=== PATIENT | female | born 1970 | race Caucasian/White ===

== ENCOUNTER 2023-12-24 06:16 | Observation (INO) | payer OTHER, MEDICAID, SELFPAY ==
[2023-12-24] VITALS (15 sets, daily range): BP systolic 96–139; BP diastolic 52–88; PULSE 75–105; RESP 15–18; TEMP 35.5–36.4; O2SAT 94–100; BMI 23.6
--- NOTE | 2023-12-24 06:37 | PC.NURSE ---
see triage note
--- NOTE | 2023-12-24 07:46 | DI.US.S_ITS ---
PROCEDURE: US PERIPH VENOUS LOW EXTREM RT INDICATIONS: redness swelling TECHNIQUE: Real-time imaging, as well as color and pulse Doppler interrogation, were performed of the lower extremity deep veins from the inguinal ligament to the popliteal fossa, with documentation of the visualized calf veins. COMPARISON: None. FINDINGS: The common femoral, femoral, popliteal, and the visualized calf veins are normally compressible, and free of intraluminal thrombus. Color and pulse Doppler demonstrate normal phasic intraluminal flow. There is normal augmentation response to distal compression maneuver. IMPRESSION: No findings of lower extremity deep venous thrombosis. Dictated by: Matthew Reinoso M.D. on 12/24/2023 at 9:10 Approved by: Matthew Reinoso M.D. on 12/24/2023 at 9:10
[2023-12-24 07:49] LABS: Add Manual Diff / Slide Review NO; Basophils Absolute Auto 100 /uL (0-100); Basophils Percent Auto 0.4 % (0-2); Eosinophils Absolute Auto 0 /uL (0-450); Eosinophils Percent Auto 0.1 % (2-4); Hematocrit 43.9 % (36-46); Hemoglobin 14.4 g/dL (12.0-16.0); Lymphocytes Absolute Auto 2000 /uL (1100-4500); Lymphocytes Percent Auto 8.4 % (25-40); Mean Corpuscular HGB Conc 32.7 % (30-36); Mean Corpuscular Hemoglobin 26.6 PG (26-34); Mean Corpuscular Volume 81.2 fL (80-100); Monocytes Absolute Auto 800 /uL (0-900); Monocytes Percent Auto 3.4 % (3-14); Neutrophils Absolute Auto 20600 /uL (1500-7000); Neutrophils Percent Auto 87.7 % (50-75); Platelet Count 367 X10^3/uL (150-400); Red Blood Cell Count 5.41 X10^6/uL (4.0-5.2); Red Cell Distribution Width 16.2 % (11.6-14.8); White Blood Cell Count 23.5 X10^3/uL (4.5-11.0)
--- NOTE | 2023-12-24 07:56 | ED_ITS ---
HPI - Skin/Abscess/Foreign Bdy General Chief complaint: Skin/Abscess/Foreign Body Stated complaint: right leg/cellulitis insect bite? Time Seen by Provider: 12/24/23 06:49 Source: patient Mode of arrival: Wheelchair History of Present Illness HPI narrative: Patient 53-year-old female active fentanyl use her she both injects and smokes presenting today with right leg redness and pain. She says that she woke up like this this morning possibly a spider bite. She denies injecting in her leg. She has multiple scars and wounds on her leg. She denies fever chills chest pain cough shortness of breath. She takes no prescribed medications. She admits to abusing fentanyl just prior to arrival. Related Data Home Medications Medication Instructions Recorded Confirmed No Known Home Medications 12/24/23 12/24/23 Allergies Allergy/AdvReac Type Severity Reaction Status Date / Time No Known Drug Allergies Allergy Verified 12/24/23 06:40 Patient History Social History household members: significant other Smoking Status: Current every day smoker alcohol intake: current Exam Initial Vital Signs Initial Vital Signs: Vital Signs Temperature 97.6 F 12/24/23 06:28 Pulse Rate 105 H 12/24/23 06:28 Respiratory Rate 16 12/24/23 06:28 Blood Pressure 139/88 12/24/23 06:28 Pulse Oximetry 96 12/24/23 06:28 Oxygen Delivery Method Room Air 12/24/23 06:28 GENERAL: Alert disheveled 53-year-old female . HEENT: Head atraumatic,EOMI, pupils reactive, face symmetric, [moist] mucous membranes CARDIOVASCULAR: Regular rate and rhythm without murmurs, rubs or gallops. RESPIRATORY: Breath sounds equal bilaterally, no wheezes rales or rhonchi. ABDOMEN: Soft, nontender. Normoactive bowel sounds all 4 quadrants. No guarding or rebound. EXTREMITIES: Normal range of motion, no clubbing or edema. Neurovascularly intact NEUROLOGICAL: Alert and oriented x4. SKIN: Right lower extremity significant erythema with streaking up beyond knee, swelling, scarring. 1 white area 1 cm anterior velazquez no fluctuation. Multiple other scars noted on other extremities. Course Orders Ordered: ED Orders 12/24/23 07:36 CBC Auto Diff [Complete Blood Count AUTO DIFF] Stat CMP [Comprehensive Metabolic Panel] Stat Lactate (Lactic Acid) Stat Procalcitonin Stat 12/24/23 07:46 US periph venous low extrem rt Stat 12/24/23 07:50 Blood Culture Stat 12/24/23 07:58 CT LE RT w con Stat 12/24/23 12:36 Urine Drug Screen, Rapid Stat Discontinued Medications Acetaminophen (Acetaminophen 325 Mg Tablet) 975 mg PO NOW ONE Stop: 12/24/23 08:04 Last Admin: 12/24/23 08:10 Dose: 975 mg Documented By: EDGAR Ceftriaxone Sodium 1,000 mg/ (Sodium Chloride) 100 mls @ 200 mls/hr IV NOW ONE Stop: 12/24/23 07:47 Last Infusion: 12/24/23 08:44 Dose: Infused Documented By: Admin: 12/24/23 08:03 Dose: 200 mls/hr Documented By: EDGAR Vancomycin HCl/Dextrose (Vancomycin) 1,500 mg in 300 mls @ 200 mls/hr IV NOW ONE Stop: 12/24/23 09:15 Last Infusion: 12/24/23 10:45 Dose: Infused Documented By: Admin: 12/24/23 08:44 Dose: 200 mls/hr Documented By: EDGAR Ketorolac Tromethamine (Ketorolac 30 Mg/Ml Vial) 15 mg IV NOW ONE Stop: 12/24/23 08:04 Last Admin: 12/24/23 08:10 Dose: 15 mg Documented By: EDGAR Vital Signs Vital signs: Vital Signs - 8 hr 12/24/23 06:28 12/24/23 08:05 12/24/23 08:25 Temperature 97.6 F Pulse Rate 105 H 86 Respiratory Rate 16 Blood Pressure 139/88 115/64 Pulse Oximetry 96 97 Oxygen Delivery Method Room Air 12/24/23 08:25 12/24/23 08:27 12/24/23 08:27 Temperature Pulse Rate 90 90 Respiratory Rate Blood Pressure 109/63 Pulse Oximetry 98 99 Oxygen Delivery Method 12/24/23 08:30 12/24/23 08:30 12/24/23 09:00 Temperature Pulse Rate 88 Respiratory Rate Blood Pressure 111/58 L 111/64 Pulse Oximetry 95 Oxygen Delivery Method 12/24/23 09:00 12/24/23 09:30 12/24/23 09:30 Temperature Pulse Rate 90 78 Respiratory Rate 18 Blood Pressure 102/59 L Pulse Oximetry 100 100 Oxygen Delivery Method 12/24/23 10:00 12/24/23 10:00 12/24/23 10:30 Temperature Pulse Rate 80 Respiratory Rate Blood Pressure 108/60 96/52 L Pulse Oximetry 100 Oxygen Delivery Method Room Air 12/24/23 10:30 12/24/23 11:00 12/24/23 11:00 Temperature Pulse Rate 77 81 Respiratory Rate Blood Pressure 103/57 L Pulse Oximetry 100 98 Oxygen Delivery Method Room Air 12/24/23 11:30 12/24/23 11:30 12/24/23 12:00 Temperature 97.5 F L Pulse Rate 94 H Respiratory Rate 18 Blood Pressure 111/73 108/55 L Pulse Oximetry 99 Oxygen Delivery Method 12/24/23 12:00 Temperature Pulse Rate 80 Respiratory Rate Blood Pressure Pulse Oximetry 95 Oxygen Delivery Method Room Air MDM - Skin/Abscess/Foreign Bdy Lab Data 12/24/23 07:36 12/24/23 07:36 Labs: Lab Results 12/24/23 Range/Units 07:36 WBC 23.5 H (4.5-11.0) X10^3/uL RBC 5.41 H (4.0-5.2) X10^6/uL Hgb 14.4 (12.0-16.0) g/dL Hct 43.9 (36-46) % MCV 81.2 (80-100) fL MCH 26.6 (26-34) PG MCHC 32.7 (30-36) % RDW 16.2 H (11.6-14.8) % Plt Count 367 (150-400) X10^3/uL Neut % (Auto) 87.7 H (50-75) % Lymph % (Auto) 8.4 L (25-40) % [place] % (Auto) 3.4 (3-14) % Eos % (Auto) 0.1 L (2-4) % Baso % (Auto) 0.4 (0-2) % Neut # (Auto) 43614 H (7323-9335) /uL Lymph # (Auto) 2000 (5570-5725) /uL [place] # (Auto) 800 (0-900) /uL Eos # (Auto) 0 (0-450) /uL Baso # (Auto) 100 (0-100) /uL Sodium 137 (137-145) mmol/L Potassium 3.2 L (3.4-5.1) mmol/L Chloride 100 (98-107) mmol/L Carbon Dioxide 29 (22-32) mmol/L BUN 13 (7-17) mg/dL Creatinine 0.83 (0.52-1.04) mg/dL Estimated GFR > 60 (>60) mL/min BUN/Creatinine Ratio 15.7 (6-22) Glucose 113 H (70-100) mg/dL Lactate 1.0 (0.7-2.1) mmol/L Calcium 9.4 (8.4-10.2) mg/dL Total Bilirubin 0.9 (0.2-1.3) mg/dL AST 46 H (14-36) IU/L ALT 41 H (<35) IU/L Alkaline Phosphatase 195 H (38-126) U/L Total Protein 7.9 (6.3-8.2) g/dL Albumin 4.1 (3.5-5.0) g/dL Globulin 3.8 (1.7-4.1) g/dL Albumin/Globulin Ratio 1.1 (1.0-2.8) Procalcitonin 2.10 H (<0.5) ng/mL MDM Narrative Medical decision making narrative: [facility] CC: Right leg redness Complicating co-morbidities: IVDA Fentanyl abuse Medical records reviewed: None Differential considered: Cellulitis, necrotizing fasciitis abscess DVT Exam documented above, pertinent findings include: Significant erythema with swelling redness streaking up beyond knee. 1 wound very small 1 cm 1 cm anterior velazquez Lab Test results independently reviewed as above. Pertinent findings: WBC 23.5 Lactate 1.0 Potassium 3.2, sodium 137 creatinine 0.8 UDS positive for opiates methamphetamine amphetamine and cocaine Imaging studies independently reviewed: Ultrasound Negative for DVT CT No abscess or gas performing organisms Consultations: Dr. Wick accepts Treatments: Vancomycin Rocephin Re-evaluations: [ ] Discussion: Patient 53-year-old female high-risk IVDA presenting today with right leg cellulitis. She has significant erythema swelling and streaking up her leg. No evidence of severe sepsis she has a normal lactate of 1.0 however she is significant leukocytosis of 23. Blood pressure and heart rate are within normal limits. CT does not show any gas forming organism no evidence of necrotizing fasciitis no abscess. No DVT. Discharge Plan Departure Patient Disposition: Admitted As Inpatient Clinical Impression: Cellulitis Admit Date/Time: 12/24/23 12:04 Admit Provider: Truman Wick V
--- NOTE | 2023-12-24 07:58 | DI.CT.S_ITS ---
PROCEDURE: CT LE RT W CON INDICATIONS: r/o abcess and gas TECHNIQUE: After the administration of intravenous contrast, 3 mm axial sections acquired of the right lower extremity , with coronal and sagittal reformats. COMPARISON: None. FINDINGS: Image quality: Diagnostic. Bones: No acute fracture or dislocation. Tricompartmental degenerative changes of the right knee. No suspicious osseous lesions. Soft tissues: Visualized vascular structures are well opacified throughout. Diffuse subcutaneous soft tissue edema and mild skin thickening of the mid thigh through the level of the proximal lower leg. There is more pronounced subcutaneous soft tissue stranding and skin thickening over the right lower leg and foot. No organized fluid collection. No CT evidence for soft tissue gas. IMPRESSION: Skin thickening and subcutaneous soft tissue inflammation of the right lower extremity extending from the mid thigh through the foot without evidence for organized fluid collections or soft tissue gas. Dictated by: Matthew Reinoso M.D. on 12/24/2023 at 8:52 Approved by: Matthew Reinoso M.D. on 12/24/2023 at 8:55
[2023-12-24 07:59] LABS: Alanine Aminotransferase 41 IU/L (<35); Albumin 4.1 g/dL (3.5-5.0); Albumin Globulin Ratio 1.1 (1.0-2.8); Alkaline Phosphatase 195 U/L (38-126); Aspartate Aminotransferase 46 IU/L (14-36); BUN Creatinine Ratio 15.7 (6-22); Bilirubin Total 0.9 mg/dL (0.2-1.3); Blood Urea Nitrogen 13 mg/dL (7-17); Calcium 9.4 mg/dL (8.4-10.2); Carbon Dioxide 29 mmol/L (22-32); Chloride 100 mmol/L (98-107); Estimated Glomerular Filt Rate > 60 mL/min (>60); Globulin 3.8 g/dL (1.7-4.1); Glucose 113 mg/dL (70-100); HEMOLYSIS < 15 (0-50); Potassium 3.2 mmol/L (3.4-5.1); Sodium 137 mmol/L (137-145); Total Protein 7.9 g/dL (6.3-8.2)
[2023-12-24] MEDS: cefTRIAXone 1,000 MG in SODIUM CHLORIDE 0.9% 100 ML 200 MG IV (08:03)
[2023-12-24] MEDS: ACETAMINOPHEN 325 MG TABLET 975 MG PO (08:10)
[2023-12-24] MEDS: KETOROLAC 30 MG/ML VIAL 15 MG IV (08:10)
--- NOTE | 2023-12-24 08:13 | PC.NURSE ---
Arrived in room. pt diaphoretic, beads of sweat on the head and face. given wet washcloth. IV US placed 18G RAC. pt with extensive scarring and track earl on bilateral arms. RLE erythmatic, tender, swollen, with 1 small intact papule the size of a pencil eraser on medial aspect of R velazquez. Pt reports pain. Admits to fentanyl use prior to arrival. Tylenol and torodol given per MAY. Blood cultures drawn and pt receiving IV rocephin.
[2023-12-24] MEDS: VANCOMYCIN 1,500 MG/300 ML PIGGYBACK 200 MG IV (08:44)
--- NOTE | 2023-12-24 10:21 | PC.NURSE ---
I assited the patient to try and urinate for a sample, she tried to use the bedpan but was unsuccessful and wanted to try a bedside, I did a stand by assist for the patient to use the commode. The patient was unable to produce urine but stated I feel like I need to pee but I can't. I then did a bladder scan to make sure of no retention, the bladder scan showed 190mL of urine in her bladder. RN made aware.
[2023-12-24 12:52] LABS: Ur Creatinine Normal (Normal); Ur Specific Gravity Normal (Normal); Urine pH Normal (Normal)
[2023-12-24 12:53] LABS: Urine Amphetamines Positive (Negative); Urine Cocaine Positive (Negative); Urine MDMA Positive (Negative); Urine Methamphetamines Positive (Negative); Urine Opiates Positive (Negative); Urine Phencyclidine Negative (Negative); Urine THC Negative (Negative)
[2023-12-24 12:54] LABS: Urine Barbiturates Negative (Negative); Urine Benzodiazepines Negative (Negative)
[2023-12-24 12:55] LABS: Urine Methadone Negative (Negative); Urine Oxycodone Negative (Negative); Urine Tricyclic Antidepressant Negative (Negative)
--- NOTE | 2023-12-24 13:19 | PC.WOUNDPHOT ---
Right lower extremity
--- NOTE | 2023-12-24 13:42 | PC.NURSE ---
Addendum entered by Analy Sanabria R.N. 12/24/23 14:24: Security removed items. I asked pt if she had anything else in her bag that might be unsafe. She said that she would go through the bag with me. Found jewelry, coins, cigarettes, flashlights, and other personal items. There were 5 needles in a side pouch which were disposed of in the sharps container. Police arrived at bedside. Original Note: 1335 During admission assessment going through pt belongings. Found box containing unknown substances and needles. Left room and called security. Security came to bedside to assess the situation.
--- NOTE | 2023-12-24 14:27 | P.HP_ITS ---
History of Present Illness History of Present Illness Date Patient Seen: 12/24/23 Time Patient Seen: 14:15 Chief complaint: right leg/cellulitis insect bite? Narrative: 53-year-old woman who actively uses injected and smoked fentanyl states she woke up this morning with right leg swelling and pain of the right leg. She suspected a spider bite, stating she does not inject drugs into her legs. She was noted to have multiple scars and wounds on her leg. Her urine drug screen was elevated and she had apparent drug paraphernalia in her personal belongings during her nursing intake evaluation on the medical floor. Security was called and subsequently lawn for splint was notified and confiscated material. She last used fentanyl IV last night and states she feels she is going into withdrawal. [facility] Social History household members: significant other Smoking Status: Current every day smoker alcohol intake: current Meds Home Medications and Allergies Home Medications Medication Instructions Recorded Confirmed Type No Known Home Medications 12/24/23 12/24/23 History Allergies Allergy/AdvReac Type Severity Reaction Status Date / Time No Known Drug Allergies Allergy Verified 12/24/23 06:40 Review of Systems Review of Systems ROS: Yes All systems reviewed with the patient and are negative except as otherwise documented Exam Vital Signs (past 8 hours): - 12/24/23 06:28 12/24/23 08:05 12/24/23 08:25 Temperature 97.6 F Pulse Rate 105 H 86 Respiratory Rate 16 Blood Pressure 139/88 115/64 Pulse Oximetry 96 97 Oxygen Delivery Method Room Air 12/24/23 08:25 12/24/23 08:27 12/24/23 08:27 Temperature Pulse Rate 90 90 Respiratory Rate Blood Pressure 109/63 Pulse Oximetry 98 99 Oxygen Delivery Method 12/24/23 08:30 12/24/23 08:30 12/24/23 09:00 Temperature Pulse Rate 88 Respiratory Rate Blood Pressure 111/58 L 111/64 Pulse Oximetry 95 Oxygen Delivery Method 12/24/23 09:00 12/24/23 09:30 12/24/23 09:30 Temperature Pulse Rate 90 78 Respiratory Rate 18 Blood Pressure 102/59 L Pulse Oximetry 100 100 Oxygen Delivery Method 12/24/23 10:00 12/24/23 10:00 12/24/23 10:30 Temperature Pulse Rate 80 Respiratory Rate Blood Pressure 108/60 96/52 L Pulse Oximetry 100 Oxygen Delivery Method Room Air 12/24/23 10:30 12/24/23 11:00 12/24/23 11:00 Temperature Pulse Rate 77 81 Respiratory Rate Blood Pressure 103/57 L Pulse Oximetry 100 98 Oxygen Delivery Method Room Air 12/24/23 11:30 12/24/23 11:30 12/24/23 12:00 Temperature 97.5 F L Pulse Rate 94 H Respiratory Rate 18 Blood Pressure 111/73 108/55 L Pulse Oximetry 99 Oxygen Delivery Method 12/24/23 12:00 12/24/23 12:44 Temperature Pulse Rate 80 80 Respiratory Rate 15 Blood Pressure 111/59 L Pulse Oximetry 95 98 Oxygen Delivery Method Room Air Room Air Oxygen Delivery Method Room Air Narrative Exam Narrative: GENERAL: This is a well-nourished, well-developed patient, in no apparent distress. HEAD: Atraumatic. Normocephalic. No temporal or scalp tenderness. EYES: Pupils equal round and reactive. Extraocular motions intact. No scleral icterus. No injection or drainage. ENT: Mucous membranes pink and moist. NECK: Trachea midline. No JVD, bruits or lymphadenopathy. Supple, nontender, no meningeal signs. CARDIOVASCULAR: Regular rate and rhythm without murmurs, gallops, or rubs. RESPIRATORY: Clear to auscultation. GASTROINTESTINAL: Abdomen soft, non-tender, nondistended. EXTREMITIES: No clubbing, cyanosis, or edema. BACK: Nontender without deformity or crepitance. No flank tenderness. NEUROLOGIC: Alert, oriented, speech fluent, full upper and lower motor strength, no focal deficits evident. DERMATOLOGIC: Right lower extremity with erythema from just above the ankle to the posterior thigh, with old scars along the lateral proximal calf and distal thigh from old healed injection sites. Objective Imaging Right lower extremity CT with contrast: Radiologist's impression: Skin thickening and subcutaneous soft tissue inflammation of the right lower extremity extending from the mid thigh through the foot without evidence for organized fluid collections or soft tissue gas. Right lower extremity venous ultrasound: Radiologist's impression: No findings of lower extremity deep venous thrombosis. Labs 12/24/23 07:36 12/24/23 07:36 Labs: Laboratory Results - last 24 hr 10/20/24 10/20/24 07:36 12:36 WBC 23.5 H RBC 5.41 H Hgb 14.4 Hct 43.9 MCV 81.2 MCH 26.6 MCHC 32.7 RDW 16.2 H Plt Count 367 Neut % (Auto) 87.7 H Lymph % (Auto) 8.4 L [place] % (Auto) 3.4 Eos % (Auto) 0.1 L Baso % (Auto) 0.4 Neut # (Auto) 86988 H Lymph # (Auto) 2000 [place] # (Auto) 800 Eos # (Auto) 0 Baso # (Auto) 100 Sodium 137 Potassium 3.2 L Chloride 100 Carbon Dioxide 29 BUN 13 Creatinine 0.83 Estimated GFR > 60 BUN/Creatinine Ratio 15.7 Glucose 113 H Lactate 1.0 Calcium 9.4 Total Bilirubin 0.9 AST 46 H ALT 41 H Alkaline Phosphatase 195 H Total Protein 7.9 Albumin 4.1 Globulin 3.8 Albumin/Globulin Ratio 1.1 Procalcitonin 2.10 H U Opiates 300ng/mL cut Positive H Ur Oxycodone Screen Negative Urine Methadone Screen Negative Ur Barbiturates Screen Negative U Tricyclic Antidepress Negative Ur Phencyclidine Scrn Negative Ur Amphetamines Screen Positive H U Methamphetamines Scrn Positive H Ur MDMA Scrn (Ecstasy) Positive H U Benzodiazepines Scrn Negative Urine Cocaine Screen Positive H U Marijuana (THC) Screen Negative Urine pH Normal Urine Specific [place] Normal Ur Creatinine Normal Assessment & Plan Assessment & Plan narrative: 1. Right lower extremity cellulitis. Continue IV ceftriaxone and vancomycin pending cultures. 2. Sepsis due to 1. With leukocytosis and tachycardia. Monitor with antibiotics and treatment. 3. Polysubstance abuse. Monitor for withdrawal. Start methadone 10 mg by mouth every 6 hours for fentanyl withdrawal. Law enforcement has confiscated drug paraphernalia. She is interested in referral for drug treatment options at discharge. 4. DVT prophylaxis. Low-dose Lovenox. 5. Code status: Full code. Plan: -admit as inpatient -IV antibiotics -follow cultures -methadone 10 mg every 6 hours -monitor for substance withdrawal -drug treatment referral -Lovenox -full code The patient is admitted inpatient status as she will require at least 2 midnights of inpatient level care. Quality MIPS - Admit I confirm the patient?s Advance Care Plan is present, Code status is documented, Surrogate decision maker is in patient?s record [If Yes, STOP here]: Yes [facility] - Meds 'Current medications' to include all prescriptions, [id number] products, herbals, cannabis/cannabidiol products, and vitamin/mineral/dietary (nutritional) supplements. I have utilized all available resources to obtain, update, or review the patient?s current medications. [If Yes, STOP here]: Yes [facility] Charge Codes Initial inpatient/observation care: 12111
[2023-12-24] MEDS: METHADONE 10 MG TABLET PO ×2 (15:36→23:52)
[2023-12-24] MEDS: VANCOMYCIN 750 MG/150 ML PIGGYBACK 150 MG IV (16:46)
[2023-12-25 00:06] VITALS: BP 132/72; PULSE 98; RESP 18; TEMP 36.7; O2SAT 93
[2023-12-25] MEDS: VANCOMYCIN 750 MG/150 ML PIGGYBACK 150 MG IV ×3 (01:44→17:07)
[2023-12-25] MEDS: KETOROLAC 30 MG/ML VIAL IV (04:06)
[2023-12-25 04:10] VITALS: BP 121/61; PULSE 95; RESP 18; TEMP 35.9; O2SAT 95
[2023-12-25 05:17] LABS: Add Manual Diff / Slide Review NO; Basophils Absolute Auto 100 /uL (0-100); Basophils Percent Auto 0.4 % (0-2); Eosinophils Absolute Auto 100 /uL (0-450); Eosinophils Percent Auto 0.5 % (2-4); Hematocrit 38.6 % (36-46); Hemoglobin 12.6 g/dL (12.0-16.0); Lymphocytes Absolute Auto 1800 /uL (1100-4500); Lymphocytes Percent Auto 7.6 % (25-40); Mean Corpuscular HGB Conc 32.7 % (30-36); Mean Corpuscular Hemoglobin 26.4 PG (26-34); Mean Corpuscular Volume 80.7 fL (80-100); Monocytes Absolute Auto 1300 /uL (0-900); Monocytes Percent Auto 5.3 % (3-14); Neutrophils Absolute Auto 20500 /uL (1500-7000); Neutrophils Percent Auto 86.2 % (50-75); Platelet Count 362 X10^3/uL (150-400); Red Blood Cell Count 4.78 X10^6/uL (4.0-5.2); White Blood Cell Count 23.8 X10^3/uL (4.5-11.0)
[2023-12-25 05:25] LABS: Alanine Aminotransferase 28 IU/L (<35); Albumin Globulin Ratio 0.9 (1.0-2.8); Alkaline Phosphatase 122 U/L (38-126); Aspartate Aminotransferase 28 IU/L (14-36); BUN Creatinine Ratio 20.3 (6-22); Bilirubin Total 0.4 mg/dL (0.2-1.3); Blood Urea Nitrogen 12 mg/dL (7-17); Calcium 8.6 mg/dL (8.4-10.2); Carbon Dioxide 29 mmol/L (22-32); Chloride 102 mmol/L (98-107); Estimated Glomerular Filt Rate > 60 mL/min (>60); Globulin 3.3 g/dL (1.7-4.1); Glucose 120 mg/dL (70-100); HEMOLYSIS 20 (0-50); Potassium 3.1 mmol/L (3.4-5.1); Sodium 136 mmol/L (137-145); Total Protein 6.3 g/dL (6.3-8.2)
[2023-12-25] MEDS: METHADONE 10 MG TABLET PO ×3 (06:28→17:07)
[2023-12-25] MEDS: cefTRIAXone 1,000 MG in SODIUM CHLORIDE 0.9% 100 ML 200 MG IV (06:28)
[2023-12-25 08:00] VITALS: BP 101/64; PULSE 98; RESP 16; TEMP 36.1; O2SAT 94
--- NOTE | 2023-12-25 08:23 | PM.PN.1 ---
Subjective Subjective Interval history: Summary: 53-year-old woman who actively uses injected and smoked fentanyl states she woke up this morning with right leg swelling and pain of the right leg. She suspected a spider bite, stating she does not inject drugs into her legs. She was noted to have multiple scars and wounds on her leg. Her urine drug screen was elevated and she had apparent drug paraphernalia in her personal belongings during her nursing intake evaluation on the medical floor. Security was called and subsequently lawn for splint was notified and confiscated material. She last used fentanyl IV last night and states she feels she is going into withdrawal. S: Her leg feels better today. It is still red and quite swollen. It was still pain fall. She denies any fevers. No nausea. She did sleep well last night. Exam Vital Signs (past 8 hours): - 12/25/23 04:10 Temperature 96.7 F L Pulse Rate 95 H Respiratory Rate 18 Blood Pressure 121/61 Pulse Oximetry 95 Oxygen Flow Rate 0 Oxygen Delivery Method Room Air Oxygen Flow Rate 0 Narrative Exam Narrative: NAD, alert and oriented. Fluent speech. Lungs are clear, normal rate and effort. Heart is regular, no murmur gallop or rub. Abdomen is soft, non distended. Extremities: Right leg is swollen and pink. There are no focal fluid collections. Multiple skin lesions are noted. Objective Imaging Multiple studies:: Radiologist's impression: Right lower extremity CT with contrast: Radiologist's impression: Skin thickening and subcutaneous soft tissue inflammation of the right lower extremity extending from the mid thigh through the foot without evidence for organized fluid collections or soft tissue gas. Right lower extremity venous ultrasound: Radiologist's impression: No findings of lower extremity deep venous thrombosis. Labs 12/25/23 05:03 12/25/23 05:03 Labs: Laboratory Results - last 24 hr 12/24/23 12/24/23 12/25/23 07:36 12:36 05:03 WBC 23.8 H RBC 4.78 Hgb 12.6 Hct 38.6 MCV 80.7 MCH 26.4 MCHC 32.7 RDW 16.0 H Plt Count 362 Neut % (Auto) 86.2 H Lymph % (Auto) 7.6 L [place] % (Auto) 5.3 Eos % (Auto) 0.5 L Baso % (Auto) 0.4 Neut # (Auto) 38159 H Lymph # (Auto) 1800 [place] # (Auto) 1300 H Eos # (Auto) 100 Baso # (Auto) 100 Sodium 136 L Potassium 3.1 L Chloride 102 Carbon Dioxide 29 BUN 12 Creatinine 0.59 Estimated GFR > 60 BUN/Creatinine Ratio 20.3 Glucose 120 H Calcium 8.6 Total Bilirubin 0.4 AST 28 ALT 28 Alkaline Phosphatase 122 D Total Protein 6.3 Albumin 3.0 L Globulin 3.3 Albumin/Globulin Ratio 0.9 L Procalcitonin 2.10 H U Opiates 300ng/mL cut Positive H Ur Oxycodone Screen Negative Urine Methadone Screen Negative Ur Barbiturates Screen Negative U Tricyclic Antidepress Negative Ur Phencyclidine Scrn Negative Ur Amphetamines Screen Positive H U Methamphetamines Scrn Positive H Ur MDMA Scrn (Ecstasy) Positive H U Benzodiazepines Scrn Negative Urine Cocaine Screen Positive H U Marijuana (THC) Screen Negative Urine pH Normal Urine Specific [place] Normal Ur Creatinine Normal PFSH Social History household members: significant other Smoking Status: Current every day smoker alcohol intake: current Assessment & Plan Assessment & Plan narrative: 1. Right lower extremity cellulitis. Continue IV ceftriaxone and vancomycin pending cultures. 2. Sepsis due to 1. With leukocytosis and tachycardia. Monitor with antibiotics and treatment. 3. Polysubstance abuse. Monitor for withdrawal. Start methadone 10 mg by mouth every 6 hours for fentanyl withdrawal. Law enforcement has confiscated drug paraphernalia. She is interested in referral for drug treatment options at discharge. 4. DVT prophylaxis. Low-dose Lovenox. 5. Code status: Full code. Plan: -continue IV antibiotics -follow cultures -methadone 10 mg every 6 hours, continue. -monitor for substance withdrawal, none seen. -drug treatment referral -Lovenox for DVT prophylaxis. -full code -[place] 12/25 The patient is admitted inpatient status as she will require at least 2 midnights of inpatient level care. Time-Based Coding :: [TOTAL MINUTES] spent with patient and on the chart (including review of chart, obtaining history, exam, reviewing outside data, placing orders, documenting exam and treatment plan, and counseling patient) on [DATE].
[2023-12-25 09:03] LABS: Vancomycin Trough 11.1 ug/mL (10-20)
[2023-12-25] MEDS: ENOXAPARIN 40 MG/0.4 ML SYRINGE SUBCUT (09:24)
[2023-12-25] MEDS: POTASSIUM CHLORIDE 20 MEQ TAB 40 MEQ PO ×2 (09:24→13:30)
[2023-12-25 12:00] VITALS: BP 117/70; PULSE 83; RESP 17; TEMP 36.3; O2SAT 95
[2023-12-25 18:00] VITALS: BP 117/78; PULSE 80; RESP 14; TEMP 36.4; O2SAT 95
[2023-12-25 20:00] VITALS: BP 134/79; PULSE 87; RESP 18; TEMP 37; O2SAT 96
[2023-12-26] VITALS: BP 135/74; PULSE 86; RESP 19; TEMP 36.4; O2SAT 96
[2023-12-26] MEDS: VANCOMYCIN 750 MG/150 ML PIGGYBACK 150 MG IV ×3 (00:05→17:22)
[2023-12-26] MEDS: METHADONE 10 MG TABLET PO ×4 (00:05→17:22)
[2023-12-26] MEDS: cefTRIAXone 1,000 MG in SODIUM CHLORIDE 0.9% 100 ML 200 MG IV (06:00)
[2023-12-26 06:01] VITALS: BP 131/77; PULSE 89; RESP 18; TEMP 36.2; O2SAT 96
[2023-12-26 06:09] LABS: Hematocrit 38.7 % (36-46); Hemoglobin 12.8 g/dL (12.0-16.0); Mean Corpuscular Hemoglobin 26.5 PG (26-34); Mean Corpuscular Volume 80.4 fL (80-100); Platelet Count 369 X10^3/uL (150-400); Red Blood Cell Count 4.82 X10^6/uL (4.0-5.2); Red Cell Distribution Width 16.3 % (11.6-14.8); White Blood Cell Count 14.9 X10^3/uL (4.5-11.0)
[2023-12-26 06:47] LABS: Blood Urea Nitrogen 8 mg/dL (7-17); Calcium 8.7 mg/dL (8.4-10.2); Carbon Dioxide 26 mmol/L (22-32); Chloride 108 mmol/L (98-107); Estimated Glomerular Filt Rate > 60 mL/min (>60); Glucose 94 mg/dL (70-100); Potassium 4.1 mmol/L (3.4-5.1); Sodium 138 mmol/L (137-145)
[2023-12-26 06:50] LABS: HEMOLYSIS 93 (0-50)
[2023-12-26] MEDS: KETOROLAC 30 MG/ML VIAL 15 MG IV ×2 (08:03→17:24)
[2023-12-26] MEDS: ENOXAPARIN 40 MG/0.4 ML SYRINGE SUBCUT (08:04)
[2023-12-26 10:00] VITALS: BP 138/88; PULSE 78; RESP 16; TEMP 36.4; O2SAT 95
--- NOTE | 2023-12-26 11:13 | PM.PN.1 ---
Subjective Subjective Interval history: Summary:53-year-old woman who actively uses injected and smoked fentanyl states she woke up this morning with right leg swelling and pain of the right leg. She suspected a spider bite, stating she does not inject drugs into her legs. She was noted to have multiple scars and wounds on her leg. Her urine drug screen was elevated and she had apparent drug paraphernalia in her personal belongings during her nursing intake evaluation on the medical floor. Security was called and subsequently lawn for splint was notified and confiscated material. She last used fentanyl IV last night and states she feels she is going into withdrawal. S: She is still having significant right leg swelling and pain. No nausea or dyspnea. Exam Vital Signs (past 8 hours): - 12/26/23 06:01 12/26/23 10:00 Temperature 97.1 F L 97.6 F Pulse Rate 89 78 Respiratory Rate 18 16 Blood Pressure 131/77 138/88 Pulse Oximetry 96 95 Oxygen Flow Rate 0 0 Oxygen Delivery Method Room Air Oxygen Flow Rate 0 Narrative Exam Narrative: NAD, alert and oriented. Fluent speech. Lungs are clear, normal rate and effort. Heart is regular, no murmur gallop or rub. Abdomen is soft, non distended. Extremities: right leg is still swollen and red. Fairly tender. Objective Labs 12/26/23 06:00 12/26/23 06:00 Labs: Laboratory Results - last 24 hr 12/26/23 06:00 WBC 14.9 H RBC 4.82 Hgb 12.8 Hct 38.7 MCV 80.4 MCH 26.5 MCHC 33.0 RDW 16.3 H Plt Count 369 Sodium 138 Potassium 4.1 Chloride 108 H Carbon Dioxide 26 BUN 8 Creatinine 0.57 Estimated GFR > 60 BUN/Creatinine Ratio 14.0 Glucose 94 Calcium 8.7 PFSH Social History household members: significant other Smoking Status: Current every day smoker alcohol intake: current Assessment & Plan Assessment & Plan narrative: 1. Right lower extremity cellulitis. present on admission and active. 2. Sepsis due to 1. With leukocytosis and tachycardia. Monitor with antibiotics and treatment. 3. Polysubstance abuse. Monitor for withdrawal. Start methadone 10 mg by mouth every 6 hours for fentanyl withdrawal. Law enforcement has confiscated drug paraphernalia. She is interested in referral for drug treatment options at discharge. 4. DVT prophylaxis. Low-dose Lovenox. 5. Code status: Full code. Plan: -continue IV antibiotics (Ceftriaxone and Vanco). MRSA screen ordered. -follow cultures (neg blood cx) -methadone 10 mg every 6 hours, continue. -monitor for substance withdrawal, none -drug treatment referral Needs another night of IV antibiotics given severe swollen, pain and leukocytosis. -Lovenox for DVT prophylaxis. -full code -TAHIRA 12/26 Time-Based Coding :: [TOTAL MINUTES] spent with patient and on the chart (including review of chart, obtaining history, exam, reviewing outside data, placing orders, documenting exam and treatment plan, and counseling patient) on [DATE].
[2023-12-26 13:44] LABS: MRSA (Nasal) PCR DETECTED (Not Detect)
[2023-12-26 14:00] VITALS: BP 144/90; PULSE 88; RESP 15; TEMP 36.4; O2SAT 95
--- NOTE | 2023-12-26 15:29 | CM.DANOTE ---
DPA Note: Patient is a 53 y/o F admitted with RLE cellulitis and sepsis and known IV drug use, reportedly Fentanyl. Patient states she lives at home with her spouse, who she states uses Heroine, and has early signs of dementia after a recent overdose and hospitalization. Patient states she lives in [place] in a mobile home and gets rides from friends. She voiced interest in rehab at d/c, discussed inpatient vs. outpatient options and she states she needs to return home before she can commit to rehab. List provided of detox and rehab options. Patient states she does not have a phone or way to contact anyone for a ride at discharge. She does have Medicaid and transport through Medicaid can be arranged when ready to d/c. D/C Home via medicaid transport, patient to f/u for rehab. No other needs identified or expressed. MANUEL Ramos
[2023-12-26 18:00] VITALS: BP 128/68; PULSE 88; RESP 17; TEMP 36.5; O2SAT 95
[2023-12-26 21:00] VITALS: BP 128/86; PULSE 74; RESP 18; TEMP 37.1; O2SAT 96
[2023-12-27] MEDS: METHADONE 10 MG TABLET PO ×3 (00:08→11:35)
[2023-12-27] MEDS: VANCOMYCIN 750 MG/150 ML PIGGYBACK 150 MG IV ×2 (00:11→10:05)
[2023-12-27 00:34] VITALS: BP 138/79; PULSE 86; RESP 18; TEMP 37; O2SAT 96
[2023-12-27 05:00] VITALS: BP 130/82; PULSE 77; RESP 18; TEMP 37.1; O2SAT 96
[2023-12-27] MEDS: cefTRIAXone 1,000 MG in SODIUM CHLORIDE 0.9% 100 ML 200 MG IV (06:13)
[2023-12-27 08:00] VITALS: BP 156/67; PULSE 75; RESP 16; TEMP 36.2; O2SAT 98
[2023-12-27] MEDS: ENOXAPARIN 40 MG/0.4 ML SYRINGE SUBCUT (08:52)
[2023-12-27 09:13] LABS: Hematocrit 40.3 % (36-46); Hemoglobin 13.3 g/dL (12.0-16.0); Mean Corpuscular Hemoglobin 26.4 PG (26-34); Platelet Count 446 X10^3/uL (150-400); Red Blood Cell Count 5.04 X10^6/uL (4.0-5.2); White Blood Cell Count 9.1 X10^3/uL (4.5-11.0)
--- NOTE | 2023-12-27 10:47 | PM.DS.1 ---
History of Present Illness History of Present Illness Chief complaint: right leg/cellulitis insect bite? Narrative: From H&P: 53-year-old woman who actively uses injected and smoked fentanyl states she woke up this morning with right leg swelling and pain of the right leg. She suspected a spider bite, stating she does not inject drugs into her legs. She was noted to have multiple scars and wounds on her leg. Her urine drug screen was elevated and she had apparent drug paraphernalia in her personal belongings during her nursing intake evaluation on the medical floor. Security was called and subsequently lawn for spl[employer] was notified and confiscated material. She last used fentanyl IV last night and states she feels she is going into withdrawal. Discharge Providers Provider Date of admission: 12/24/23 12:04 Discharge Date: 12/27/23 Consults: None. Discharge provider: Ede Stern MD Summary Hospital Course Discharge Diagnosis: 1. Right lower extremity cellulitis. present on admission and active. 2. Sepsis due to 1. With leukocytosis and tachycardia. Monitor with antibiotics and treatment. 3. Polysubstance abuse. Monitor for withdrawal. Start methadone 10 mg by mouth every 6 hours for fentanyl withdrawal. Law enforcement has confiscated drug paraphernalia. She is interested in referral for drug treatment options at discharge. Hospital Course: She was admitted for cellulitis and treated with IV antibiotics. She kept the leg elevated and had slow improvement. Over the last 24 hours the leg did improve remarkably. She had no withdrawal and was maintained on methadone. The patient had initial imaging which was negative for fasciitis or fluid collection of the leg and clinically her leg improved and appeared to be a cellulitis. Her nares MRSA swab was positive. On the day of discharge she felt much improved was comfortable with discharge home and we will continue on oral antibiotics. Status at Discharge Cognitive/behavioral status at discharge: oriented Functional status at discharge: independent ambulation Overall status at discharge: patient is back to baseline Time Spent with Patient Time spent: Greater than 30 minutes Exam Vital Signs (past 8 hours): - 12/27/23 05:00 12/27/23 08:00 Temperature 98.8 F 97.1 F L Pulse Rate 77 75 Respiratory Rate 18 16 Blood Pressure 130/82 156/67 H Pulse Oximetry 96 98 Oxygen Flow Rate 0 0 Oxygen Delivery Method Room Air Oxygen Flow Rate 0 Narrative Exam Narrative: NAD, alert and oriented. Fluent speech. Lungs are clear, normal rate and effort. Heart is regular, no murmur gallop or rub. Abdomen is soft, non distended. Extremitiesz: The right leg is minimally red and minimally swollen. It was not tender to touch today. Objective Imaging CT leg:: Radiologist's impression: Right lower extremity CT with contrast: Radiologist's impression: Skin thickening and subcutaneous soft tissue inflammation of the right lower extremity extending from the mid thigh through the foot without evidence for organized fluid collections or soft tissue gas. Right lower extremity venous ultrasound: Radiologist's impression: No findings of lower extremity deep venous thrombosis. Labs Labs 12/27/23 09:05 12/26/23 06:00 Labs: Laboratory Results - last 24 hr 12/26/23 12/27/23 12:30 09:05 WBC 9.1 RBC 5.04 Hgb 13.3 Hct 40.3 MCV 80.0 MCH 26.4 MCHC 33.0 RDW 16.0 H Plt Count 446 H Nasal Screen MRSA (PCR) Detected H PFSH Social History household members: significant other Smoking Status: Current every day smoker alcohol intake: current Discharge Assessment & Plan Assessment and Plan Assessment: 1. Right lower extremity cellulitis. present on admission and improved. 2. Sepsis due to 1. With leukocytosis and tachycardia. POA and resolved. 3. Polysubstance abuse. Stable. Plan of Treatment: Discharge home with oral antibiotics, doxycycline b.i.d. for 7 additional days. Follow up with PCP within the next 6 days for reassessment. Come back to the hospital for increased redness, pain, or swelling. Discharge Plan Discharge Plan Patient Disposition: Home Provider Discharge Comment: Stable for discharge home on oral antibiotcs. Discharge orders & Medications Prescriptions: New doxycycline hyclate 100 mg capsule 100 mg PO BID Qty: 14 0RF Medication counseling provided by Pharmacist: No Discharge Health Status Multidrug resistant organism: MRSA Diet/Activity/Treatments Diet: Regular Skin/Wound/Dressing Care Report to your healthcare provider any signs of infection, such as:: chills, fever, increased pain, unusual drainage and unusual redness Visit Report/Discharge Packet Instructions: DI for Cellulitis -- Adult Stand Alone Forms: Patient Portal/API
--- NOTE | 2023-12-27 11:28 | CM.DPNOTE ---
Addendum entered by MANUEL Hidalgo 12/27/23 11:35: from [facility] transport, [employer] will pick her up at the main entrance at 1230. ASPHALT PAVING MACHINE OPERATOR updated RN/pt. Pt in agreement with plan, deny other needs. SL Original Note: DCP note ASPHALT PAVING MACHINE OPERATOR reviewed EMR. per hospitalist, pt cleared for home today. Per RN pt will dc home with one new script. ASPHALT PAVING MACHINE OPERATOR met with pt in room. Denies other SW/drug use resources at this time. Confirms needing a ride. Confirms address. pharmacy is [facility] in [place]. ASPHALT PAVING MACHINE OPERATOR spoke with [employer] transport, confirm pt's benefit. ASPHALT PAVING MACHINE OPERATOR faxed in form, transport time pending. P: dc home today with OP drug use follow up recommended. will transport with [facility] [employer] transport, time pending, will p/u new script prior to dc home. CM team will continue to follow as needed MANUEL Hidalgo
--- NOTE | 2023-12-27 12:26 | PC.NURSE ---
Patient is A&OX4, VSS, afebrile on RA this a.m. She tolerates some breakfast and reports pain to RLE is minimal she is able to ambulate and put weight on RLE. She expresses eagerness to discharge home today. After evaluation by the hospitalist, she is cleared for discharge home with oral antibiotics. She verbalizes understanding of discharge medications, and plan to call provider with worsening symptoms. She is escorted via w/ch to [employer] transport van today at 1210 pm for transport to [facility]'s pharmacy and to home.
== END 2023-12-27 12:10 | disposition home or self-care (01) ==
LOC: ED 12:01 → AC 23:34
PROVIDERS: Emergency Medicine; Hospitalist; Admitting Provider Internal Medicine; Emergency Provider Emergency Medicine; Referring Provider Emergency Medicine; Visit Provider Internal Medicine
DX: A41.02 Sepsis due to Methicillin resistant Staphylococcus aureus (principal); L03.115 Cellulitis of right lower limb; F19.129 Other psychoactive substance abuse with intoxication, unspecified
CPT/HCPCS: 36415; 51798; 73701; 80048; 80053; 80202; 80305; 83605; 84145; 85025; 85027; 87040; 87797; 93971; 96365; 96366; 96367; 96372; 96375; 96376; 99284; G0378; J0696; J1650; J1885; Q9967

== ENCOUNTER 2024-02-16 14:28 | Inpatient (IN) | payer OTHER, SELFPAY ==
[2023-12-24 12:10] VITALS: BMI 23.6
[2024-02-16] VITALS (7 sets, daily range): BP systolic 137–169; BP diastolic 60–78; PULSE 106–120; RESP 14–29; TEMP 36.2–37.4; O2SAT 94–97; BMI 24.3
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
--- NOTE | 2024-02-16 17:53 | PC.NURSE ---
1730 Patient in room.
[2024-02-16 17:55] LABS: Add Manual Diff / Slide Review YES; Hematocrit 43.9 % (36-46); Hemoglobin 14.2 g/dL (12.0-16.0); Mean Corpuscular HGB Conc 32.4 % (30-36); Mean Corpuscular Hemoglobin 26.6 PG (26-34); Mean Corpuscular Volume 82.2 fL (80-100); Platelet Count 393 X10^3/uL (150-400); Red Blood Cell Count 5.34 X10^6/uL (4.0-5.2); White Blood Cell Count 25.2 X10^3/uL (4.5-11.0)
--- NOTE | 2024-02-16 17:56 | PC.NURSE ---
Redness and swelling to left leg from toes up to left thigh wound to left thigh which she states is from falling off my deck several days ago, I scraped it. She admits to IV drug use however has only smoked it in the last few days. Patient has abscess pitted scars all over thighs and upper arms and IV drug use scarring to arms.
[2024-02-16 18:00] LABS: Alanine Aminotransferase 44 IU/L (<35); Albumin 4.2 g/dL (3.5-5.0); Alkaline Phosphatase 141 U/L (38-126); Aspartate Aminotransferase 45 IU/L (14-36); BUN Creatinine Ratio 17.6 (6-22); Bilirubin Total 1.3 mg/dL (0.2-1.3); Blood Urea Nitrogen 15 mg/dL (7-17); Calcium 9.1 mg/dL (8.4-10.2); Carbon Dioxide 27 mmol/L (22-32); Chloride 95 mmol/L (98-107); Estimated Glomerular Filt Rate > 60 mL/min (>60); Globulin 4.1 g/dL (1.7-4.1); Glucose 142 mg/dL (70-100); HEMOLYSIS < 15 (0-50); Potassium 3.5 mmol/L (3.4-5.1); Sodium 134 mmol/L (137-145); Total Protein 8.3 g/dL (6.3-8.2)
[2024-02-16 18:01] LABS: Lactate (Lactic Acid) 3.1 mmol/L (0.7-2.1)
--- NOTE | 2024-02-16 18:09 | ED.SKABFB ---
HPI - Skin/Abscess/Foreign Bdy General Chief complaint: Skin/Abscess/Foreign Body Stated complaint: lft leg swelling and px Time Seen by Provider: 02/16/24 17:45 Source: patient Mode of arrival: Wheelchair Limitations: no limitations History of Present Illness HPI narrative: 53-year-old female with history of IV drug use, states that she last injected a month ago, now with 2 days duration of left leg redness, no injury puncture known. Leg is quite painful. No penetrating injury known to the left leg. No bites stings scratching ulcers stab wounds or other injuries known. She has not felt feverish. Nursing notes indicate the patient has used heroin yesterday, apparently noninjected formulation/route. Related Data Home Medications Medication Instructions Recorded Confirmed No Known Home Medications 02/16/24 02/16/24 Allergies Allergy/AdvReac Type Severity Reaction Status Date / Time No Known Drug Allergies Allergy Verified 12/24/23 06:40 Review of Systems Review of Systems Narrative: see HPI Patient History Social History household members: significant other Smoking Status: Current every day smoker alcohol intake: current Smoking Status: Current every day smoker tobacco type: cigarettes alcohol intake frequency: holidays/special occasions only Exam Narrative Exam Narrative: GENERAL: Well-developed patient, in mild distress. HEAD: Atraumatic. Normocephalic. EYES: Pupils equal round and reactive. Extraocular motions intact. No scleral icterus. No injection or drainage. ENT: Nose without bleeding, purulent drainage. Throat without erythema, tonsillar hypertrophy or exudate. Airway patent. Circular raised skin lesion right maxilla face, consistent with basal cell, proximally 1 cm diameter with central ulcer, no surrounding erythema NECK: Trachea midline. Non tender CARDIOVASCULAR: Regular rate and rhythm without murmurs, gallops, or rubs. RESPIRATORY: Clear to auscultation. Breath sounds equal bilaterally. No wheezes, rales, or rhonchi. GASTROINTESTINAL: Abdomen soft, non-tender, nondistended. EXTREMITIES: Old skin burn scar like injury left lateral upper extremity, without gross redness. Left lower extremity with patchy erythema from left groin down through the distal calf, no areas of drainage or fluctuance, no crepitance. BACK: Nontender without deformity or crepitance. No flank tenderness. NEURO: AOx3. Motor functions grossly nonfocal SKIN: No rash or erythema of visible areas Initial Vital Signs Initial Vital Signs: Vital Signs Temperature 99.3 F 02/16/24 15:04 Pulse Rate 115 H 02/16/24 15:04 Respiratory Rate 16 02/16/24 15:04 Blood Pressure 150/69 H 02/16/24 15:04 Pulse Oximetry 97 02/16/24 15:04 Oxygen Delivery Method Room Air 02/16/24 15:04 Course Orders Ordered: ED Orders 02/16/24 17:40 Complete Blood Count AUTO DIFF Stat Comprehensive Metabolic Panel Stat Lactate (Lactic Acid) Stat Procalcitonin Stat 02/16/24 17:48 Ethanol (ETOH) Stat 02/16/24 18:30 Blood Culture Stat 02/16/24 18:34 CT LE LT w con Stat 02/16/24 22:05 Urine Drug Screen, Rapid Stat Vancomycin HCl/Dextrose (Vancomycin) 1,500 mg in 300 mls @ 200 mls/hr IV Q12H MIGUEL Last Infusion: 02/16/24 21:00 Dose: Infused Documented By: Admin: 02/16/24 19:26 Dose: 200 mls/hr Documented By: LUISITO Influenza Virus Vaccine (Influenza Vaccine Qiv 0.5 Ml Syringe) 0.5 ml IM .ONCE ONE Stop: 02/17/24 09:01 Discontinued Medications Acetaminophen (Acetaminophen 325 Mg Tablet) 975 mg PO NOW ONE Stop: 02/16/24 19:22 Last Admin: 02/16/24 19:28 Dose: 975 mg Documented By: LUISITO Sodium Chloride (Normal Saline 0.9%) 500 mls @ 1,000 mls/hr IV BOLUS ONE Stop: 02/16/24 18:14 Last Infusion: 02/16/24 19:28 Dose: Infused Documented By: Admin: 02/16/24 18:41 Dose: 1,000 mls/hr Documented By: LUISITO Ceftriaxone Sodium 1,000 mg/ (Sodium Chloride) 100 mls @ 200 mls/hr IV NOW ONE Stop: 02/16/24 17:46 Last Infusion: 02/16/24 19:28 Dose: Infused Documented By: Admin: 02/16/24 18:35 Dose: 200 mls/hr Documented By: LUISITO Sodium Chloride (Normal Saline 0.9%) 1,000 mls @ 1,000 mls/hr IV BOLUS ONE Stop: 02/16/24 19:34 Last Infusion: 02/16/24 20:49 Dose: Infused Documented By: Admin: 02/16/24 18:41 Dose: 1,000 mls/hr Documented By: LUISITO Clindamycin Phosphate (Cleocin) 900 mg in 50 mls @ 50 mls/hr IV NOW ONE Stop: 02/16/24 19:45 Last Admin: 02/16/24 21:03 Dose: 50 mls/hr Documented By: Vital Signs Vital signs: Vital Signs - 8 hr 02/16/24 17:30 02/16/24 17:30 02/16/24 19:02 Pulse Rate 120 H 108 H Respiratory Rate 17 Blood Pressure 142/75 H Pulse Oximetry 97 02/16/24 19:15 02/16/24 19:15 02/16/24 19:30 Pulse Rate 107 H 112 H Respiratory Rate 26 H 24 Blood Pressure 168/72 H Pulse Oximetry 94 94 02/16/24 19:30 02/16/24 20:00 02/16/24 20:00 Pulse Rate 106 H Respiratory Rate 29 H Blood Pressure 166/77 H 169/78 H Pulse Oximetry 97 MDM - Skin/Abscess/Foreign Bdy Lab Data Attestation: I reviewed the patient's lab results. Lab results narrative: White blood cell count 08679, hemoglobin 14.2, platelets [id number]. Basic metabolic panel unremarkable. T bili 1.3, alkaline phosphatase 141 slight elevation, AST/ALT slight elevations. Lactate 3.1 elevated. Prolactin 8.15 elevated. Blood cultures requested. 02/16/24 17:40 02/16/24 17:40 Labs: Lab Results 02/16/24 02/16/24 02/16/24 Range/Units 17:40 17:48 20:48 WBC 25.2 H (4.5-11.0) X10^3/uL RBC 5.34 H (4.0-5.2) X10^6/uL Hgb 14.2 (12.0-16.0) g/dL Hct 43.9 (36-46) % MCV 82.2 (80-100) fL MCH 26.6 (26-34) PG MCHC 32.4 (30-36) % RDW 16.0 H (11.6-14.8) % Plt Count 393 (150-400) X10^3/uL Neut % (Auto) Not Reportable Lymph % (Auto) Not Reportable [place] % (Auto) Not Reportable Eos % (Auto) Not Reportable Baso % (Auto) Not Reportable Lymph # (Auto) Not Reportable [place] # (Auto) Not Reportable Baso # (Auto) Not Reportable Total Counted 100 Seg Neutrophils % 84.0 H (38-70) % Band Neutrophils % 7.0 (3-7) % Lymphocytes % (Manual) 6.0 L (25-45) % Monocytes % (Manual) 3.0 (2-11) % Neutrophils # (Manual) 72782 H (3450-3710) /uL RBC Morphology Normal morphology Sodium 134 L (137-145) mmol/L Potassium 3.5 (3.4-5.1) mmol/L Chloride 95 L (98-107) mmol/L Carbon Dioxide 27 (22-32) mmol/L BUN 15 (7-17) mg/dL Creatinine 0.85 (0.52-1.04) mg/dL Estimated GFR > 60 (>60) mL/min BUN/Creatinine Ratio 17.6 (6-22) Glucose 142 H (70-100) mg/dL Lactate 3.1 H 1.2 (0.7-2.1) mmol/L Calcium 9.1 (8.4-10.2) mg/dL Total Bilirubin 1.3 (0.2-1.3) mg/dL AST 45 H (14-36) IU/L ALT 44 H (<35) IU/L Alkaline Phosphatase 141 H (38-126) U/L Total Protein 8.3 H (6.3-8.2) g/dL Albumin 4.2 (3.5-5.0) g/dL Globulin 4.1 (1.7-4.1) g/dL Albumin/Globulin Ratio 1.0 (1.0-2.8) Procalcitonin 8.15 H (<0.5) ng/mL Ethyl Alcohol < 10 ( - 10) mg/dL Imaging Data CT left lower extremity with IV contrast: Radiologist's Impression: [address] [address] [address] Scan Report Signed Patient: Kayla Ponce MR#: [id number] : 1970 Acct:[id number] Age/Sex: 53 / F Date of Service: 02/16/24 Loc: ED Accession Number: [id number] Procedure: CT LE LT w con Ordering Provider: Jose Serra MD PROCEDURE: CT LE LT W CON INDICATIONS: leg swelling pain infection, eval for abscess TECHNIQUE: After the administration of intravenous contrast, 3 mm axial sections acquired of the lower extremity , with coronal and sagittal reformats. COMPARISON: [facility], CT, CT LE RT W CON, 12/24/2023, 8:06. FINDINGS: Image quality: Diagnostic Bones: The partially visualized pelvic ring appears intact. No acute displaced fracture of the femur. No acute displaced fracture of the tibia or fibula. The foot bones appear intact. No osseous erosions. Soft tissues: There are enlarged left inguinal and pelvic lymph nodes partially seen. Edematous fat stranding is seen throughout the left inguinal region, extending to the thigh. Moderate degree of edema is seen throughout the lower leg with skin thickening. There is no rim enhancing drainable fluid collection. Edema extends along the fascial planes in the lower leg. No definite soft tissue gas. Partially visualized intra pelvic structures are unremarkable. IMPRESSION: Diffuse soft tissue edema and inflammatory fat stranding throughout the leg, worse in the distal aspect, with skin thickening. Some edema extends along the fascial planes in the calf, without definite soft tissue gas. No rim enhancing drainable fluid collection. No definite osseous erosions. Dictated by: Emiliano Strange M.D. on 02/16/2024 at 19:30 Approved by: Emiliano Strange M.D. on 02/16/2024 at 19:34 [facility] Narrative Medical decision making narrative: 53-year-old female with history of IV drug use, last use she states 1 month ago, with 2 days duration increasing redness and pain to the left leg, without obvious injury or puncture or skin wound recalled. Screening labs were sent from triage, white blood [place] elevated 51070, lactate 3.1, procalcitonin 8 also elevated, IV fluids initiated, blood cultures requested, IV vancomycin and IV ceftriaxone ordered. Renal function/GFR adequate, CT left lower extremity with IV contrast to look for drainable fluid or abscess and/or osteomyelitis or fasciitis changes. Will add IV clindamycin. CT left lower extremity with IV contrast. No drainable fluid/abscess, no osteomyelitis changes, no foreign bodies, no subcutaneous. Does show diffuse cellulitis soft tissue changes, worse distally than proximally. See radiology report. Antibiotics initiated, we will repeat lactate after 2 L of fluid. We will contact hospitalist regarding admission. Patient is agreeable. Reassessment after fluid in antibiotic resuscitation for suspected sepsis due to lower extremity cellulitis, heart rate improved, blood pressure stable, good cap refill extremities, repeat lactate 1.2 improved. 2109, case discussed with hospitalist Dr. Bob, accepts patient for admission to inpatient Critical Care Time Critical Care Time Critical Care Time: Yes Total Critical Care Time: 35 Attestation: The high probability of a clinically significant, sudden or life threatening deterioration of the [musculoskeletal, dermatologic] system(s) required my full and direct attention, intervention and personal management. The aggregate critical care time was [35] minutes. Patient with substance abuse history, significant area most all of left lower extremity erythema rapid onset, concern for life-threatening fasciitis, or drainable fluid, or osteomyelitis, with multiple antibiotics after blood cultures, inflammatory markers for sepsis positive, fluid resuscitation, multiple parenteral antibiotics, advanced imaging of the left lower extremity to rule out drainable fluid and any subcutaneous air, necrotizing fasciitis not confirmed, coordination of care including admission for further IV antibiotics with hospitalist. This time is in addition to time spent performing reported procedures but includes the following: [x] Data Review and interpretation [x] Patient assessment and monitoring of vital signs [x] Documentation [x] Medication orders and management Discharge Plan Departure Patient Disposition: Admitted As Inpatient Clinical Impression: Cellulitis of left leg, Severe sepsis, Lesion of skin of face Admit Date/Time: 02/16/24 21:08 Admit Provider: Cas Ortega
[2024-02-16 18:12] LABS: Neutrophils Absolute Manual 22932 /uL (3000-5900); RBC Morphology Normal Morphology; Total Cells Counted 100
[2024-02-16 18:18] LABS: Procalcitonin 8.15 ng/mL (<0.5)
--- NOTE | 2024-02-16 18:34 | DI.CT.S_ITS ---
PROCEDURE: CT LE LT W CON INDICATIONS: leg swelling pain infection, eval for abscess TECHNIQUE: After the administration of intravenous contrast, 3 mm axial sections acquired of the lower extremity , with coronal and sagittal reformats. COMPARISON: [facility], CT, CT LE RT W CON, 12/24/2023, 8:06. FINDINGS: Image quality: Diagnostic Bones: The partially visualized pelvic ring appears intact. No acute displaced fracture of the femur. No acute displaced fracture of the tibia or fibula. The foot bones appear intact. No osseous erosions. Soft tissues: There are enlarged left inguinal and pelvic lymph nodes partially seen. Edematous fat stranding is seen throughout the left inguinal region, extending to the thigh. Moderate degree of edema is seen throughout the lower leg with skin thickening. There is no rim enhancing drainable fluid collection. Edema extends along the fascial planes in the lower leg. No definite soft tissue gas. Partially visualized intra pelvic structures are unremarkable. IMPRESSION: Diffuse soft tissue edema and inflammatory fat stranding throughout the leg, worse in the distal aspect, with skin thickening. Some edema extends along the fascial planes in the calf, without definite soft tissue gas. No rim enhancing drainable fluid collection. No definite osseous erosions. Dictated by: Emiliano Strange M.D. on 02/16/2024 at 19:30 Approved by: Emiliano Strange M.D. on 02/16/2024 at 19:34
[2024-02-16] MEDS: cefTRIAXone 1,000 MG in SODIUM CHLORIDE 0.9% 100 ML 200 MG IV (18:35)
[2024-02-16] MEDS: SODIUM CHLORIDE 0.9% 500 ML 1000 ML IV (18:41)
[2024-02-16] MEDS: SODIUM CHLORIDE 0.9% 1,000 ML 1000 ML IV (18:41)
--- NOTE | 2024-02-16 18:42 | PC.NURSE ---
Addendum entered by Monica Vega R.N. 02/16/24 19:18: time previously stated as 1730 for IV insertion and obtained 2nd blood culture should have said 1830. Original Note: Attempts to obtain 2nd set of blood cultures were unsuccessful at this time by label machine operator. I spoke with Dr. Serra who reccommended starting a second ultrasound guided IV for the antibiotics and for the second set of cultures. I did this at 1730, antibiotics were administered immediately following second set of blood cultures being obtained.
[2024-02-16 19:06] LABS: Ethanol (ETOH) < 10 mg/dL
[2024-02-16 19:24] LABS: Reflexed Lactate in 2 Hours Y
[2024-02-16] MEDS: VANCOMYCIN 1,500 MG/300 ML PIGGYBACK 200 MG IV (19:26)
[2024-02-16] MEDS: ACETAMINOPHEN 325 MG TABLET 975 MG PO (19:28)
--- NOTE | 2024-02-16 19:45 | PC.NURSE ---
1735. Lab techs called at this time to try to come and get 2nd set of Blood Cultures.
--- NOTE | 2024-02-16 19:49 | PC.NURSE ---
Patient's friend and emergency contact Isabell Holland at bedside. This is the number to call for the ride home: [phone]
[2024-02-16] MEDS: CLINDAMYCIN 900 MG/50 ML PIGGYBACK 50 MG IV (21:03)
[2024-02-16 21:04] LABS: Lactate 2HR (Lactic Acid Rflx) 1.2 mmol/L (0.7-2.1)
--- NOTE | 2024-02-16 21:30 | PC.NURSE ---
Report given to Black SHELTON.
--- NOTE | 2024-02-16 22:00 | PC.NURSE ---
Pt had syringes in purse..stated i don't know if any drugs are in purse, but i have a few syringes. Opened purse and saw syringes, did not go through purse. Placed the purse in a plastic bag to give to Arleth Camilo RN. Check book, painting instructor, cigarettes and purse locked in large locker in coord office. Both Rn verified. Instructed to pt that we cannot keep those at bedside per pt safety and hospital policy and instructed pt can get the items back when discharged. Pt agreeable and cooperative.
[2024-02-16 22:24] LABS: Ur Creatinine Normal (Normal); Ur Specific Gravity Normal (Normal); Urine Tetrahydrocannabinol Negative (Negative); Urine pH Normal (Normal)
[2024-02-16 22:25] LABS: UR Morphine/Opiate cutoff 300 Positive (Negative); Urine Amphetamines Positive (Negative); Urine Cocaine Positive (Negative); Urine MDMA Negative (Negative); Urine Methamphetamines Positive (Negative); Urine Phencyclidine Negative (Negative)
[2024-02-16 22:26] LABS: Urine Barbiturates Negative (Negative); Urine Benzodiazepines Negative (Negative); Urine Oxycodone Negative (Negative); Urine Tricyclic Antidepressant Negative (Negative)
[2024-02-16 22:27] LABS: Urine Methadone Negative (Negative)
--- NOTE | 2024-02-17 01:30 | PC.NURSE ---
Pt asleep in bed, found two small bags of white substance in pt bed. Brought both bags to coordinator and both RNs locked it up in the coordinator office in the large locker with the rest of pt belongings.
--- NOTE | 2024-02-17 01:41 | P.HP_ITS ---
History of Present Illness History of Present Illness Date Patient Seen: 02/17/24 Time Patient Seen: 01:41 Chief complaint: lft leg swelling and px Narrative: The pt presents to the ER with redness and swelling in the left leg that has been steadily getting worse over the past 2 days. She was admitted 2 months ago for the right leg having cellulitis. ER staff report that she continues to use Fentanyl and suspect that she is injecting in the Right leg. The pt denies any fevers, chills, SOB, dyspnea N/V, and is able to walk on the affected leg, there has been no injury to the leg, no bites, scratches. [facility] Social History household members: significant other Smoking Status: Current every day smoker alcohol intake: current Meds Home Medications and Allergies Home Medications Medication Instructions Recorded Confirmed Type No Known Home Medications 02/16/24 02/16/24 History Allergies Allergy/AdvReac Type Severity Reaction Status Date / Time No Known Drug Allergies Allergy Verified 12/24/23 06:40 Exam Vital Signs (past 8 hours): - 02/16/24 19:02 02/16/24 19:15 02/16/24 19:15 Temperature Pulse Rate 108 H 107 H Respiratory Rate 26 H Blood Pressure 168/72 H Pulse Oximetry 94 Oxygen Flow Rate 02/16/24 19:30 02/16/24 19:30 02/16/24 20:00 Temperature Pulse Rate 112 H 106 H Respiratory Rate 24 29 H Blood Pressure 166/77 H Pulse Oximetry 94 97 Oxygen Flow Rate 02/16/24 20:00 02/16/24 21:41 Temperature 97.2 F L Pulse Rate 120 H Respiratory Rate 14 Blood Pressure 169/78 H 137/60 Pulse Oximetry 94 Oxygen Flow Rate 0 Oxygen Delivery Method Room Air Oxygen Flow Rate 0 Const General: cooperative and comfortable Resp Auscultation: clear to auscultation bilaterally Cardio Rate: regular rate Rhythm: regular rhythm Extrem Other: RLE very edematous with confluent erythema, no bullous lesion, no active drainage or bleeding. Objective Labs 02/16/24 17:40 02/16/24 17:40 Labs: Laboratory Results - last 24 hr 02/16/24 02/16/24 02/16/24 17:40 17:48 20:48 WBC 25.2 H RBC 5.34 H Hgb 14.2 Hct 43.9 MCV 82.2 MCH 26.6 MCHC 32.4 RDW 16.0 H Plt Count 393 Neut % (Auto) Not Reportable Lymph % (Auto) Not Reportable [place] % (Auto) Not Reportable Eos % (Auto) Not Reportable Baso % (Auto) Not Reportable Lymph # (Auto) Not Reportable [place] # (Auto) Not Reportable Baso # (Auto) Not Reportable Total Counted 100 Seg Neutrophils % 84.0 H Band Neutrophils % 7.0 Lymphocytes % (Manual) 6.0 L Monocytes % (Manual) 3.0 Neutrophils # (Manual) 67944 H RBC Morphology Normal morphology Sodium 134 L Potassium 3.5 Chloride 95 L Carbon Dioxide 27 BUN 15 Creatinine 0.85 Estimated GFR > 60 BUN/Creatinine Ratio 17.6 Glucose 142 H Lactate 3.1 H 1.2 Calcium 9.1 Total Bilirubin 1.3 AST 45 H ALT 44 H Alkaline Phosphatase 141 H Total Protein 8.3 H Albumin 4.2 Globulin 4.1 Albumin/Globulin Ratio 1.0 Procalcitonin 8.15 H U Opiates 300ng/mL cut Ur Oxycodone Screen Urine Methadone Screen Ur Barbiturates Screen U Tricyclic Antidepress Ur Phencyclidine Scrn Ur Amphetamines Screen U Methamphetamines Scrn Ur MDMA Scrn (Ecstasy) U Benzodiazepines Scrn Urine Cocaine Screen U Marijuana (THC) Screen Urine pH Urine Specific [place] Ethyl Alcohol < 10 Ur Creatinine 02/16/24 22:05 WBC RBC Hgb Hct MCV MCH MCHC RDW Plt Count Neut % (Auto) Lymph % (Auto) [place] % (Auto) Eos % (Auto) Baso % (Auto) Lymph # (Auto) [place] # (Auto) Baso # (Auto) Total Counted Seg Neutrophils % Band Neutrophils % Lymphocytes % (Manual) Monocytes % (Manual) Neutrophils # (Manual) RBC Morphology Sodium Potassium Chloride Carbon Dioxide BUN Creatinine Estimated GFR BUN/Creatinine Ratio Glucose Lactate Calcium Total Bilirubin AST ALT Alkaline Phosphatase Total Protein Albumin Globulin Albumin/Globulin Ratio Procalcitonin U Opiates 300ng/mL cut Positive H Ur Oxycodone Screen Negative Urine Methadone Screen Negative Ur Barbiturates Screen Negative U Tricyclic Antidepress Negative Ur Phencyclidine Scrn Negative Ur Amphetamines Screen Positive H U Methamphetamines Scrn Positive H Ur MDMA Scrn (Ecstasy) Negative U Benzodiazepines Scrn Negative Urine Cocaine Screen Positive H U Marijuana (THC) Screen Negative Urine pH Normal Urine Specific [place] Normal Ethyl Alcohol Ur Creatinine Normal Assessment & Plan Assessment & Plan narrative: Sepsis due to cellulitis of the LLE- the pt was given sepsis bolus of lfuids in the ER. I have discuss the pt's symptoms and labs withthe ER provider and agree with the decision for admission. Shared decision making was had. Will start the pt on vanco and zosyn ( was given rocpehin in ER), recheck labs in AM, I have reviewed the labs, with the WBC of 25, hgb of 14, LA of 3.1, UDS positive for fent & meth. POlysubstance abuse- monitor for withdrawl, Time-Based Coding :: [TOTAL MINUTES] spent with patient and on the chart (including review of chart, obtaining history, exam, reviewing outside data, placing orders, documenting exam and treatment plan, and counseling patient) on [DATE].
[2024-02-17] MEDS: SODIUM CHLORIDE 0.45% 1,000 ML 100 ML IV ×2 (02:09→13:37)
[2024-02-17] MEDS: PIPERACILLIN/TAZO 4.5 GM in SODIUM CHLORIDE 0.9% 100 ML IV (02:33)
[2024-02-17 04:53] VITALS: BP 97/49; PULSE 87; RESP 14; TEMP 36.2; O2SAT 90
[2024-02-17 05:05] LABS: BUN Creatinine Ratio 23.1 (6-22); Blood Urea Nitrogen 15 mg/dL (7-17); Calcium 7.9 mg/dL (8.4-10.2); Carbon Dioxide 28 mmol/L (22-32); Chloride 103 mmol/L (98-107); Estimated Glomerular Filt Rate > 60 mL/min (>60); Glucose 121 mg/dL (70-100); Sodium 134 mmol/L (137-145)
[2024-02-17 05:14] LABS: HEMOLYSIS 105 (0-50); Potassium 3.7 mmol/L (3.4-5.1)
[2024-02-17 05:32] LABS: Add Manual Diff / Slide Review NO; Basophils Absolute Auto 100 /uL (0-100); Basophils Percent Auto 0.4 % (0-2); Eosinophils Absolute Auto 0 /uL (0-450); Eosinophils Percent Auto 0.1 % (2-4); Hematocrit 36.8 % (36-46); Lymphocytes Absolute Auto 800 /uL (1100-4500); Lymphocytes Percent Auto 3.9 % (25-40); Mean Corpuscular HGB Conc 32.6 % (30-36); Mean Corpuscular Hemoglobin 26.7 PG (26-34); Mean Corpuscular Volume 81.9 fL (80-100); Monocytes Absolute Auto 900 /uL (0-900); Monocytes Percent Auto 4.6 % (3-14); Neutrophils Absolute Auto 18100 /uL (1500-7000); Platelet Count 314 X10^3/uL (150-400); Red Blood Cell Count 4.49 X10^6/uL (4.0-5.2); Red Cell Distribution Width 16.5 % (11.6-14.8); White Blood Cell Count 19.8 X10^3/uL (4.5-11.0)
[2024-02-17 05:33] LABS: NT-proBNP (BNP-Adult 18+) 1820 pg/mL (<125)
[2024-02-17] MEDS: PIPERACILLIN/TAZO 3.375 GM in SODIUM CHLORIDE 0.9% 100 ML IV ×3 (06:35→22:00)
[2024-02-17] MEDS: PANTOPRAZOLE DR 20 MG TABLET PO (06:35)
--- NOTE | 2024-02-17 07:54 | PM.PN.1 ---
Subjective Subjective Date Patient Seen: 02/17/24 Interval history: She is seen in her room here today. The blood pressure is 97/49 and room air saturation is 90%. The white blood count is 19.8 with a hemoglobin of 12.0. The BMP is normal. The AST is 45 and the ALT is 44. Her urine drug screen is positive for methamphetamines, cocaine and opioids. The BNP is 1820 and the procalcitonin is 8.15. Exam Vital Signs (past 8 hours): - 02/17/24 04:53 Temperature 97.1 F L Pulse Rate 87 Respiratory Rate 14 Blood Pressure 97/49 L Pulse Oximetry 90 L Oxygen Flow Rate 0 Oxygen Delivery Method Room Air Oxygen Flow Rate 0 Narrative Exam Narrative: Alert and oriented x3. No apparent distress. Left leg is swollen from the foot to the thigh with patches of redness in areas of prior bruising. She is excessively tender to touch consistent with either dysesthesia from opioids or pain from cellulitis. Right leg has no edema or redness but there are significant old bruises. Heart is regular rate and rhythm without murmur Lungs are clear to auscultation bilaterally She has extensive skin scarring from skin-popping infections on the upper arms. Objective Labs 02/17/24 04:41 02/17/24 04:41 Labs: Laboratory Results - last 24 hr 02/16/24 02/16/24 02/16/24 17:40 17:48 20:48 WBC 25.2 H RBC 5.34 H Hgb 14.2 Hct 43.9 MCV 82.2 MCH 26.6 MCHC 32.4 RDW 16.0 H Plt Count 393 Neut % (Auto) Not Reportable Lymph % (Auto) Not Reportable [place] % (Auto) Not Reportable Eos % (Auto) Not Reportable Baso % (Auto) Not Reportable Neut # (Auto) Lymph # (Auto) Not Reportable [place] # (Auto) Not Reportable Eos # (Auto) Baso # (Auto) Not Reportable Total Counted 100 Seg Neutrophils % 84.0 H Band Neutrophils % 7.0 Lymphocytes % (Manual) 6.0 L Monocytes % (Manual) 3.0 Neutrophils # (Manual) 09134 H RBC Morphology Normal morphology Sodium 134 L Potassium 3.5 Chloride 95 L Carbon Dioxide 27 BUN 15 Creatinine 0.85 Estimated GFR > 60 BUN/Creatinine Ratio 17.6 Glucose 142 H Lactate 3.1 H 1.2 Calcium 9.1 Total Bilirubin 1.3 AST 45 H ALT 44 H Alkaline Phosphatase 141 H NT-Pro-B Natriuret Pep Total Protein 8.3 H Albumin 4.2 Globulin 4.1 Albumin/Globulin Ratio 1.0 Procalcitonin 8.15 H U Opiates 300ng/mL cut Ur Oxycodone Screen Urine Methadone Screen Ur Barbiturates Screen U Tricyclic Antidepress Ur Phencyclidine Scrn Ur Amphetamines Screen U Methamphetamines Scrn Ur MDMA Scrn (Ecstasy) U Benzodiazepines Scrn Urine Cocaine Screen U Marijuana (THC) Screen Urine pH Urine Specific [place] Ethyl Alcohol < 10 Ur Creatinine 02/16/24 02/17/24 22:05 04:41 WBC 19.8 H RBC 4.49 Hgb 12.0 Hct 36.8 MCV 81.9 MCH 26.7 MCHC 32.6 RDW 16.5 H Plt Count 314 Neut % (Auto) 91.0 H Lymph % (Auto) 3.9 L [place] % (Auto) 4.6 Eos % (Auto) 0.1 L Baso % (Auto) 0.4 Neut # (Auto) 94790 H Lymph # (Auto) 800 L [place] # (Auto) 900 Eos # (Auto) 0 Baso # (Auto) 100 Total Counted Seg Neutrophils % Band Neutrophils % Lymphocytes % (Manual) Monocytes % (Manual) Neutrophils # (Manual) RBC Morphology Sodium 134 L Potassium 3.7 Chloride 103 Carbon Dioxide 28 BUN 15 Creatinine 0.65 Estimated GFR > 60 BUN/Creatinine Ratio 23.1 H Glucose 121 H Lactate Calcium 7.9 L Total Bilirubin AST ALT Alkaline Phosphatase NT-Pro-B Natriuret Pep 1820 H Total Protein Albumin Globulin Albumin/Globulin Ratio Procalcitonin U Opiates 300ng/mL cut Positive H Ur Oxycodone Screen Negative Urine Methadone Screen Negative Ur Barbiturates Screen Negative U Tricyclic Antidepress Negative Ur Phencyclidine Scrn Negative Ur Amphetamines Screen Positive H U Methamphetamines Scrn Positive H Ur MDMA Scrn (Ecstasy) Negative U Benzodiazepines Scrn Negative Urine Cocaine Screen Positive H U Marijuana (THC) Screen Negative Urine pH Normal Urine Specific [place] Normal Ethyl Alcohol Ur Creatinine Normal PFSH Social History household members: spouse Smoking Status: Current every day smoker alcohol intake: current Assessment & Plan Assessment & Plan narrative: Sepsis due to cellulitis of the LLE -the pt was given sepsis bolus of fluids in the ED. -Continue vanco and zosyn ( was given Rocephin in ER), recheck labs in AM, I have reviewed the labs, with the WBC of 25, hgb of 14, LA of 3.1, UDS positive for opiates, cocaine and meth. -patient apparently was found to be using illicit substances in the bathroom of the ED. -patient reportedly left Against Medical Advice during a prior admission for similar conditions. Polysubstance abuse- monitor for withdrawal, Time-Based Coding :: [TOTAL MINUTES] spent with patient and on the chart (including review of chart, obtaining history, exam, reviewing outside data, placing orders, documenting exam and treatment plan, and counseling patient) on [DATE].
[2024-02-17 08:00] VITALS: BP 109/53; PULSE 98; RESP 18; TEMP 36.4; O2SAT 92
--- NOTE | 2024-02-17 08:22 | PC.NURSE ---
Pt arousable, not overly conversant. Allows assessment falling easily back to sleep. Continue to monitor.
[2024-02-17] MEDS: VANCOMYCIN 1,000 MG in DEXTROSE 5% IN WATER 250 ML 250 MG IV ×2 (08:51→15:16)
[2024-02-17] MEDS: ENOXAPARIN 40 MG/0.4 ML SYRINGE SUBCUT (10:24)
--- NOTE | 2024-02-17 10:50 | CM.DANOTE ---
Patient is a 53 yo female who was admitted INPT status on 02/16/24 for Cellulitis/Sepsis. Pt has [employer] and [employer] for insurance and her PCP is not listed. EMR was reviewed. Per , pt with hx of Right Leg Cellulitis in Dec 2023 and now admitted for Left leg cellulitis and need for IV-Abx. Pt's UDS+ cocaine, opiates, meth, amphetamines and admitted to using the the bathroom outside of the ED at admission and powder substance found in pt's belongings along with syringes and were placed in locked safe. SW met bedside with pt who is drowsy and groggy and explained role and pt able to confirm she lives in mobile home with her spouse, who she states uses Heroine, and has early signs of dementia after a recent overdose and hospitalization. Patient states she gets rides from friends and does not have a vehicle or drive and is not currently working. Pt utilized Medicaid transport to get home after her last discharge from the hospital and [facility] [place]. Pt was provided with a list of [facility] resources when she discharged in Dec 2023 for similar and SW inquired if pt enrolled in any supportive services or [facility] and pt states she did not follow through with that in December and currently is not sure she is interested in [facility] tx at this time but will consider during her admission here. Plan: SW to follow closely for pt's progress and confirm she can ambulate independently for likely plan of discharge home via Medicaid Taxi and determine if pt interested in [facility] tx at this time. MANUEL Melo Discharge Planning/Care Management CM Discharge Assessment Start: 02/17/24 10:48 Freq: Status: Active Protocol: Document 02/17/24 10:48 BF (Rec: 02/17/24 10:50 BF [id number]) Discharge Planning Assessment Assigned Power Manager MANUEL Casillas DPOA/Assigned Designee Name none Advance Directives? No Advance Directives on File No History Provided By Patient,Medical Record Has Patient been admitted in last 30 No days? Comment Recently admitted in Dec 2023 couple months ago for similar, discharged home via Medicaid taxi and [facility] resources Prior Living Arrangements Mobile home Household Members spouse Type of transporation used prior to Medicaid Transport admit Comment Relies on others or Medicaid transport Independent with ADL's Yes Is patient alert and oriented? Yes Caregiver for Another No Patient/Family Preference Drug/Alcohol Rehab Barriers to Discharge No Discharge Plan Home Transportation Arrangement Medicaid transport Referrals Initiated Other Additional Comment Pt was previously given [facility] resources, pt currently unsure if she is interested in [facility] tx at this time. Will continue to consider Whiteboard Updated in Patient Room with Yes name and ext. # of Power Manager Review Status In Process Please Provide Date Initial DC 02/17/24 Assessment Was Performed Next Review Type Continued Stay Review
[2024-02-17 12:00] VITALS: BP 116/55; PULSE 99; RESP 18; TEMP 36.6; O2SAT 93
[2024-02-17 13:00] VITALS: BP 116/55; PULSE 99; RESP 18; TEMP 36.3; O2SAT 93
[2024-02-17 16:00] VITALS: BP 101/61; PULSE 98; RESP 18; TEMP 36.1; O2SAT 92
[2024-02-17] MEDS: ACETAMINOPHEN 325 MG TABLET 650 MG PO (18:53)
[2024-02-17 20:00] VITALS: BP 102/60; PULSE 95; RESP 18; TEMP 36.6; O2SAT 91
[2024-02-17] MEDS: HYDROCODONE/ACET 5/325 TABLET 2 TAB PO (21:55)
[2024-02-18] MEDS: SODIUM CHLORIDE 0.45% 1,000 ML 100 ML IV ×2 (01:37→12:11)
[2024-02-18 02:00] VITALS: BP 95/59; PULSE 62; RESP 20; TEMP 36.4; O2SAT 97
[2024-02-18] MEDS: VANCOMYCIN 1,000 MG in DEXTROSE 5% IN WATER 250 ML 250 MG IV ×2 (02:16→10:30)
[2024-02-18] MEDS: PANTOPRAZOLE DR 20 MG TABLET PO (06:10)
[2024-02-18] MEDS: PIPERACILLIN/TAZO 3.375 GM in SODIUM CHLORIDE 0.9% 100 ML IV ×2 (06:10→15:29)
[2024-02-18] MEDS: ACETAMINOPHEN 325 MG TABLET 650 MG PO (06:12)
[2024-02-18 08:00] VITALS: BP 97/47; PULSE 91; RESP 18; TEMP 36.2; O2SAT 92
--- NOTE | 2024-02-18 08:29 | PM.PN.1 ---
Subjective Subjective Date Patient Seen: 02/18/24 Interval history: She is seen in her room here today. The blood pressure is 97/47. The white blood count will be rechecked tomorrow. There appears to be more wrinkling of the skin on the left leg consistent with slowly improving edema. The same redness is present. She continues on vancomycin and Zosyn. She asks for more than the prescribed hydrocodone for pain which I declined to change given her opioid dependency. Exam Vital Signs (past 8 hours): - 02/18/24 02:00 02/18/24 08:00 Temperature 97.6 F 97.1 F L Pulse Rate 62 91 H Respiratory Rate 20 18 Blood Pressure 95/59 L 97/47 L Pulse Oximetry 97 92 Oxygen Flow Rate 0 0 Oxygen Delivery Method Room Air Oxygen Flow Rate 0 Narrative Exam Narrative: Alert and oriented x3. No apparent distress. Heart is regular rate and rhythm without murmur Lungs are clear to auscultation bilaterally Extremities have no edema on the right leg. The left leg is mildly swollen from the foot to the thigh. The areas of redness are patchy and unchanged from yesterday. Objective Labs 02/17/24 04:41 02/17/24 04:41 [facility] Medical History (Updated 02/18/24 @ 12:52 by Yash Palmer MD) Polysubstance dependence Social History household members: spouse Smoking Status: Current every day smoker alcohol intake: current Assessment & Plan Assessment & Plan narrative: Sepsis due to cellulitis of the LLE -Fluid bolus on admission -Continue vanco and zosyn ( was given Rocephin in ER), recheck labs in AM, I have reviewed the labs, with the WBC of 25, hgb of 14, LA of 3.1, UDS positive for opiates, cocaine and meth. -repeat CBC on 02/18 -patient apparently was found to be using illicit substances in the bathroom of the ED. -patient reportedly left Against Medical Advice during a prior admission for similar conditions. Polysubstance abuse- monitor for withdrawal -Continue prn hydrocodone 2 tabs q4h. Lovenox for DVT prevention Time-Based Coding :: [TOTAL MINUTES] spent with patient and on the chart (including review of chart, obtaining history, exam, reviewing outside data, placing orders, documenting exam and treatment plan, and counseling patient) on [DATE].
[2024-02-18] MEDS: HYDROCODONE/ACET 5/325 TABLET 2 TAB PO ×2 (08:55→19:56)
[2024-02-18] MEDS: ENOXAPARIN 40 MG/0.4 ML SYRINGE SUBCUT (08:56)
[2024-02-18] MEDS: IBUPROFEN 600 MG TABLET PO (08:56)
[2024-02-18] MEDS: VANCOMYCIN TROUGH 1 REQUEST MISC (10:05)
[2024-02-18 10:22] LABS: Vancomycin Trough 10.1 ug/mL (10-20)
[2024-02-18 14:00] VITALS: BP 100/50; PULSE 72; RESP 18; TEMP 36.4; O2SAT 97
--- NOTE | 2024-02-18 14:38 | EKG_ITS ---
[facility] [address] [place] [address] Test Date: 2024-02-19 Pat Name: Kayla Ponce Department: [facility] Room: 222 Gender: Female Learning And Development Assistant: LEXII : 1970 Requested By: Order Number: [id number] Reading MD: Jose Luis Hicks Measurements Intervals [place] Rate: 80 P: 81 CT: 154 QRS: 66 QRSD: 92 T: 87 QT: 434 QTc: 500 Interpretive Statements Normal sinus rhythm ST & T wave abnormality, consider lateral ischemia Prolonged QT Electronically Signed On 02-20-2024 19:42:36 PST by Jose Luis Hicks
[2024-02-18] MEDS: METHADONE 10 MG TABLET PO ×2 (15:29→21:32)
[2024-02-18] MEDS: VANCOMYCIN 1,250 MG/250 ML PIGGYBACK 250 MG IV (17:18)
[2024-02-18 19:00] VITALS: BP 108/56; PULSE 76; RESP 18; TEMP 36.3; O2SAT 96
[2024-02-19] MEDS: PIPERACILLIN/TAZO 3.375 GM in SODIUM CHLORIDE 0.9% 100 ML IV ×4 (00:01→22:13)
[2024-02-19] MEDS: NICOTINE 21 MG PATCH TOP ×2 (00:40→08:18)
[2024-02-19] MEDS: VANCOMYCIN 1,250 MG/250 ML PIGGYBACK 250 MG IV ×3 (00:40→17:56)
[2024-02-19 02:00] VITALS: BP 109/61; PULSE 76; RESP 20; TEMP 36.3; O2SAT 95
[2024-02-19] MEDS: PANTOPRAZOLE DR 20 MG TABLET PO (06:11)
[2024-02-19] MEDS: HYDROCODONE/ACET 5/325 TABLET 2 TAB PO (06:13)
[2024-02-19] MEDS: ENOXAPARIN 40 MG/0.4 ML SYRINGE SUBCUT (08:18)
[2024-02-19] MEDS: METHADONE 10 MG TABLET 20 MG PO ×2 (08:18→21:09)
[2024-02-19] MEDS: IBUPROFEN 600 MG TABLET PO (08:19)
[2024-02-19 12:00] VITALS: BP 111/57; PULSE 82; RESP 16; TEMP 36; O2SAT 97
--- NOTE | 2024-02-19 13:58 | PC.NURSE ---
Site Acquisition Manager this morning states she was unable to draw labs due to scar tissues and difficulty finding a vein, 2nd infertility medical assistant came up to try to draw labs and states she was able to find vein but then patient refused lab draws. Dr. Hicks notified.
--- NOTE | 2024-02-19 15:12 | CM.DPC ---
DCP Cont: Per MD, pt's cellulitis slightly improved but still red and painful and pt not yet stable for discharge home today. SW met bedside with pt and explained role again and pt sleepy and clearly not feeling well, sweaty and no clothing on under sheet, and likely some withdrawals. Pt confirms she is not feeling well enough to discuss if she is interested in any [facility] resources or other community resources at this time. Plan: SW to follow for plan of likely discharge home via Medicaid Taxi when medically stable and to confirm pt not needing any further community resources at d/c. MANUEL Melo
[2024-02-19] MEDS: LORazepam 1 MG TABLET PO (15:38)
[2024-02-19] MEDS: GABAPENTIN 300 MG CAPSULE PO ×2 (15:38→21:09)
--- NOTE | 2024-02-19 15:51 | PM.PN.1 ---
Subjective Subjective Interval history: 53 F admitted with L leg cellulitis. Still fairly severe pain, worse with ambulation. [place] is not doing much for her. This morning she was sweaty and anxious, improved with some methadone, which was increased this morning now much improved. Exam Vital Signs (past 8 hours): - 02/19/24 08:00 Oxygen Delivery Method Room Air Oxygen Delivery Method Room Air Oxygen Flow Rate 0 Narrative Exam Narrative: Alert and oriented x3. No apparent distress. Heart is regular rate and rhythm without murmur Lungs are clear to auscultation bilaterally Extremities have no edema on the right leg. The left leg is mildly swollen from the foot to the thigh. Circumferential erythema, warmth and tenderness to the left leg. Objective Labs 02/17/24 04:41 02/17/24 04:41 [facility] Medical History (Updated 02/18/24 @ 12:52 by Yash Palmer MD) Polysubstance dependence Social History household members: spouse Smoking Status: Current every day smoker alcohol intake: current Assessment & Plan Assessment & Plan narrative: Sepsis due to cellulitis of the LLE with hypotension and hyperbilirubinemia. -Fluid bolus on admission -Continue vanco and zosyn ( was given Rocephin in ER), recheck labs in AM, I have reviewed the labs, with the WBC of 25, hgb of 14, LA of 3.1, UDS positive for opiates, cocaine and meth. -patient apparently was found to be using illicit substances in the bathroom of the ED. -patient reportedly left Against Medical Advice during a prior admission for similar conditions. -pain control as noted below -No abscess on CT imaging, rule out DVT with US ordered today. -SOFA score of 2 Polysubstance abuse with opiate withdrawal -started methadone, had to increase dose today, continue current methadone dose 20 mg BID and follow up with outpatient methadone clinic. -oxycodone 5-10 mg prn with IV dilaudid for breakthrough -gabapentin 300 mg TID, tylenol as needed as well Lovenox for DVT prevention Code: Full Dispo: likely discharge home, timing in likely 2-3 more days. Time-Based Coding :: [TOTAL MINUTES] spent with patient and on the chart (including review of chart, obtaining history, exam, reviewing outside data, placing orders, documenting exam and treatment plan, and counseling patient) on [DATE].
--- NOTE | 2024-02-19 16:00 | DI.US.S_ITS ---
PROCEDURE: US PERIPH VENOUS LOW EXTREM LT INDICATIONS: Please evaluate for DVT TECHNIQUE: Real-time imaging, as well as color and pulse Doppler interrogation, were performed of the lower extremity deep veins from the inguinal ligament to the popliteal fossa, with documentation of the visualized calf veins. COMPARISON: None. FINDINGS: The common femoral, femoral, popliteal, and the visualized calf veins are normally compressible, and free of intraluminal thrombus. Color and pulse Doppler demonstrate normal phasic intraluminal flow. There is normal augmentation response to distal compression maneuver. Prominent groin lymph nodes are seen. IMPRESSION: No findings of lower extremity deep venous thrombosis. Dictated by: Blane Reynolds M.D. on 02/19/2024 at 16:50 Approved by: Blane Reynolds M.D. on 02/19/2024 at 16:52
--- NOTE | 2024-02-19 16:58 | PC.NURSE ---
Patient agrees to let lab attempt draw again, will continue to monitor.
[2024-02-19 17:11] LABS: Add Manual Diff / Slide Review NO; Basophils Absolute Auto 0 /uL (0-100); Basophils Percent Auto 0.2 % (0-2); Eosinophils Absolute Auto 100 /uL (0-450); Eosinophils Percent Auto 0.4 % (2-4); Hematocrit 43.7 % (36-46); Hemoglobin 14.2 g/dL (12.0-16.0); Lymphocytes Absolute Auto 1200 /uL (1100-4500); Lymphocytes Percent Auto 6.4 % (25-40); Mean Corpuscular HGB Conc 32.5 % (30-36); Mean Corpuscular Hemoglobin 26.5 PG (26-34); Mean Corpuscular Volume 81.5 fL (80-100); Monocytes Absolute Auto 1100 /uL (0-900); Monocytes Percent Auto 5.8 % (3-14); Neutrophils Absolute Auto 15900 /uL (1500-7000); Neutrophils Percent Auto 87.2 % (50-75); Platelet Count 364 X10^3/uL (150-400); Red Blood Cell Count 5.35 X10^6/uL (4.0-5.2); Red Cell Distribution Width 16.9 % (11.6-14.8); White Blood Cell Count 18.2 X10^3/uL (4.5-11.0)
[2024-02-19 17:25] LABS: Estimated Glomerular Filt Rate > 60 mL/min (>60)
[2024-02-19 17:38] LABS: Vancomycin Trough 17.5 ug/mL (10-20)
[2024-02-19] MEDS: VANCOMYCIN TROUGH 1 REQUEST MISC (17:56)
[2024-02-19 18:03] VITALS: BP 136/68; PULSE 88; RESP 21; TEMP 36.3; O2SAT 97
[2024-02-19 20:00] VITALS: BP 128/68; PULSE 92; RESP 18; TEMP 36.6; O2SAT 99
[2024-02-20] MEDS: VANCOMYCIN 1,250 MG/250 ML PIGGYBACK 250 MG IV ×3 (01:07→16:52)
[2024-02-20 02:00] VITALS: BP 135/75; PULSE 97; RESP 19; TEMP 35.9; O2SAT 96
[2024-02-20] MEDS: PIPERACILLIN/TAZO 3.375 GM in SODIUM CHLORIDE 0.9% 100 ML IV ×3 (06:14→23:30)
[2024-02-20] MEDS: PANTOPRAZOLE DR 20 MG TABLET PO (06:14)
[2024-02-20 08:00] VITALS: BP 135/73; PULSE 55; RESP 18; TEMP 36.3; O2SAT 95
[2024-02-20] MEDS: GABAPENTIN 300 MG CAPSULE PO ×3 (08:17→20:16)
[2024-02-20] MEDS: ENOXAPARIN 40 MG/0.4 ML SYRINGE SUBCUT (08:17)
[2024-02-20] MEDS: NICOTINE 21 MG PATCH TOP (08:17)
[2024-02-20] MEDS: METHADONE 10 MG TABLET 20 MG PO (08:17)
[2024-02-20 08:31] VITALS: BP 130/76; PULSE 91; RESP 16; TEMP 36.2; O2SAT 97
[2024-02-20 11:13] LABS: Add Manual Diff / Slide Review NO; Basophils Absolute Auto 0 /uL (0-100); Basophils Percent Auto 0.1 % (0-2); Eosinophils Absolute Auto 0 /uL (0-450); Eosinophils Percent Auto 0.2 % (2-4); Hematocrit 38.3 % (36-46); Hemoglobin 12.5 g/dL (12.0-16.0); Lymphocytes Absolute Auto 1400 /uL (1100-4500); Lymphocytes Percent Auto 7.8 % (25-40); Mean Corpuscular HGB Conc 32.5 % (30-36); Mean Corpuscular Hemoglobin 26.5 PG (26-34); Mean Corpuscular Volume 81.5 fL (80-100); Monocytes Absolute Auto 1100 /uL (0-900); Monocytes Percent Auto 6.2 % (3-14); Neutrophils Absolute Auto 15700 /uL (1500-7000); Neutrophils Percent Auto 85.7 % (50-75); Platelet Count 459 X10^3/uL (150-400); Red Blood Cell Count 4.71 X10^6/uL (4.0-5.2); Red Cell Distribution Width 16.6 % (11.6-14.8); White Blood Cell Count 18.4 X10^3/uL (4.5-11.0)
[2024-02-20 11:58] LABS: Alanine Aminotransferase 22 IU/L (<35); Albumin 2.5 g/dL (3.5-5.0); Albumin Globulin Ratio 0.8 (1.0-2.8); Alkaline Phosphatase 243 U/L (38-126); Aspartate Aminotransferase 33 IU/L (14-36); BUN Creatinine Ratio 13.5 (6-22); Bilirubin Total 0.4 mg/dL (0.2-1.3); Blood Urea Nitrogen 7 mg/dL (7-17); Calcium 8.1 mg/dL (8.4-10.2); Carbon Dioxide 23 mmol/L (22-32); Chloride 107 mmol/L (98-107); Estimated Glomerular Filt Rate > 60 mL/min (>60); Glucose 96 mg/dL (70-100); HEMOLYSIS 15 (0-50); Magnesium 1.9 mg/dL (1.6-2.3); Potassium 2.9 mmol/L (3.4-5.1); Sodium 137 mmol/L (137-145); Total Protein 5.5 g/dL (6.3-8.2)
[2024-02-20] MEDS: LORazepam 1 MG TABLET PO (12:39)
[2024-02-20] MEDS: POTASSIUM CHLORIDE 20 MEQ TAB 40 MEQ PO ×2 (15:07→19:39)
[2024-02-20 16:00] VITALS: BP 129/75; PULSE 89; RESP 18; TEMP 36.6; O2SAT 98
--- NOTE | 2024-02-20 17:29 | P.PN_ITS ---
Subjective Subjective Interval history: 53 F admitted with L leg cellulitis. Improved pain but sleepy throughout the day. Exam Vital Signs (past 8 hours): Oxygen Delivery Method Room Air Oxygen Flow Rate 0 Narrative Exam Narrative: Alert and oriented x3. No apparent distress. Heart is regular rate and rhythm without murmur Lungs are clear to auscultation bilaterally Extremities have no edema on the right leg. The left leg is mildly swollen from the foot to the thigh. Circumferential erythema, warmth and tenderness to the left leg. Perhaps slight improvement today. Objective Labs 02/20/24 11:03 02/20/24 11:03 Labs: Laboratory Results - last 24 hr 02/19/24 02/20/24 16:55 11:03 WBC 18.4 H RBC 4.71 Hgb 12.5 Hct 38.3 MCV 81.5 MCH 26.5 MCHC 32.5 RDW 16.6 H Plt Count 459 H Neut % (Auto) 85.7 H Lymph % (Auto) 7.8 L [place] % (Auto) 6.2 Eos % (Auto) 0.2 L Baso % (Auto) 0.1 Neut # (Auto) 58551 H Lymph # (Auto) 1400 [place] # (Auto) 1100 H Eos # (Auto) 0 Baso # (Auto) 0 Sodium 137 Potassium 2.9 L Chloride 107 Carbon Dioxide 23 BUN 7 Creatinine 0.55 0.52 Estimated GFR > 60 > 60 BUN/Creatinine Ratio 13.5 Glucose 96 Calcium 8.1 L Magnesium 1.9 Total Bilirubin 0.4 AST 33 ALT 22 Alkaline Phosphatase 243 H D Total Protein 5.5 L Albumin 2.5 L Globulin 3.0 Albumin/Globulin Ratio 0.8 L Vancomycin Trough 17.5 PFSH Medical History (Updated 02/18/24 @ 12:52 by Yash Palmer MD) Polysubstance dependence Social History household members: spouse Smoking Status: Current every day smoker alcohol intake: current Assessment & Plan Assessment & Plan narrative: Sepsis due to cellulitis of the LLE with hypotension and hyperbilirubinemia. -Fluid bolus on admission -Continue vanco and zosyn ( was given Rocephin in ER) -patient apparently was found to be using illicit substances in the bathroom of the ED. -patient reportedly left Against Medical Advice during a prior admission for similar conditions. -pain control as noted below -No abscess on CT imaging, rule out DVT with US ordered today. -SOFA score of 2 Polysubstance abuse with opiate withdrawal -started methadone, had to increase dose to 20 mg BID however given lethargy today will decrease back to 10. -oxycodone 5-10 mg prn with IV dilaudid for breakthrough -gabapentin 300 mg TID, tylenol as needed as well Lovenox for DVT prevention Code: Full Dispo: likely discharge home, timing in likely 2-3 more days. Time-Based Coding :: [TOTAL MINUTES] spent with patient and on the chart (including review of chart, obtaining history, exam, reviewing outside data, placing orders, documenting exam and treatment plan, and counseling patient) on [DATE].
[2024-02-20] MEDS: OXYCODONE IR 5 MG TABLET PO (19:39)
[2024-02-20] MEDS: METHADONE 10 MG TABLET PO (20:16)
[2024-02-21] VITALS: BP 118/70; PULSE 88; RESP 14; TEMP 37.6; O2SAT 95
[2024-02-21 00:28] VITALS: TEMP 37.6
[2024-02-21] MEDS: ACETAMINOPHEN 325 MG TABLET 650 MG PO ×2 (00:28→14:50)
[2024-02-21] MEDS: VANCOMYCIN 1,250 MG/250 ML PIGGYBACK 250 MG IV ×3 (00:28→17:09)
[2024-02-21 06:00] VITALS: BP 138/84; PULSE 81; RESP 18; TEMP 37.3; O2SAT 99
[2024-02-21] MEDS: PANTOPRAZOLE DR 20 MG TABLET PO (06:00)
[2024-02-21] MEDS: PIPERACILLIN/TAZO 3.375 GM in SODIUM CHLORIDE 0.9% 100 ML IV (06:00)
--- NOTE | 2024-02-21 08:20 | PM.PN.1 ---
Subjective Subjective Interval history: Summary: Patient is a 53-year-old female with left leg cellulitis and slow improvement on vancomycin and Zosyn. CT was negative for abscess, DVT study was negative. She also had complication of opiate withdrawal, as she was as fentanyl. She was on methadone 10 mg b.i.d., but was somnolent. Subjective: Her leg is improving, but is still swollen, red, and tender. She also has some nasal congestion. Exam Vital Signs (past 8 hours): - 02/21/24 00:28 02/21/24 06:00 Temperature 99.6 F 99.2 F Pulse Rate 81 Respiratory Rate 18 Blood Pressure 138/84 Pulse Oximetry 99 Oxygen Delivery Method Room Air Oxygen Flow Rate 0 Narrative Exam Narrative: NAD, alert and oriented. Fluent speech. Lungs are clear, normal rate and effort. Heart is regular, no murmur gallop or rub. Abdomen is soft, non distended. Extremities: Left leg is swollen, red, and somewhat tender. This is primarily from the knee down to the top of the foot. There is some blistering as well over the anterior tibial area. There is no fluctuance, induration, or crepitus. Objective Labs 02/20/24 11:03 02/20/24 11:03 Labs: Laboratory Results - last 24 hr 02/20/24 11:03 WBC 18.4 H RBC 4.71 Hgb 12.5 Hct 38.3 MCV 81.5 MCH 26.5 MCHC 32.5 RDW 16.6 H Plt Count 459 H Neut % (Auto) 85.7 H Lymph % (Auto) 7.8 L [place] % (Auto) 6.2 Eos % (Auto) 0.2 L Baso % (Auto) 0.1 Neut # (Auto) 03876 H Lymph # (Auto) 1400 [place] # (Auto) 1100 H Eos # (Auto) 0 Baso # (Auto) 0 Sodium 137 Potassium 2.9 L Chloride 107 Carbon Dioxide 23 BUN 7 Creatinine 0.52 Estimated GFR > 60 BUN/Creatinine Ratio 13.5 Glucose 96 Calcium 8.1 L Magnesium 1.9 Total Bilirubin 0.4 AST 33 ALT 22 Alkaline Phosphatase 243 H D Total Protein 5.5 L Albumin 2.5 L Globulin 3.0 Albumin/Globulin Ratio 0.8 L [facility] Medical History Polysubstance dependence Social History household members: spouse Smoking Status: Current every day smoker alcohol intake: current Assessment & Plan Assessment & Plan narrative: 1. Sepsis due to cellulitis of the LLE with hypotension and hyperbilirubinemia. Present on admission and improving. -Fluid bolus on admission -Continue vanco and zosyn ( was given Rocephin in ER) -patient apparently was found to be using illicit substances in the bathroom of the ED. -patient reportedly left Against Medical Advice during a prior admission for similar conditions. -pain control as noted below -No abscess on CT imaging, rule out DVT with US ordered today. -SOFA score of 2 2. Polysubstance abuse with opiate withdrawal, present on admission and active. -started methadone, had to increase dose to 20 mg BID however given lethargy today will decrease back to 10. -oxycodone 5-10 mg prn with IV dilaudid for breakthrough -gabapentin 300 mg TID, tylenol as needed as well Plan: -continue antibiotics and leg elevation. -continue methadone as ordered. She requires another night of IV antibiotics as her leg is improved but is still quite swollen, red and tender. Lovenox for DVT prevention Code: Manufacturing Lab Technician-Based Coding :: [TOTAL MINUTES] spent with patient and on the chart (including review of chart, obtaining history, exam, reviewing outside data, placing orders, documenting exam and treatment plan, and counseling patient) on [DATE].
[2024-02-21] MEDS: NICOTINE 21 MG PATCH TOP (08:56)
[2024-02-21] MEDS: OXYCODONE IR 5 MG TABLET PO ×4 (08:57→22:07)
[2024-02-21] MEDS: METHADONE 10 MG TABLET PO ×2 (08:57→21:14)
[2024-02-21] MEDS: ENOXAPARIN 40 MG/0.4 ML SYRINGE SUBCUT (08:57)
[2024-02-21] MEDS: GABAPENTIN 300 MG CAPSULE PO ×3 (08:57→21:16)
[2024-02-21] MEDS: ALBUTEROL 2.5 MG/3 ML NEB (ADULT) INH (11:05)
[2024-02-21 12:07] VITALS: BP 146/83; PULSE 89; RESP 19; TEMP 36.6; O2SAT 96
--- NOTE | 2024-02-21 14:06 | DIET.CONS ---
Dietary Consultation Note Admission Date: 02/16/2024 21:08 Assessment: 53 y F admitted for sepsis d/t cellulitis. RD screened for LOS. Attempted visit, pt sleeping soundly. EMR reviewed. PMH polysubstance abuse. PO intakes average <50% during admission. DFM reviewed for meal composition. Ht: 170.18 cm Wt: 70.307 kg BMI: 24.3 UBW: 64 kg Last BM: 02/21/24 (02/21/24 04:30) MNA: 14 [place] Score: 20 Diet: 02/17/24 Breakfast General (Regular) Diet Diet Modifications: Nutrition Percent Meal Consumed 75% 02/21/24 13:34 Percent Meal Consumed 50% 02/21/24 10:18 Percent Meal Consumed 25% 02/20/24 19:39 Percent Meal Consumed 10 02/20/24 10:07 Labs: RBC 4.71 X10^6/uL (4.0-5.2) 02/20/24 11:03 Hgb 12.5 g/dL (12.0-16.0) 02/20/24 11:03 Hct 38.3 % (36-46) 02/20/24 11:03 Creatinine 0.52 mg/dL (0.52-1.04) 02/20/24 11:03 Lactate 1.2 mmol/L (0.7-2.1) 02/16/24 20:48 NT-Pro-B Natriuret Pep 1820 pg/mL (<125) H 02/17/24 04:41 Nutrition Diagnosis: Inadequate oral intakes r/t presumed decreased appetite aeb <50% avg recorded PO intakes during admission Interventions: Trial ONS to support EER EER: [id number] kcals (22-25 kcals per kg per sepsis) 85-100 g protein (1.25-1.5 g/kg per sepsis) Monitoring/Evaluations: PO intakes, ONS tolerance Electronically Signed by: Rani Zaragoza 02/21/24 14:06 Clinical Dietitian [address] [address]
--- NOTE | 2024-02-21 14:28 | CM.DPC ---
DCP Cont: Per MD, pt on methadone for her withdrawal and leg still warm and tender and red and one more day of IV-Abx to determine if she is stable for discharge tomorrow pending progress. Plan: SW to follow up with pt closer to discharge when she is feeling better to determine if she is interested in [facility] or other community resources and likely need for Medicaid taxi if no one can transport her home. MANUEL Melo
[2024-02-21] MEDS: cefTRIAXone 1,000 MG in SODIUM CHLORIDE 0.9% 100 ML 200 MG IV (14:42)
[2024-02-21] MEDS: LORazepam 1 MG TABLET PO ×2 (18:00→22:12)
[2024-02-21 19:22] LABS: Basophils Absolute Auto 0 /uL (0-100); Basophils Percent Auto 0.3 % (0-2); Eosinophils Absolute Auto 0 /uL (0-450); Eosinophils Percent Auto 0.3 % (2-4); Hematocrit 37.8 % (36-46); Hemoglobin 12.3 g/dL (12.0-16.0); Lymphocytes Absolute Auto 1400 /uL (1100-4500); Lymphocytes Percent Auto 9.3 % (25-40); Mean Corpuscular HGB Conc 32.7 % (30-36); Mean Corpuscular Hemoglobin 26.5 PG (26-34); Monocytes Absolute Auto 800 /uL (0-900); Monocytes Percent Auto 5.3 % (3-14); Neutrophils Absolute Auto 13100 /uL (1500-7000); Neutrophils Percent Auto 84.8 % (50-75); Platelet Count 537 X10^3/uL (150-400); Red Blood Cell Count 4.67 X10^6/uL (4.0-5.2); Red Cell Distribution Width 16.9 % (11.6-14.8); White Blood Cell Count 15.4 X10^3/uL (4.5-11.0)
[2024-02-21 19:23] LABS: Add Manual Diff / Slide Review SLIDE REVIEW
[2024-02-21 19:40] LABS: Alanine Aminotransferase 26 IU/L (<35); Albumin 3.2 g/dL (3.5-5.0); Albumin Globulin Ratio 0.9 (1.0-2.8); Alkaline Phosphatase 216 U/L (38-126); Aspartate Aminotransferase 49 IU/L (14-36); Bilirubin Total 0.5 mg/dL (0.2-1.3); Blood Urea Nitrogen 9 mg/dL (7-17); Calcium 8.2 mg/dL (8.4-10.2); Carbon Dioxide 23 mmol/L (22-32); Chloride 110 mmol/L (98-107); Estimated Glomerular Filt Rate > 60 mL/min (>60); Globulin 3.5 g/dL (1.7-4.1); Glucose 111 mg/dL (70-100); HEMOLYSIS 27 (0-50); Potassium 3.4 mmol/L (3.4-5.1); Sodium 139 mmol/L (137-145); Total Protein 6.7 g/dL (6.3-8.2)
[2024-02-21 20:00] VITALS: BP 128/82; PULSE 82; RESP 20; TEMP 36.3; O2SAT 97
[2024-02-21 20:26] LABS: RBC Morphology Normal Morphology
[2024-02-22] MEDS: VANCOMYCIN 1,250 MG/250 ML PIGGYBACK 250 MG IV ×3 (00:16→16:00)
[2024-02-22 06:10] LABS: Alanine Aminotransferase 25 IU/L (<35); Albumin 3.1 g/dL (3.5-5.0); Albumin Globulin Ratio 0.9 (1.0-2.8); Alkaline Phosphatase 192 U/L (38-126); Aspartate Aminotransferase 40 IU/L (14-36); BUN Creatinine Ratio 14.8 (6-22); Bilirubin Total 0.5 mg/dL (0.2-1.3); Blood Urea Nitrogen 8 mg/dL (7-17); Calcium 8.3 mg/dL (8.4-10.2); Carbon Dioxide 23 mmol/L (22-32); Chloride 110 mmol/L (98-107); Estimated Glomerular Filt Rate > 60 mL/min (>60); Globulin 3.6 g/dL (1.7-4.1); Glucose 93 mg/dL (70-100); HEMOLYSIS 49 (0-50); Magnesium 2.1 mg/dL (1.6-2.3); Potassium 3.4 mmol/L (3.4-5.1); Sodium 139 mmol/L (137-145); Total Protein 6.7 g/dL (6.3-8.2)
[2024-02-22] MEDS: OXYCODONE IR 5 MG TABLET PO ×2 (06:54→19:57)
[2024-02-22] MEDS: PANTOPRAZOLE DR 20 MG TABLET PO (06:55)
[2024-02-22] MEDS: IBUPROFEN 600 MG TABLET PO ×2 (07:46→16:47)
[2024-02-22] MEDS: LORazepam 1 MG TABLET PO ×3 (07:46→20:28)
[2024-02-22] MEDS: HYDROMORPHONE 2 MG INJ IV (07:47)
[2024-02-22] MEDS: ACETAMINOPHEN 325 MG TABLET 650 MG PO ×2 (07:47→16:46)
[2024-02-22 08:00] VITALS: BP 137/80; PULSE 82; RESP 21; TEMP 36.2; O2SAT 94
[2024-02-22] MEDS: VANCOMYCIN TROUGH 1 REQUEST MISC (08:30)
[2024-02-22 08:49] LABS: Add Manual Diff / Slide Review NO; Basophils Absolute Auto 0 /uL (0-100); Basophils Percent Auto 0.3 % (0-2); Eosinophils Absolute Auto 200 /uL (0-450); Eosinophils Percent Auto 1.2 % (2-4); Hematocrit 42.6 % (36-46); Hemoglobin 13.8 g/dL (12.0-16.0); Lymphocytes Absolute Auto 1500 /uL (1100-4500); Lymphocytes Percent Auto 11.8 % (25-40); Mean Corpuscular HGB Conc 32.4 % (30-36); Mean Corpuscular Hemoglobin 26.5 PG (26-34); Mean Corpuscular Volume 81.7 fL (80-100); Monocytes Absolute Auto 700 /uL (0-900); Monocytes Percent Auto 5.4 % (3-14); Neutrophils Absolute Auto 10500 /uL (1500-7000); Neutrophils Percent Auto 81.3 % (50-75); Platelet Count 509 X10^3/uL (150-400); Red Blood Cell Count 5.21 X10^6/uL (4.0-5.2); Red Cell Distribution Width 16.9 % (11.6-14.8); White Blood Cell Count 12.9 X10^3/uL (4.5-11.0)
[2024-02-22 09:10] LABS: Vancomycin Trough 16.2 ug/mL (10-20)
--- NOTE | 2024-02-22 09:11 | P.PN_ITS ---
Subjective Subjective Interval history: Summary: Admitted with a left leg cellulitis. Subjective: The leg feels little bit better today, still swollen, and red. There is still some pain. The skin is somewhat blistered and there has an area of ulceration from blistering. Exam Vital Signs (past 8 hours): - 02/22/24 08:00 Temperature 97.1 F L Pulse Rate 82 Respiratory Rate 21 Blood Pressure 137/80 Pulse Oximetry 94 Oxygen Flow Rate 0 Oxygen Delivery Method Room Air Oxygen Flow Rate 0 Narrative Exam Narrative: NAD, alert and oriented. Fluent speech. Lungs are clear, normal rate and effort. Heart is regular, no murmur gallop or rub. Abdomen is soft, non distended. Extremities: Left leg is swollen, red, and somewhat tender. This is primarily from the knee down to the top of the foot. There is some blistering as well over the anterior tibial area. There is no fluctuance, induration, or crepitus. -the leg is slightly less red and swollen than yesterday. The ulceration and skin peeling is slightly worse. Objective Labs 02/22/24 08:33 02/22/24 05:45 Labs: Laboratory Results - last 24 hr 02/21/24 02/22/24 02/22/24 19:10 05:45 08:33 WBC 15.4 H 12.9 H RBC 4.67 5.21 H Hgb 12.3 13.8 Hct 37.8 42.6 MCV 81.0 81.7 MCH 26.5 26.5 MCHC 32.7 32.4 RDW 16.9 H 16.9 H Plt Count 537 H 509 H Neut % (Auto) 84.8 H 81.3 H Lymph % (Auto) 9.3 L 11.8 L Garza % (Auto) 5.3 5.4 Eos % (Auto) 0.3 L 1.2 L Baso % (Auto) 0.3 0.3 Neut # (Auto) 30308 H 47496 H Lymph # (Auto) 1400 1500 Garza # (Auto) 800 700 Eos # (Auto) 0 200 Baso # (Auto) 0 0 RBC Morphology Normal morphology Sodium 139 139 Potassium 3.4 3.4 Chloride 110 H 110 H Carbon Dioxide 23 23 BUN 9 8 Creatinine 0.60 0.54 Estimated GFR > 60 > 60 BUN/Creatinine Ratio 15.0 14.8 Glucose 111 H 93 Calcium 8.2 L 8.3 L Magnesium 2.0 2.1 Total Bilirubin 0.5 0.5 AST 49 H 40 H ALT 26 25 Alkaline Phosphatase 216 H 192 H Total Protein 6.7 6.7 Albumin 3.2 L 3.1 L Globulin 3.5 3.6 Albumin/Globulin Ratio 0.9 L 0.9 L PFSH Medical History Polysubstance dependence Social History household members: spouse Smoking Status: Current every day smoker alcohol intake: current Assessment & Plan Assessment & Plan narrative: 1. Sepsis secondary to a left leg soft tissue infection (initially had hypotension and hyperbilirubinemia), present on admission and improving. 2. Left leg cellulitis with skin ulceration, present on admission and improving. 3. Polysubstance abuse with fentanyl primarily, present on admission and active. Plan: -continue antibiotics, ceftriaxone and vancomycin. -leg elevation -wound care consult -continue methadone at current dosing TAHIRA is February 22. Time-Based Coding :: [TOTAL MINUTES] spent with patient and on the chart (including review of chart, obtaining history, exam, reviewing outside data, placing orders, documenting exam and treatment plan, and counseling patient) on [DATE].
[2024-02-22] MEDS: ENOXAPARIN 40 MG/0.4 ML SYRINGE SUBCUT (09:22)
[2024-02-22] MEDS: METHADONE 10 MG TABLET PO ×2 (09:22→20:28)
[2024-02-22] MEDS: NICOTINE 21 MG PATCH TOP (09:22)
[2024-02-22] MEDS: GABAPENTIN 300 MG CAPSULE PO ×3 (09:22→20:28)
[2024-02-22] MEDS: POTASSIUM CHLORIDE 20 MEQ TAB 40 MEQ PO (10:40)
[2024-02-22 14:00] VITALS: BP 134/84; PULSE 76; RESP 24; TEMP 36.2; O2SAT 96
--- NOTE | 2024-02-22 14:29 | CM.DPC ---
DCP Cont: Per MD, still redness and swelling in the leg and one more day IV-Abx and placed Wound Consult order. SW called [facility] and updated Fern on Wound Consult order and she will notify Dr. Hoffman and their team. Plan: MAEVE to follow for plan of d/c home with Sig Other likely via medicaid taxi if no ride available and to confirm no [facility] resources wanted at this time. MANUEL Melo
[2024-02-22] MEDS: cefTRIAXone 1,000 MG in SODIUM CHLORIDE 0.9% 100 ML 200 MG IV (14:43)
--- NOTE | 2024-02-22 15:58 | P.CONS_ITS ---
History of Present Illness Consult details Date Patient Seen: 02/22/24 Time Patient Seen: 15:30 Chief complaint: lft leg swelling and px Narrative: The patient is a 53-year-old female with current IV drug abuse who was admitted February 17, 2024 with cellulitis of the left lower extremity. She has been treated with IV antibiotics and the redness and swelling have slowly improved. She was noted to have significant leukocytosis on admission and this has also improved slightly. Yesterday the patient developed superficial ulceration around her ankle that was weeping serous fluid. The patient reports that the pain is slowly improving. She has never had any similar problems in the past. She reports a good appetite and denies having any other recent changes in her overall health. Venous ultrasound was negative for DVT. CT scan of the lower extremity showed evidence for diffuse cellulitis with no obvious abscess. The patient is a current cigarette smoker. She has no prior history of any vein disorders or DVT. Meds Home Medications and Allergies Home Medications Medication Instructions Recorded Confirmed Type No Known Home Medications 02/16/24 02/16/24 History Allergies Allergy/AdvReac Type Severity Reaction Status Date / Time No Known Drug Allergies Allergy Verified 12/24/23 06:40 Review of Systems Cardiovascular Comments: No chest pain Respiratory Comments: No shortness of breath Musculoskeletal Comments: Swelling right lower extremity Integumentary/Breasts Comments: Erythema right lower extremity Exam Vital Signs (past 8 hours): - 02/22/24 08:00 02/22/24 14:00 Temperature 97.1 F L 97.2 F L Pulse Rate 82 76 Respiratory Rate 21 24 Blood Pressure 137/80 134/84 Pulse Oximetry 94 96 Oxygen Flow Rate 0 0 Oxygen Delivery Method Room Air Oxygen Flow Rate 0 Narrative Exam Narrative: Well-developed well-nourished female who is alert and oriented and in no apparent distress Skin Other: Resolving erythema left lower extremity with superficial ulcers around the ankle, serous drainage, no palpable abscess or crepitance Extrem Other: Swelling left lower extremity Objective Labs 02/22/24 08:33 02/22/24 05:45 Labs: Laboratory Results - last 24 hr 02/21/24 02/22/24 02/22/24 19:10 05:45 08:33 WBC 15.4 H 12.9 H RBC 4.67 5.21 H Hgb 12.3 13.8 Hct 37.8 42.6 MCV 81.0 81.7 MCH 26.5 26.5 MCHC 32.7 32.4 RDW 16.9 H 16.9 H Plt Count 537 H 509 H Neut % (Auto) 84.8 H 81.3 H Lymph % (Auto) 9.3 L 11.8 L [place] % (Auto) 5.3 5.4 Eos % (Auto) 0.3 L 1.2 L Baso % (Auto) 0.3 0.3 Neut # (Auto) 95786 H 69049 H Lymph # (Auto) 1400 1500 [place] # (Auto) 800 700 Eos # (Auto) 0 200 Baso # (Auto) 0 0 RBC Morphology Normal morphology Sodium 139 139 Potassium 3.4 3.4 Chloride 110 H 110 H Carbon Dioxide 23 23 BUN 9 8 Creatinine 0.60 0.54 Estimated GFR > 60 > 60 BUN/Creatinine Ratio 15.0 14.8 Glucose 111 H 93 Calcium 8.2 L 8.3 L Magnesium 2.0 2.1 Total Bilirubin 0.5 0.5 AST 49 H 40 H ALT 26 25 Alkaline Phosphatase 216 H 192 H Total Protein 6.7 6.7 Albumin 3.2 L 3.1 L Globulin 3.5 3.6 Albumin/Globulin Ratio 0.9 L 0.9 L Vancomycin Trough 16.2 PFSH Medical History Polysubstance dependence Social History household members: spouse Tobacco & Substance Use Smoking Status: Current every day smoker alcohol intake: current Assessment & Plan Assessment and plan (1) Cellulitis of left leg: Status: Acute (2) Non-pressure chronic ulcer of left ankle limited to breakdown of skin: Status: Acute Assessment & Plan narrative: The patient with cellulitis and superficial ulcerations round left ankle. Wound culture obtained. Recommend dressing change with Iodoflex with Tubigrip for compression every other day, keep the leg elevated, continue antibiotic therapy and adjust based on culture results. Follow up at wound center after discharge. Time-Based Coding :: [45 MINUTES] spent with patient and on the chart (including review of chart, obtaining history, exam, reviewing outside data, placing orders, documenting exam and treatment plan, and counseling patient) on [02/22/24].
[2024-02-22] MEDS: OXYCODONE IR 10 MG TABLET PO ×2 (16:00→20:28)
[2024-02-22 21:47] VITALS: BP 123/74; PULSE 81; RESP 18; TEMP 35.9; O2SAT 94
[2024-02-23 00:20] VITALS: BP 143/89; PULSE 77; RESP 19; TEMP 35.8; O2SAT 97
[2024-02-23] MEDS: IBUPROFEN 600 MG TABLET PO ×3 (00:31→17:28)
[2024-02-23] MEDS: VANCOMYCIN 1,250 MG/250 ML PIGGYBACK 250 MG IV ×3 (00:31→17:28)
[2024-02-23] MEDS: LORazepam 1 MG TABLET PO ×4 (00:32→20:47)
[2024-02-23] MEDS: OXYCODONE IR 5 MG TABLET PO ×5 (00:32→20:48)
[2024-02-23] MEDS: ACETAMINOPHEN 325 MG TABLET 650 MG PO ×4 (00:32→20:48)
[2024-02-23 05:30] VITALS: BP 133/86; PULSE 75; RESP 18; TEMP 35.7; O2SAT 95
[2024-02-23] MEDS: OXYCODONE IR 10 MG TABLET PO (06:37)
[2024-02-23] MEDS: PANTOPRAZOLE DR 20 MG TABLET PO (06:38)
[2024-02-23 07:04] LABS: BUN Creatinine Ratio 22.8 (6-22); Blood Urea Nitrogen 13 mg/dL (7-17); Calcium 8.7 mg/dL (8.4-10.2); Carbon Dioxide 21 mmol/L (22-32); Chloride 112 mmol/L (98-107); Estimated Glomerular Filt Rate > 60 mL/min (>60); Glucose 88 mg/dL (70-100); HEMOLYSIS 36 (0-50); Sodium 140 mmol/L (137-145)
[2024-02-23 08:00] VITALS: BP 140/82; PULSE 74; RESP 15; TEMP 35.7; O2SAT 96
[2024-02-23] MEDS: ENOXAPARIN 40 MG/0.4 ML SYRINGE SUBCUT (09:29)
[2024-02-23] MEDS: GABAPENTIN 300 MG CAPSULE PO ×3 (09:29→20:47)
[2024-02-23] MEDS: METHADONE 10 MG TABLET PO ×2 (09:29→20:48)
[2024-02-23] MEDS: NICOTINE 21 MG PATCH TOP (09:30)
--- NOTE | 2024-02-23 10:55 | PM.PN.1 ---
Subjective Subjective Interval history: Summary: Patient has a history of polysubstance abuse including IVDU. She was a left leg cellulitis which has slowly been improving. She did have a area of blistering and ulceration which was dressed by wound care on the . This will be changed on the . She was more pain in the leg today, It had been doing better yesterday. Subjective: She was having a fair amount of left leg pain. She was still feels moderately ill. She was having a dry cough as well. No fevers, or chills. Exam Vital Signs (past 8 hours): - 02/23/24 05:30 02/23/24 08:00 Temperature 96.3 F L 96.3 F L Pulse Rate 75 74 Respiratory Rate 18 15 Blood Pressure 133/86 140/82 Pulse Oximetry 95 96 Oxygen Flow Rate 0 0 Oxygen Delivery Method Room Air Oxygen Flow Rate 0 Narrative Exam Narrative: NAD, alert and oriented. Fluent speech. Lungs are clear, normal rate and effort. Heart is regular, no murmur gallop or rub. Abdomen is soft, non distended. Extremities: The left leg is still red, and tender. It was wrapped, we are going to remove the wrapping today and just leave the surface dressing over the area of blistering. Objective Labs 02/22/24 08:33 02/23/24 06:25 Labs: Laboratory Results - last 24 hr 02/23/24 06:25 Sodium 140 Potassium 4.0 Chloride 112 H Carbon Dioxide 21 L BUN 13 Creatinine 0.57 Estimated GFR > 60 BUN/Creatinine Ratio 22.8 H Glucose 88 Calcium 8.7 PFSH Medical History Polysubstance dependence Social History household members: spouse Smoking Status: Current every day smoker alcohol intake: current Assessment & Plan Assessment & Plan narrative: 1. Sepsis secondary to a left leg soft tissue infection (initially had hypotension and hyperbilirubinemia), present on admission and improving. 2. Left leg cellulitis with skin ulceration, present on admission and improving. She requires another night of IV antibiotics. 3. Polysubstance abuse with fentanyl primarily, present on admission and active. 4. Left leg wound, new and active. This is a non pressure chronic ulcer with acute breakdown of skin. Plan: -continue antibiotics, ceftriaxone and vancomycin. -leg elevation, loosen wrapping. -wound care consult completed, thank you. -continue methadone at current dosing TAHIRA is February 23 if she improves clinically.. Time-Based Coding :: [TOTAL MINUTES] spent with patient and on the chart (including review of chart, obtaining history, exam, reviewing outside data, placing orders, documenting exam and treatment plan, and counseling patient) on [DATE].
[2024-02-23 14:00] VITALS: BP 141/81; PULSE 77; RESP 21; TEMP 36.1; O2SAT 94
[2024-02-23] MEDS: cefTRIAXone 1,000 MG in SODIUM CHLORIDE 0.9% 100 ML 200 MG IV (14:17)
--- NOTE | 2024-02-23 14:50 | CM.DPC ---
DCP Continued: Reviewed EMR and team rounds for pt?s medical status. Per hospitalist, pt's discharge pending progress of leg pain. Per RN, pt still experiencing pain and not stable for discharge. DCP following for Medicaid Transport coordination when discharge is imminent, noted this with pt's RN. Plan: Anticipating discharge home with Medicaid Transport on 02/23 or when medically stable. CM Team will continue to follow for coordination of discharge plans. SANTOS RestrepoSW
[2024-02-23] MEDS: HYDROMORPHONE 2 MG INJ IV (15:09)
[2024-02-24] VITALS: BP 137/80; PULSE 80; RESP 18; TEMP 36.2; O2SAT 94
[2024-02-24] MEDS: VANCOMYCIN 1,250 MG/250 ML PIGGYBACK 250 MG IV ×2 (01:11→08:47)
[2024-02-24] MEDS: IBUPROFEN 600 MG TABLET PO (01:11)
[2024-02-24] MEDS: LORazepam 1 MG TABLET PO ×3 (01:11→15:15)
[2024-02-24] MEDS: OXYCODONE IR 5 MG TABLET PO ×2 (01:12→06:12)
[2024-02-24 06:00] VITALS: BP 132/80; PULSE 76; RESP 18; TEMP 36.2; O2SAT 94
[2024-02-24] MEDS: PANTOPRAZOLE DR 20 MG TABLET PO (06:12)
[2024-02-24] MEDS: ACETAMINOPHEN 325 MG TABLET 650 MG PO (06:12)
[2024-02-24] MEDS: GABAPENTIN 300 MG CAPSULE PO ×2 (08:47→15:16)
[2024-02-24] MEDS: NICOTINE 21 MG PATCH TOP (08:47)
[2024-02-24] MEDS: METHADONE 10 MG TABLET PO (08:47)
[2024-02-24] MEDS: ENOXAPARIN 40 MG/0.4 ML SYRINGE SUBCUT (08:47)
--- NOTE | 2024-02-24 14:29 | CM.DPNOTE ---
Addendum entered by MANUEL Bernard 02/24/24 15:35: ADD: Patient feels she may be stranded by her friends and requests taxi. Placed call to [employer], [facility] transport after hours. Taxi scheduled for poultry picker at 4:30p, ER entrance. Patient and staff updated. Original Note: DC Note Patient discharged home today; patient has friends that are coming to take her home. No addtl needs identified by this CM team. Home on oral medication. PHILLY
--- NOTE | 2024-02-24 15:07 | PC.NURSE ---
patient teaching done at bedside with patient. Information was give to patient about [facility] and their services offered as well as contact info. Patient appreciative. Patient questions the location of her purse. Patient is aware that it is locked up and she will receive it upon leaving the floor given the nature of contents in purse. Patient agreeable to plan.
--- NOTE | 2024-02-24 19:43 | PM.DS.1 ---
History of Present Illness History of Present Illness Chief complaint: lft leg swelling and px Narrative: Per H&P: The pt presents to the ER with redness and swelling in the left leg that has been steadily getting worse over the past 2 days. She was admitted 2 months ago for the right leg having cellulitis. ER staff report that she continues to use Fentanyl and suspect that she is injecting in the Right leg. The pt denies any fevers, chills, SOB, dyspnea N/V, and is able to walk on the affected leg, there has been no injury to the leg, no bites, scratches. Discharge Providers Provider Date of admission: 02/16/24 21:08 Discharge Date: 02/24/24 Primary care physician: *ED Temp* Consults: 02/22/24 14:05 Consult to Wound Care Routine Comment: Consulting Provider: [facility] Discharge provider: Lindsay Velasquez MD Summary Hospital Course Discharge Diagnosis: 1. Left lower extremity cellulitis, improving 2. Polysubstance abuse, with active opioid use disorder (fentanyl) 3. Left ankle wound 4. Sepsis secondary to left lower extremity cellulitis, resolved 5. Leukocytosis, improved 6. Thrombocytosis, improving Hospital Course: Patient was admitted with a significant left lower extremity cellulitis and sepsis. She was initiated on broad-spectrum IV antibiotics. There was no drainage to culture. However, her MRSA screen was positive. She has a history of opioid use disorder and was initiated on methadone for withdrawal symptoms. She was also placed on gabapentin for withdrawal symptoms. Additionally oxycodone was ordered for pain from her cellulitis. She did well with this combination. She did develop blistering to the lower extremity and a wound care consultation was obtained. Local wound treatment was recommended. Patient showed gradual improvement and on the date of discharge had significant decrease in swelling, erythema, warmth, and pain to the left lower extremity. She is encouraged to follow-up with a local methadone maintenance program for ongoing treatment of her opioid use disorder. She will continue 1 additional week of oral antibiotics to include Keflex and doxycycline for MRSA coverage.She is discharged in stable condition. Status at Discharge Cognitive/behavioral status at discharge: at baseline, oriented Functional status at discharge: independent ambulation Overall status at discharge: patient is progressing back to baseline Time Spent with Patient Time spent: Less than 30 minutes Exam Vital Signs (past 8 hours): Oxygen Delivery Method Room Air Oxygen Flow Rate 0 Narrative Exam Narrative: GEN: Alert and oriented x 3, NAD HEENT:NC, Face symmetric CHEST: Respiratory excursions symmetric, CTAB CV: RRR, no M/R/G ABD: Soft, NT/ND, BT present in all 4 quadrants, no organomegaly or masses EXTR: warm, well perfused, decreased erythema and warmth to the left lower extremity compared to the sharpie outlined from February 21, she has significant wrinkling noted to the skin consistent with previous significant edema, no drainage, there is a Mepilex dressing over her medial ankle SKIN: warm and dry, no rash NEURO: Alert and oriented x 3, nonfocal Objective Labs 02/22/24 08:33 02/23/24 06:25 [facility] Medical History Polysubstance dependence Social History household members: spouse Smoking Status: Current every day smoker alcohol intake: current Discharge Plan Discharge Plan Patient Disposition: Home Provider Discharge Comment: 1) Continue your antibiotics and take them until they are gone 2) Return to the ER for increased redness/swelling/pain, fevers, inability to hold down food or fluids. 3) Please contact a local methadone clinic or suboxone clinic for help maintaining sobriety for your opioid use disorder; you have been given a 14 day supply of methadone. Discharge orders & Medications Prescriptions: New methadone 10 mg Tablet 10 mg PO BID Qty: 28 0RF pantoprazole 20 mg Tablet,Delayed Release (Dr/Ec) 20 mg PO 0600 Qty: 30 0RF gabapentin 300 mg Capsule 300 mg PO TID Qty: 42 0RF ibuprofen 600 mg Tablet 600 mg PO Q6H PRN (Reason: Fever/Mild Pain (1-3)) Qty: 30 0RF oxycodone 5 mg Tablet 5 mg PO Q3HR PRN (Reason: Pain, Moderate (4-6)) Qty: 20 0RF doxycycline monohydrate 100 mg tablet 100 mg PO BID Qty: 14 0RF cephalexin 500 mg capsule 500 mg PO QID Qty: 28 0RF Follow up/Referrals: *Temp,ED* [Primary Care Provider] - Discharge Health Status Multidrug resistant organism: MRSA Diet/Activity/Treatments Diet: Diet as Tolerated and Regular Activity: As tolerated, elevate your leg as able Oxygen: N/A Visit Report/Discharge Packet Instructions: DI for Cellulitis -- Adult, DI for Methicillin-Resistant Staph Infection (MRSA) Stand Alone Forms: Patient Portal/API, Stroke Signs & Symptoms Discharge Data Primary Care Provider: *Temp,ED*
--- NOTE | 2024-02-29 09:59 | PC.NURSE ---
late entry- clindamycin dose started 02/15 at 2103 was complete on the floor at 2300 per RN
== END 2024-02-24 16:30 | disposition home or self-care (01) | DRG 720 ==
LOC: ED 21:08 → AC 21:09
PROVIDERS: Emergency Medicine; Family Medicine; Internal Medicine; Admitting Provider Internal Medicine; Emergency Provider Emergency Medicine; Referring Provider Emergency Medicine; Visit Provider Internal Medicine
DX: A41.9 Sepsis, unspecified organism (principal); L03.116 Cellulitis of left lower limb; F15.10 Other stimulant abuse, uncomplicated; F14.10 Cocaine abuse, uncomplicated; I95.9 Hypotension, unspecified; E80.6 Other disorders of bilirubin metabolism; L97.321 Non-pressure chronic ulcer of left ankle limited to breakdown of skin; D75.839 Thrombocytosis, unspecified; D72.829 Elevated white blood cell count, unspecified; F11.93 Opioid use, unspecified with withdrawal; F17.200 Nicotine dependence, unspecified, uncomplicated; Z22.322 Carrier or suspected carrier of Methicillin resistant Staphylococcus aureus
CPT/HCPCS: 36415; 73701; 80048; 80053; 80202; 80305; 80320; 82565; 83605; 83735; 83880; 84145; 85007; 85025; 87040; 87070; 87205; 93005; 93971; 94640; 96365; 96366; 96367; 99233; 99285; 99291; J0696; J1171; J1650; J2543; J7050; J7613; Q9967

== ENCOUNTER 2025-02-08 17:04 | Inpatient (IN) | payer OTHER, SELFPAY ==
[2024-02-16 22:11] VITALS: BMI 24.3
[2025-02-08] VITALS (19 sets, daily range): BP systolic 108–162; BP diastolic 53–104; PULSE 84–111; RESP 13–25; TEMP 37.4–39.6; O2SAT 91–98; BMI 27.3
--- NOTE | 2025-02-08 17:13 | DI.US.S_ITS ---
PROCEDURE: US PERIP VENOUS LOW EXTREM LT INDICATIONS: SWELLING/REDNESS TECHNIQUE: Real-time imaging, as well as color and pulse Doppler interrogation, were performed of the lower extremity deep veins from the inguinal ligament to the popliteal fossa, with documentation of the visualized calf veins. COMPARISON: [facility], , [facility] VENOUS LOW EXTREM LT, 02/19/2024, 17:10. FINDINGS: The common femoral, femoral, popliteal veins are normally compressible, and free of intraluminal thrombus. Calf veins are not well visualized. Color and pulse Doppler demonstrate normal phasic intraluminal flow. There is normal augmentation response to distal compression maneuver. Unchanged borderline prominent inguinal lymph node. IMPRESSION: No findings of lower extremity deep venous thrombosis. Dictated by: Samantha Dupont M.D. on 02/08/2025 at 20:04 Approved by: Samantha Dupont M.D. on 02/08/2025 at 20:05
--- NOTE | 2025-02-08 17:13 | DI.RAD.S_ITS ---
PROCEDURE: XR CHEST 1V INDICATIONS: sepsis TECHNIQUE: One view of the chest was acquired. COMPARISON: None. FINDINGS: Surgical changes and devices: None. Lungs and pleura: Lungs are clear. No pleural effusions or pneumothorax. Mediastinum: Mediastinal contours appear normal. Heart size is normal. Bones and chest wall: No suspicious bony lesions. Overlying soft tissues appear unremarkable. IMPRESSION: No acute pulmonary process. Dictated by: Samantha Dupont M.D. on 02/08/2025 at 17:59 Approved by: Samantha Dupont M.D. on 02/08/2025 at 17:59
[2025-02-08] MEDS: PIPERACILLIN/TAZO 4.5 GM in SODIUM CHLORIDE 0.9% 100 ML IV (18:13)
[2025-02-08 18:18] LABS: Add Manual Diff / Slide Review NO; Hematocrit 41.6 % (36-46); Hemoglobin 13.8 g/dL (12.0-16.0); Lymphocytes Absolute Auto 700 /uL (1100-4500); Mean Corpuscular HGB Conc 33.2 % (30-36); Mean Corpuscular Hemoglobin 27.6 PG (26-34); Mean Corpuscular Volume 83.0 fL (80-100); Platelet Count 247 X10^3/uL (150-400)
--- NOTE | 2025-02-08 18:18 | ED.SEPSIS ---
HPI - Sepsis General Chief Complaint: Fever Mode of arrival: EMS Source: patient and EMS Limitations: no limitations Evaluation Sepsis Screen: Possible Sepsis Risk Sepsis Infection Criteria Present: Documented Infection Sepsis Onset Time: 18:00 Narrative: 54-year-old female with a longstanding history of fentanyl usage for several years presents with generalized weakness and worsening pain along all her sores as well as her lower leg extremity. Her last usage was this a.m.. She comes in meeting sepsis criteria. All other 12 point systems negative. Patient having some slight shortness of breath as well. Review of Systems Review of Systems ROS Unobtainable: All systems reviewed & are unremarkable except as noted in HPI and below Patient History Medical History Polysubstance dependence Social History household members: spouse alcohol intake: current tobacco type: cigarettes alcohol intake frequency: holidays/special occasions only Exam Narrative Exam Narrative: General: Patient appears weak Head: normocephalic, atraumatic, HEENT: Pupils equal round reactive, eyes tracking well, neck supple, no JVD Heart: regular rate and rhythm, no murmurs, rubs, or gallops heard Lungs: clear to auscultation, no adventitious sounds Abdomen: soft , nontender, nondistended, positive bowel sounds Neurological: no focal neurological signs, moving all extremities well, alert and oriented x3, sores all over body in various healing stages. Left lower extremity has 3 to 4+ edema. Extensive redness and warmth and pain on the left lower extremity Psych: good judgment ,good insight, mood is normal. Initial Vital Signs Initial Vital Signs: Vital Signs Temperature 103.2 F H 02/08/25 17:06 Pulse Rate 105 H 02/08/25 17:06 Respiratory Rate 20 02/08/25 17:06 Blood Pressure 162/71 H 02/08/25 17:06 Pulse Oximetry 92 02/08/25 17:06 Oxygen Delivery Method Room Air 02/08/25 17:06 Course Orders Ordered: ED Orders 02/08/25 17:13 US perip venous low extrem lt Stat XR chest 1V Stat EKG-12 Lead Stat 02/08/25 18:05 Blood Culture Stat 02/08/25 18:07 Complete Blood Count AUTO DIFF Stat Comprehensive Metabolic Panel Stat Lactate (Lactic Acid) Stat PTT Partial Thromboplastin [place] Stat Procalcitonin Stat Prothrombin Time INR Stat 02/08/25 18:16 VBG [Venous Blood Gas] STAT 02/08/25 18:22 CT abdomen pelvis w con Stat Venous Blood Gas Routine 02/08/25 19:27 Urinalysis and Microscopic Stat 02/08/25 22:40 Lactate (Lactic Acid) Stat Acetaminophen (Acetaminophen 325 Mg Tablet) 650 mg PO Q6H PRN PRN Reason: pain and fever Enoxaparin Sodium (Enoxaparin 40 Mg/0.4 Ml Syringe) 40 mg SUBCUT DAILY [facility] Sodium Chloride (Normal Saline 0.9%) 1,000 mls @ 150 mls/hr IV CONT MIGUEL Last Admin: 02/09/25 00:10 Dose: 150 mls/hr Documented By: ANGELA Piperacillin Sod/Tazobactam (Sod 3.375 gm/ Sodium Chloride) 100 mls @ 25 mls/hr IV Q8H MIGUEL Ketorolac Tromethamine (Ketorolac 30 Mg/Ml Vial) 15 mg IV Q6H PRN PRN Reason: mod-severe pain Stop: 02/14/25 00:45 Naloxone HCl (Naloxone 0.4 Mg/Ml Vial) 0.2 mg IV Q2MIN PRN PRN Reason: Opiate Reversal Nicotine (Nicotine 21 Mg Patch) 21 mg TOP DAILY [facility] Pantoprazole Sodium (Pantoprazole Dr 40 Mg Tablet) 40 mg PO 0700 MIGUEL Discontinued Medications Piperacillin Sod/Tazobactam (Sod 4.5 gm/ Sodium Chloride) 100 mls @ 200 mls/hr IV STAT ONE Stop: 02/08/25 17:14 Last Infusion: 02/08/25 19:32 Dose: Infused Documented By: Admin: 02/08/25 18:13 Dose: 200 mls/hr Documented By: ESTELLA Sodium Chloride (Normal Saline 0.9%) 2,381.37 mls @ 1,587.58 mls/hr 30 ml/kg infuse over 90 min (2381.37 ml) IV NOW ONE Stop: 02/08/25 19:46 Last Infusion: 02/08/25 20:14 Dose: Infused Documented By: Admin: 02/08/25 18:19 Dose: 1,587.58 mls/hr Documented By: ESTELLA Vancomycin HCl 1,000 mg/ (Sodium Chloride) 100 mls @ 100 mls/hr IV NOW ONE Stop: 02/08/25 20:06 Last Admin: 02/08/25 21:01 Dose: Not Given Documented By: ESTELLA Vancomycin HCl (Vancomycin) 1,000 mg in 200 mls @ 200 mls/hr IV NOW ONE Stop: 02/08/25 21:34 Last Infusion: 02/08/25 21:56 Dose: Infused Documented By: Admin: 02/08/25 20:47 Dose: 200 mls/hr Documented By: ESTELLA Ketorolac Tromethamine (Ketorolac 30 Mg/Ml Vial) 15 mg IV NOW ONE Stop: 02/08/25 18:22 Last Admin: 02/08/25 19:31 Dose: 15 mg Documented By: ESTELLA Ketorolac Tromethamine (Ketorolac 30 Mg/Ml Vial) 15 mg IV NOW ONE Stop: 02/08/25 20:49 Last Admin: 02/08/25 21:39 Dose: 15 mg Documented By: ESTELLA Vancomycin HCl (Vancomycin Per Pharmacy) 1 request MISC STAT STA Stop: 02/08/25 17:14 Last Admin: 02/08/25 20:14 Dose: 1 request Documented By: ESTELLA Consultations Consultation #1: hospitalist Dr. Dee accepted patient to be admitted into the icu Vital Signs Vital signs: Vital Signs - 8 hr 02/08/25 17:30 02/08/25 17:30 02/08/25 18:00 Temperature Pulse Rate 104 H 102 H Respiratory Rate Blood Pressure 145/64 H Pulse Oximetry 91 Oxygen Delivery Method 02/08/25 18:14 02/08/25 18:14 02/08/25 18:30 Temperature Pulse Rate 102 H 101 H Respiratory Rate 21 23 Blood Pressure 137/63 Pulse Oximetry 96 97 Oxygen Delivery Method 02/08/25 18:30 02/08/25 19:20 02/08/25 19:20 Temperature Pulse Rate 109 H Respiratory Rate Blood Pressure 141/65 H 155/104 H Pulse Oximetry 96 Oxygen Delivery Method 02/08/25 19:28 02/08/25 19:28 02/08/25 19:30 Temperature Pulse Rate 100 H 99 H Respiratory Rate 17 18 Blood Pressure 155/69 H Pulse Oximetry 95 97 Oxygen Delivery Method 02/08/25 19:30 02/08/25 19:31 02/08/25 20:00 Temperature 100.1 F H Pulse Rate 99 H Respiratory Rate 25 H Blood Pressure 145/65 H Pulse Oximetry 94 Oxygen Delivery Method Room Air 02/08/25 20:00 02/08/25 20:30 02/08/25 20:30 Temperature Pulse Rate 98 H Respiratory Rate 17 Blood Pressure 125/56 L 123/61 Pulse Oximetry 92 Oxygen Delivery Method 02/08/25 21:00 02/08/25 21:00 02/08/25 21:30 Temperature Pulse Rate 97 H 89 Respiratory Rate 23 21 Blood Pressure 122/58 L Pulse Oximetry 92 95 Oxygen Delivery Method 02/08/25 22:00 02/08/25 22:00 02/08/25 22:18 Temperature Pulse Rate 89 Respiratory Rate 13 Blood Pressure 114/55 L Pulse Oximetry 92 91 Oxygen Delivery Method Room Air 02/08/25 22:18 02/08/25 22:30 02/08/25 22:30 Temperature 99.4 F Pulse Rate 84 89 Respiratory Rate 14 16 Blood Pressure 111/57 L 112/53 L Pulse Oximetry 91 Oxygen Delivery Method Sepsis Evaluation (ED) Triage Screening Sepsis Screen: Possible Sepsis Risk Level 1 - Infection Sepsis Infection Criteria Present: Documented Infection MDM - Sepsis Lab Data 02/08/25 18:07 02/08/25 18:07 Labs: Lab Results 02/08/25 02/08/25 02/08/25 Range/Units 18:07 18:22 19:27 WBC 24.6 H (4.5-11.0) X10^3/uL RBC 5.01 (4.0-5.2) X10^6/uL Hgb 13.8 (12.0-16.0) g/dL Hct 41.6 (36-46) % MCV 83.0 (80-100) fL MCH 27.6 (26-34) PG MCHC 33.2 (30-36) % RDW 14.5 (11.6-14.8) % Plt Count 247 (150-400) X10^3/uL Neut % (Auto) 94.8 H (50-75) % Lymph % (Auto) 2.7 L (25-40) % [place] % (Auto) 2.2 L (3-14) % Eos % (Auto) 0.3 L (2-4) % Baso % (Auto) 0.0 (0-2) % Neut # (Auto) 99848 H (3474-9915) /uL Lymph # (Auto) 700 L (2817-7678) /uL [place] # (Auto) 500 (0-900) /uL Eos # (Auto) 100 (0-450) /uL Baso # (Auto) 0 (0-100) /uL PT 13.6 H (9.4-12.5) SECONDS INR 1.2 (0.9-1.3) APTT 53 H (25.1-36.5) SECONDS VBG pH 7.43 (7.33-7.43) VBG pCO2 46.0 (45-50) mmHg VBG pO2 22 L (35-45) mmHg VBG HCO3 30 H (24-28) mmol/L VBG Total CO2 29 (24-29) mmol/L VBG O2 Saturation 39 L (70-75) % VBG Base Excess 5.1 H (0-4) mmol/L FiO2 % 21.0 % % Sodium 138 (137-145) mmol/L Potassium 3.7 (3.4-5.1) mmol/L Chloride 100 (98-107) mmol/L Carbon Dioxide 30 (22-32) mmol/L BUN 14 (7-17) mg/dL Creatinine 0.83 (0.52-1.04) mg/dL Estimated GFR > 60 (>60) mL/min BUN/Creatinine Ratio 16.9 (6-22) Glucose 127 H (70-99) mg/dL Lactate 2.0 (0.7-2.1) mmol/L Calcium 9.1 (8.4-10.2) mg/dL Total Bilirubin 1.0 (0.2-1.3) mg/dL AST 35 (14-36) IU/L ALT 35 H (<35) IU/L Alkaline Phosphatase 100 (38-126) U/L Total Protein 7.5 (6.3-8.2) g/dL Albumin 4.1 (3.5-5.0) g/dL Globulin 3.4 (1.7-4.1) g/dL Albumin/Globulin Ratio 1.2 (1.0-2.8) Procalcitonin 3.35 H (<0.5) ng/mL Urine Color Yellow Urine Appearance Clear Urine pH 7.5 (4.5-8.0) Ur Specific [place] 1.015 (1.000-1.035) Urine Protein Trace H (Negative) Urine Glucose (UA) Negative (Negative) g/dL Urine Ketones Negative (NEGATIVE) Urine Occult Blood Negative (Negative) Urine Nitrate Negative (Negative) Urine Bilirubin Negative (NEGATIVE) Urine Urobilinogen 1.0 (0.2) E.U./dL Ur Leukocyte Esterase Negative (NEGATIVE) Urine RBC None seen (0-5/HPF) Urine WBC 0-1/hpf (0-5/HPF) Ur Squamous Epith Cells 0-1 /hpf (0-5/HPF) Urine Bacteria Occasional (0-1) (None) Ur Culture Indicated? Cult not indicated Vol Urine Centrifuged 10ml (spun) Imaging Data Chest x-ray: Radiologist's Impression: No acute pulmonary process US - DVT: Radiologist's Impression: no findings of lower extremity DVT CT scan - abdomen/pelvis: Radiologist's Impression: no acute intra-abdominal or pelvic process. Persistent prominence of the inguinal lymph nodes unchanged. ECG Data Interpretation: normal sinus rhythm, normal axis nonspecific ST and T-wave abnormalities. Suddenly prolonged QT. rate at 96 beats per minute. no changes compared to previous EKG. MDM Narrative Medical decision making narrative: 54-year-old female with a history of IV fentanyl usage. Her last usage was this a.m. Presents with worsening weakness and increasing pain and redness in her left lower extremity. She has various healing sores and worsening cellulitis in her left lower extremity presenting with a sepsis picture. The sepsis protocol was initiated and she was fluid resuscitated and started on vancomycin and Zosyn. Blood cultures were taken. Hospitalist was consulted and patient was admitted to the ICU. She remained stable here in the ED Discharge Plan Departure Patient Disposition: Admitted As Inpatient Clinical Impression: Sepsis Qualifiers: Sepsis type: sepsis due to unspecified organism Sepsis acute organ dysfunction status: unspecified Qualified Code(s): A41.9 - Sepsis, unspecified organism Admit Date/Time: 02/08/25 22:36 Admit Provider: Juan Carlos Dee
[2025-02-08] MEDS: SODIUM CHLORIDE 0.9% 2,381.37 ML 1587.58 ML IV (18:19)
--- NOTE | 2025-02-08 18:22 | DI.CT.S_ITS ---
PROCEDURE: CT ABDOMEN PELVIS W CON INDICATIONS: sepsis TECHNIQUE: After the administration of intravenous contrast, axial sections acquired from the lung bases to the pubic symphysis. Coronal and sagittal reformats were performed. For radiation dose reduction, the following was used: automated exposure control, adjustment of mA and/or kV according to patient size. COMPARISON: [facility], US, US PERIPH VENOUS LOW EXTREM LT, 02/19/2024, 17:10. [facility], CT, CT LE LT W CON, 02/16/2024, 18:38. FINDINGS: Image quality: Diagnostic. Lower Chest: Minimal appearance of lingular opacities. ABDOMEN: Liver: Minimal coarsened appearance of the liver. It measures 17.2 cm. Gallbladder: No radiopaque gallstones or wall thickening. Biliary ducts: No biliary dilation. Pancreas: No ductal dilation. Spleen: Size is within normal limits. Adrenal Glands: No adrenal nodules. Kidneys and Ureters: No hydronephrosis. No solid mass. No complex renal cystic lesion which requires follow up. Stomach and Bowel: Normal colonic caliber, without significant wall thickening. Peritoneum: No abnormal intraperitoneal fluid. No free air. Ventral Wall: No significant ventral hernia. Abdominal Nodes: No retroperitoneal or mesenteric adenopathy by size criteria. Vessels: Aorta and inferior vena cava are normal in size. PELVIS: Pelvic Organs: Prominent follicle versus small right adnexal cyst measuring 1.4 cm. This is relatively unchanged compared to prior exam. Bladder: No bladder wall thickening, accounting for underdistention. Pelvic Nodes: Bilateral inguinal lymph nodes are present the largest is identified on the left measuring 1.8 cm. This is unchanged. Miscellaneous: No inguinal hernias are seen. Bones: No aggressive osseous abnormality. IMPRESSION: No acute intra-abdominal or pelvic process. Persistent prominence of the inguinal lymph nodes although unchanged. Dictated by: Samantha Dupont M.D. on 02/08/2025 at 19:15 Approved by: Samantha Dupont M.D. on 02/08/2025 at 19:18
[2025-02-08 18:25] LABS: Base Excess VBG 5.1 mmol/L (0-4); HCO3 VBG 30 mmol/L (24-28); Oxygen Saturation VBG 39 % (70-75); PCO2 VBG 46.0 mmHg (45-50); PO2 VBG 22 mmHg (35-45); Total CO2 VBG 29 mmol/L (24-29); pH VBG 7.43 (7.33-7.43)
[2025-02-08 18:26] LABS: INR 1.2 (0.9-1.3); Prothrombin Time 13.6 SECONDS (9.4-12.5)
[2025-02-08 18:29] LABS: PTT Partial Thromboplastin Tim 53 SECONDS (25.1-36.5)
[2025-02-08 18:31] LABS: Alanine Aminotransferase 35 IU/L (<35); Albumin 4.1 g/dL (3.5-5.0); Albumin Globulin Ratio 1.2 (1.0-2.8); Alkaline Phosphatase 100 U/L (38-126); Blood Urea Nitrogen 14 mg/dL (7-17); Calcium 9.1 mg/dL (8.4-10.2); Carbon Dioxide 30 mmol/L (22-32); Chloride 100 mmol/L (98-107); Estimated Glomerular Filt Rate > 60 mL/min (>60); Globulin 3.4 g/dL (1.7-4.1); Glucose 127 mg/dL (70-99); HEMOLYSIS 15 (0-50); Lactate (Lactic Acid) 2.0 mmol/L (0.7-2.1); Potassium 3.7 mmol/L (3.4-5.1); Sodium 138 mmol/L (137-145); Total Protein 7.5 g/dL (6.3-8.2)
[2025-02-08 18:47] LABS: Procalcitonin 3.35 ng/mL (<0.5)
[2025-02-08] MEDS: KETOROLAC 30 MG/ML VIAL 15 MG IV ×2 (19:31→21:39)
[2025-02-08 19:35] LABS: Appearance Urine UA CLEAR; Bilirubin Urine UA NEGATIVE (NEGATIVE); Color Urine UA YELLOW; Glucose Urine UA NEGATIVE (Negative); Ketones Urine UA NEGATIVE (NEGATIVE); Leukocyte Esterase Urine UA NEGATIVE (NEGATIVE); Nitrite Urine UA NEGATIVE (Negative); Occult Blood Urine UA NEGATIVE (Negative); Protein Urine UA TRACE (Negative); Specific Gravity Urine UA 1.015 (1.000-1.035); Urobilinogen Urine UA 1.0 E.U./dL (0.2)
[2025-02-08 19:37] LABS: pH Urine UA 7.5 (4.5-8.0)
[2025-02-08 19:39] LABS: Culture Indicated Urine Cult Not Indicated
--- NOTE | 2025-02-08 19:57 | EKG_ITS ---
[id number] [place] [address] Test Date: 2025-02-08 Pat Name: Kayla Ponce Department: Room: Gender: Female Die Baker: JED : 1970 Requested By: Order Number: [id number] Reading MD: Ede Stern Measurements Intervals [place] Rate: 96 P: 77 TX: 152 QRS: 63 QRSD: 76 T: 83 QT: 416 QTc: 525 Interpretive Statements Normal sinus rhythm Nonspecific ST and T wave abnormality Prolonged QT Electronically Signed On 02-09-2025 7:22:49 PST by Ede Stern
[2025-02-08] MEDS: VANCOMYCIN PER PHARMACY 1 REQUEST MISC (20:14)
[2025-02-08] MEDS: VANCOMYCIN 1,000 MG/200 ML PIGGYBACK 200 MG IV (20:47)
[2025-02-08 23:25] LABS: Lactate (Lactic Acid) 1.6 mmol/L (0.7-2.1)
[2025-02-09] VITALS (26 sets, daily range): BP systolic 99–145; BP diastolic 53–77; PULSE 73–91; RESP 14–20; TEMP 36.4–37.2; O2SAT 94–98
[2025-02-09] MEDS: SODIUM CHLORIDE 0.9% 1,000 ML 150 ML IV ×4 (00:10→21:57)
--- NOTE | 2025-02-09 00:37 | P.HP_ITS ---
History of Present Illness History of Present Illness Date Patient Seen: 02/09/25 Time Patient Seen: 00:37 Date of Onset of Symptoms: 02/07/25 Chief complaint: Left leg pain, redness, and weakness. Narrative: 54-year-old female with a history of IV fentanyl use, prior sepsis from left leg soft-tissue infection, and multiple other medical issues presents with generalized weakness and worsening wounds on both lower extremities?most pronounced in the left leg, which is markedly erythematous, edematous, and tender. She reports that the left leg wound began approximately 2 days ago. She has multiple sores over her body in various stages of healing. Injects fentanyl primarily in the upper extremities. Unsure about fever. Denies chest pain, shortness of breath at present, abdominal pain, or urinary symptoms. She continues to smoke ??1 pack/day. On ED arrival she was short of breath with wheezing, which improved with nebulizers. ED Course: * Vitals: Initial hypoxia (high 80s on RA); improved after nebulizers. * Labs: WBC 24.6, Hgb 13.8, Plt 247; Na 138, K 3.7, BUN 14, Cr 0.83; lactate 1.6. VBG pH 7.43, pCO? 46. UA: 0?1 WBCs. * Imaging: * Lower-extremity Doppler negative for DVT (per ED). * CT abdomen/pelvis: No acute process. * Treatment: IV fluids, IV Zosyn + vancomycin, blood cultures obtained. Admitted for further management of suspected sepsis. [facility] Medical History Polysubstance dependence Social History household members: spouse alcohol intake: current Meds Home Medications and Allergies Home Medications ?Medication ?Instructions ?Recorded ?Confirmed ?Type cephalexin 500 mg capsule 500 mg PO QID #28 caps 02/23 Rx doxycycline monohydrate 100 mg 100 mg PO BID #14 tabs 02/24/24 Rx tablet gabapentin 300 mg capsule 300 mg PO TID #42 caps 02/23 Rx ibuprofen 600 mg tablet 600 mg PO Q6H PRN Fever/Mild Pain 02/24/24 Rx (1-3) #30 tabs methadone 10 mg tablet 10 mg PO BID #28 tabs Rx oxycodone 5 mg tablet 5 mg PO Q3HR PRN Pain, Moder ate 02/24/24 Rx (4-6) #20 tabs pantoprazole 20 mg tablet,delayed 20 mg PO 0600 #30 ta bs 02/24/24 Rx release Allergies Allergy/AdvReac Type Severity Reaction Status Date / Time No Known Drug Allergies Allergy Verified 12/24/23 06:40 Review of Systems Review of Systems Narrative: 12 point review of system is negative unless otherwise stated in HPI Exam Vital Signs (past 8 hours): - 02/08/25 17:06 02/08/25 17:08 02/08/25 17:08 Temperature 103.2 F H Pulse Rate 105 H 111 H Respiratory Rate 20 Blood Pressure 162/71 H 162/71 H Pulse Oximetry 92 91 Oxygen Delivery Method Room Air Oxygen Flow Rate 02/08/25 17:30 02/08/25 17:30 02/08/25 18:00 Temperature Pulse Rate 104 H 102 H Respiratory Rate Blood Pressure 145/64 H Pulse Oximetry 91 Oxygen Delivery Method Oxygen Flow Rate 02/08/25 18:14 02/08/25 18:14 02/08/25 18:30 Temperature Pulse Rate 102 H 101 H Respiratory Rate 21 23 Blood Pressure 137/63 Pulse Oximetry 96 97 Oxygen Delivery Method Oxygen Flow Rate 02/08/25 18:30 02/08/25 19:20 02/08/25 19:20 Temperature Pulse Rate 109 H Respiratory Rate Blood Pressure 141/65 H 155/104 H Pulse Oximetry 96 Oxygen Delivery Method Oxygen Flow Rate 02/08/25 19:28 02/08/25 19:28 02/08/25 19:30 Temperature Pulse Rate 100 H 99 H Respiratory Rate 17 18 Blood Pressure 155/69 H Pulse Oximetry 95 97 Oxygen Delivery Method Oxygen Flow Rate 02/08/25 19:30 02/08/25 19:31 02/08/25 20:00 Temperature 100.1 F H Pulse Rate 99 H Respiratory Rate 25 H Blood Pressure 145/65 H Pulse Oximetry 94 Oxygen Delivery Method Room Air Oxygen Flow Rate 02/08/25 20:00 02/08/25 20:30 02/08/25 20:30 Temperature Pulse Rate 98 H Respiratory Rate 17 Blood Pressure 125/56 L 123/61 Pulse Oximetry 92 Oxygen Delivery Method Oxygen Flow Rate 02/08/25 21:00 02/08/25 21:00 02/08/25 21:30 Temperature Pulse Rate 97 H 89 Respiratory Rate 23 21 Blood Pressure 122/58 L Pulse Oximetry 92 95 Oxygen Delivery Method Oxygen Flow Rate 02/08/25 22:00 02/08/25 22:00 02/08/25 22:18 Temperature Pulse Rate 89 Respiratory Rate 13 Blood Pressure 114/55 L Pulse Oximetry 92 91 Oxygen Delivery Method Room Air Oxygen Flow Rate 02/08/25 22:18 02/08/25 22:30 02/08/25 22:30 Temperature 99.4 F Pulse Rate 84 89 Respiratory Rate 14 16 Blood Pressure 111/57 L 112/53 L Pulse Oximetry 91 Oxygen Delivery Method Oxygen Flow Rate 02/08/25 23:02 02/08/25 23:24 02/08/25 23:30 Temperature 99.7 F H 99.4 F Pulse Rate 89 Respiratory Rate 14 Blood Pressure 108/58 L Pulse Oximetry 98 Oxygen Delivery Method Oximask Oxygen Flow Rate 2 02/09/25 00:00 02/09/25 00:30 Temperature Pulse Rate 89 89 Respiratory Rate 14 17 Blood Pressure 104/53 L 109/53 L Pulse Oximetry 98 98 Oxygen Delivery Method Oxygen Flow Rate 2 2 Oxygen Delivery Method Oximask Oxygen Flow Rate 2 Narrative Exam Narrative: General: Alert, fatigued, mild distress from pain. HEENT: Moist mucous membranes; no scleral icterus. Cardiac: Regular rate/rhythm; no murmurs. Respiratory: Mild residual wheeze; improved airflow post-nebulizer. Abdomen: Soft, nondistended, nontender. Extremities: * Left leg: Diffuse erythema, warmth, significant edema and tenderness; open sores. * Right leg: Mild edema; scattered healing lesions. Skin: Multiple sores in various healing stages over extremities and torso. Neuro: Alert and oriented; moves all extremities. Psych: Cooperative; history of substance use acknowledged Objective Labs 02/08/25 18:07 02/08/25 18:07 Labs: Laboratory Results - last 24 hr 02/08/25 02/08/25 02/08/25 18:07 18:22 19:27 WBC 24.6 H RBC 5.01 Hgb 13.8 Hct 41.6 MCV 83.0 MCH 27.6 MCHC 33.2 RDW 14.5 Plt Count 247 Neut % (Auto) 94.8 H Lymph % (Auto) 2.7 L [place] % (Auto) 2.2 L Eos % (Auto) 0.3 L Baso % (Auto) 0.0 Neut # (Auto) 86682 H Lymph # (Auto) 700 L [place] # (Auto) 500 Eos # (Auto) 100 Baso # (Auto) 0 PT 13.6 H INR 1.2 APTT 53 H VBG pH 7.43 VBG pCO2 46.0 VBG pO2 22 L VBG HCO3 30 H VBG Total CO2 29 VBG O2 Saturation 39 L VBG Base Excess 5.1 H FiO2 % 21.0 % Sodium 138 Potassium 3.7 Chloride 100 Carbon Dioxide 30 BUN 14 Creatinine 0.83 Estimated GFR > 60 BUN/Creatinine Ratio 16.9 Glucose 127 H Lactate 2.0 Calcium 9.1 Total Bilirubin 1.0 AST 35 ALT 35 H Alkaline Phosphatase 100 Total Protein 7.5 Albumin 4.1 Globulin 3.4 Albumin/Globulin Ratio 1.2 Procalcitonin 3.35 H Urine Color Yellow Urine Appearance Clear Urine pH 7.5 Ur Specific [place] 1.015 Urine Protein Trace H Urine Glucose (UA) Negative Urine Ketones Negative Urine Occult Blood Negative Urine Nitrate Negative Urine Bilirubin Negative Urine Urobilinogen 1.0 Ur Leukocyte Esterase Negative Urine RBC None seen Urine WBC 0-1/hpf Ur Squamous Epith Cells 0-1 /hpf Urine Bacteria Occasional (0-1) Ur Culture Indicated? Cult not indicated Vol Urine Centrifuged 10ml (spun) 02/08/25 22:40 WBC RBC Hgb Hct MCV MCH MCHC RDW Plt Count Neut % (Auto) Lymph % (Auto) [place] % (Auto) Eos % (Auto) Baso % (Auto) Neut # (Auto) Lymph # (Auto) [place] # (Auto) Eos # (Auto) Baso # (Auto) PT INR APTT VBG pH VBG pCO2 VBG pO2 VBG HCO3 VBG Total CO2 VBG O2 Saturation VBG Base Excess FiO2 % Sodium Potassium Chloride Carbon Dioxide BUN Creatinine Estimated GFR BUN/Creatinine Ratio Glucose Lactate 1.6 Calcium Total Bilirubin AST ALT Alkaline Phosphatase Total Protein Albumin Globulin Albumin/Globulin Ratio Procalcitonin Urine Color Urine Appearance Urine pH Ur Specific [place] Urine Protein Urine Glucose (UA) Urine Ketones Urine Occult Blood Urine Nitrate Urine Bilirubin Urine Urobilinogen Ur Leukocyte Esterase Urine RBC Urine WBC Ur Squamous Epith Cells Urine Bacteria Ur Culture Indicated? Vol Urine Centrifuged Assessment & Plan Assessment and plan (1) Sepsis: Qualifiers: Sepsis acute organ dysfunction status: unspecified Sepsis type: sepsis due to unspecified organism Qualified Code(s): A41.9 - Sepsis, unspecified organism Status: Acute (2) Non-pressure chronic ulcer of left ankle limited to breakdown of skin: Status: Acute Plan * Sepsis secondary to left lower extremity cellulitis in the setting of IV drug use * Continue IV Zosyn + vancomycin. * Trend labs, vitals, lactate. * No murmur on exam?obtain echocardiogram to rule out endocarditis. * Wound care consultation. * Polysubstance abuse ? IV fentanyl * Begin opioid withdrawal protocol; monitor via COWS. * Verify and resume methadone if appropriate. * Left lower extremity pain * IV Toradol (short term) with renal monitoring. * Additional analgesia as needed. * Chronic tobacco use * Strong counseling on cessation. * Start nicotine patch. * Inhaler PRN for wheeze/shortness of breath. * DVT prophylaxis * Lovenox. Disposition: Admit inpatient for sepsis management requiring IV antibiotics and fluids. Expected LOS > 2 midnights. Code Status: Full. Telemedicine Documentation Evaluation performed via video communication device with nurse present. Patient located at [place], [place]. Provider located at [facility] site. Total time spent: 35 minutes, including chart review and medical decision- making. Time-Based Coding :: [TOTAL MINUTES] spent with patient and on the chart (including review of chart, obtaining history, exam, reviewing outside data, placing orders, documenting exam and treatment plan, and counseling patient) on [DATE]. Quality VTE Deep Vein Thrombosis/Pulmonary Embolism Present on Admission: No
[2025-02-09 01:02] LABS: MRSA (Nasal) PCR NOT DETECTED (Not Detect)
[2025-02-09] MEDS: NICOTINE 21 MG PATCH TOP ×2 (01:20→16:18)
[2025-02-09] MEDS: PIPERACILLIN/TAZO 3.375 GM in SODIUM CHLORIDE 0.9% 100 ML IV ×3 (02:33→19:28)
--- NOTE | 2025-02-09 06:04 | DI.ECHO.S_ITS ---
[facility] : : [id number] : : [place] : : [id number] : : Phone: [phone] Echocardiogram Report + + :Name: MERCEDES SCOTT Study Date: 02/09/2025 Height: 67 in : :[facility] ReadingLocation: Weight: 170 lb : : Gender: Female BSA: 1.9 m2 : :: 1970 Age: 54 yrs BP: 105/57 mmHg: :Reason For Study: CELLULITIS : :Ordering Physician: AUSTEN, : :ROSALINE MANCINI Performed By: Abel Bishop : :Referring: UNSPECIFIED : + + Interpretation Summary The left ventricle is normal in size. The left ventricle is hyperdynamic. The ejection fraction is estimated to be 75-80%. No significant LV outflow tract obstruction. The right ventricle is normal in size and function. All the valves were not well-visualized however no gross significant abnormalities seen. The IVC is dilated (diameter is greater than 2.1 cm) yet it collapses greater than 50% with a sniff. This suggests a right atrial pressure of 8 mm Hg. Procedure: A two-dimensional transthoracic echocardiogram with color flow and Doppler was performed. There is no prior echocardiogram noted for this patient. The study quality was technically difficult. The patient was in normal sinus rhythm during the exam. Left Ventricle: The left ventricle is normal in size. There is normal left ventricular wall thickness. The LVOT velocity is 1.4 m/s. There is no thrombus. The ejection fraction is estimated to be 75-80%. The left ventricle is hyperdynamic. There are no focal wall motion abnormalities. Normal diastolic function. Right Ventricle: The right ventricle is normal in size and function. Atria: The left atrial size is normal. Right atrial size is normal. There is no Doppler evidence for an interatrial shunt. Mitral Valve: There is mild mitral annular calcification. There is trace mitral regurgitation. Aortic Valve: The aortic valve is not well visualized. There is no aortic valve stenosis. There is no aortic regurgitation. Tricuspid Valve: The tricuspid valve is not well visualized, but is grossly normal. There is tricuspid annular calcification. There is trace tricuspid regurgitation. Pulmonary artery pressures cannot be estimated because of the lack of a measurable TR jet velocity. Pulmonic Valve: The pulmonic valve is not well visualized. Great Vessels: The aortic root is normal size. The ascending aorta could not be visualized. The pulmonary is not well visualized. The IVC is dilated (diameter is greater than 2.1 cm) yet it collapses greater than 50% with a sniff. This suggests a right atrial pressure of 8 mm Hg. Pericardium/ Pleura There is no pericardial effusion. There is no pleural effusion. MMode/2D Measurements & Calculations LVIDd: 4.3 cm LVOT diam: 2.0 cm LVIDs: 2.8 cm Ao root diam: 3.1 cm FS: 35.2 % EPSS: 0.73 cm IVSd: 0.89 cm LVPWd: 0.97 cm LV rodriguez. diameter/BSA (cm/m^2): 2.3 LV sys. diameter/BSA (cm/m^2): 1.5 LA A2 area: 20.9 cm2 RA long axis: 4.6 cm LA A4 area: 15.8 cm2 RA area: 14.9 cm2 LA length (vol): 4.4 cm RA vol: 40.6 ml LA vol: 63.4 ml RA : 21.5 ml/m2 LA vol index: 33.6 ml/m2 IVC diam: 2.2 cm RVD1 (basal): 3.2 cm RVD2 (mid): 2.6 cm TAPSE: 2.9 cm Doppler Measurements & Calculations Ao V2 max: 174.7 cm/sec LVOT Max Isak: 140.0 cm/sec Ao V2 mean: 123.2 cm/sec LV V1 max P.8 mmHg Ao max P.2 mmHg LV V1 VTI: 28.3 cm Ao mean P.6 mmHg FLOR(I,D): 2.5 cm2 Ao V2 VTI: 34.2 cm FLOR(V,D): 2.4 cm2 sev ratio: 0.83 FLOR indexed to BSA (cm^2/m^2): 1.3 MV E max isak: 81.5 cm/sec SV(LVOT): 86.4 ml MV A max isak: 72.3 cm/sec MV E/A: 1.1 Med Peak E' Isak: 9.3 cm/sec E/E' med: 8.8 Lat Peak E' Isak: 8.3 cm/sec E/E' lat: 9.9 E/e' average: 9.3 MV dec time: 0.25 sec Reading Physician:12:03 PM
[2025-02-09 06:56] LABS: Add Manual Diff / Slide Review NO; Hematocrit 37.6 % (36-46); Hemoglobin 12.4 g/dL (12.0-16.0); Lymphocytes Absolute Auto 900 /uL (1100-4500); Mean Corpuscular HGB Conc 32.8 % (30-36); Mean Corpuscular Hemoglobin 27.6 PG (26-34); Mean Corpuscular Volume 84.1 fL (80-100); Platelet Count 178 X10^3/uL (150-400)
[2025-02-09 07:13] LABS: Alanine Aminotransferase 27 IU/L (<35); Albumin 3.1 g/dL (3.5-5.0); Albumin Globulin Ratio 1.1 (1.0-2.8); Alkaline Phosphatase 75 U/L (38-126); Blood Urea Nitrogen 12 mg/dL (7-17); Calcium 7.9 mg/dL (8.4-10.2); Carbon Dioxide 24 mmol/L (22-32); Chloride 109 mmol/L (98-107); Estimated Glomerular Filt Rate > 60 mL/min (>60); Globulin 2.8 g/dL (1.7-4.1); Glucose 102 mg/dL (70-99); HEMOLYSIS 16 (0-50); Potassium 3.5 mmol/L (3.4-5.1); Sodium 138 mmol/L (137-145); Total Protein 5.9 g/dL (6.3-8.2)
[2025-02-09 07:15] LABS: Magnesium 1.5 mg/dL (1.6-2.3)
[2025-02-09] MEDS: KETOROLAC 30 MG/ML VIAL 15 MG IV (07:56)
[2025-02-09] MEDS: ACETAMINOPHEN 325 MG TABLET 650 MG PO (07:57)
[2025-02-09] MEDS: PANTOPRAZOLE DR 40 MG TABLET PO (07:57)
[2025-02-09] MEDS: VANCOMYCIN 750 MG/150 ML PIGGYBACK 150 MG IV ×3 (07:57→23:08)
--- NOTE | 2025-02-09 08:42 | P.HP_ITS ---
History of Present Illness History of Present Illness Chief complaint: Left leg pain, redness, and weakness. Narrative: From night doctor: 54-year-old female with a history of IV fentanyl use, prior sepsis from left leg soft-tissue infection, and multiple other medical issues presents with generalized weakness and worsening wounds on both lower extremities?most pronounced in the left leg, which is markedly erythematous, edematous, and tender. She reports that the left leg wound began approximately 2 days ago. She has multiple sores over her body in various stages of healing. Injects fentanyl primarily in the upper extremities. Unsure about fever. Denies chest pain, shortness of breath at present, abdominal pain, or urinary symptoms. She continues to smoke ??1 pack/day. On ED arrival she was short of breath with wheezing, which improved with nebulizers. ED Course: * Vitals: Initial hypoxia (high 80s on RA); improved after nebulizers. * Labs: WBC 24.6, Hgb 13.8, Plt 247; Na 138, K 3.7, BUN 14, Cr 0.83; lactate 1.6. VBG pH 7.43, pCO? 46. UA: 0?1 WBCs. * Imaging: * Lower-extremity Doppler negative for DVT (per ED). * CT abdomen/pelvis: No acute process. * Treatment: IV fluids, IV Zosyn + vancomycin, blood cultures obtained. Admitted for further management of suspected sepsis. ROS: All else reviewed and otherwise unremarkable except as noted in the history and physical. S: She is comfortable and denies anxiety or pain at this point. She denies any drainage from the forearm. O: BP 101/53, P 87, T 98.9. NAD, alert and oriented, fluent speech, calm. Chronically ill and non-toxic. Normocephalic skull, EOMI, anicteric sclera, symmetric pupils. Oropharynx unremarkable, no droop. Neck supple, midline trachea, no adenopathy. Lungs clear, normal rate and effort. Heart regular, no murmur gallop or rub. Abdomen is soft, non distended and non tender. Extremities are free of edema. Skin is red on entire left leg and mostly on the thigh. Some excoriations on both legs. Left arm is swollen and red with two wounds that are dry. No fluctuance. Joints are not swollen or deformed. IMAGING: * Lower-extremity Doppler negative for DVT (per ED). * CT abdomen/pelvis: No acute process. A/P: * Sepsis secondary to left lower extremity cellulitis in the setting of IV drug use * Continue IV Zosyn + vancomycin. * Trend labs, vitals, lactate. * No murmur on exam?obtain echocardiogram to rule out endocarditis. * Wound care consultation. * Nares MRSA screen. * Polysubstance abuse ? IV fentanyl * Begin opioid withdrawal protocol; monitor via COWS. * Verify and resume methadone if appropriate. * Left lower extremity pain (cellulitis) * IV Toradol (short term) with renal monitoring. * Additional analgesia as needed. * Chronic tobacco use * Strong counseling on cessation. * Start nicotine patch. * Inhaler PRN for wheeze/shortness of breath. PLAN: -continue IV antibiotics -nares MRSA screen -left arm ultrasound rule out abscess -Ativan as needed anxiety or agitation. DVT prophylaxis * Lovenox. [facility] Medical History Polysubstance dependence Social History household members: spouse alcohol intake: current Meds Home Medications and Allergies Home Medications ?Medication ?Instructions ?Recorded ?Confirmed ?Type cephalexin 500 mg capsule 500 mg PO QID #28 caps 02/23 Rx doxycycline monohydrate 100 mg 100 mg PO BID #14 tabs 02/24/24 Rx tablet gabapentin 300 mg capsule 300 mg PO TID #42 caps 02/23 Rx ibuprofen 600 mg tablet 600 mg PO Q6H PRN Fever/Mild Pain 02/24/24 Rx (1-3) #30 tabs methadone 10 mg tablet 10 mg PO BID #28 tabs Rx oxycodone 5 mg tablet 5 mg PO Q3HR PRN Pain, Moder ate 02/24/24 Rx (4-6) #20 tabs pantoprazole 20 mg tablet,delayed 20 mg PO 0600 #30 ta bs 02/24/24 Rx release Allergies Allergy/AdvReac Type Severity Reaction Status Date / Time No Known Drug Allergies Allergy Verified 12/24/23 06:40 Exam Vital Signs (past 8 hours): - 02/09/25 01:00 02/09/25 01:30 02/09/25 02:00 Temperature 98.9 F Pulse Rate 86 91 H 89 Respiratory Rate 18 16 16 Blood Pressure 108/59 L 105/60 99/53 L Pulse Oximetry 98 98 98 Oxygen Delivery Method Oxygen Flow Rate 2 02/09/25 02:18 02/09/25 02:30 02/09/25 03:00 Temperature Pulse Rate 91 H 85 Respiratory Rate 16 16 Blood Pressure 106/60 100/62 Pulse Oximetry 98 98 98 Oxygen Delivery Method Oximask Oxygen Flow Rate 2 2 2 02/09/25 03:30 02/09/25 04:00 02/09/25 04:30 Temperature Pulse Rate 87 85 87 Respiratory Rate 18 16 16 Blood Pressure 107/57 L 108/58 L 101/53 L Pulse Oximetry 98 98 98 Oxygen Delivery Method Oxygen Flow Rate 2 2 2 02/09/25 06:00 Temperature Pulse Rate Respiratory Rate Blood Pressure Pulse Oximetry 98 Oxygen Delivery Method Oximask Oxygen Flow Rate 2 Oxygen Delivery Method Oximask Oxygen Flow Rate 2 Objective Labs 02/09/25 06:45 02/09/25 06:45 Labs: Laboratory Results - last 24 hr 02/08/25 02/08/25 02/08/25 18:07 18:22 19:27 WBC 24.6 H RBC 5.01 Hgb 13.8 Hct 41.6 MCV 83.0 MCH 27.6 MCHC 33.2 RDW 14.5 Plt Count 247 Neut % (Auto) 94.8 H Lymph % (Auto) 2.7 L Reagan % (Auto) 2.2 L Eos % (Auto) 0.3 L Baso % (Auto) 0.0 Neut # (Auto) 13119 H Lymph # (Auto) 700 L Reagan # (Auto) 500 Eos # (Auto) 100 Baso # (Auto) 0 PT 13.6 H INR 1.2 APTT 53 H VBG pH 7.43 VBG pCO2 46.0 VBG pO2 22 L VBG HCO3 30 H VBG Total CO2 29 VBG O2 Saturation 39 L VBG Base Excess 5.1 H FiO2 % 21.0 % Sodium 138 Potassium 3.7 Chloride 100 Carbon Dioxide 30 BUN 14 Creatinine 0.83 Estimated GFR > 60 BUN/Creatinine Ratio 16.9 Glucose 127 H POC Whole Bld Glucose Lactate 2.0 Calcium 9.1 Magnesium Total Bilirubin 1.0 AST 35 ALT 35 H Alkaline Phosphatase 100 C-Reactive Protein Total Protein 7.5 Albumin 4.1 Globulin 3.4 Albumin/Globulin Ratio 1.2 Procalcitonin 3.35 H Urine Color Yellow Urine Appearance Clear Urine pH 7.5 Ur Specific [place] 1.015 Urine Protein Trace H Urine Glucose (UA) Negative Urine Ketones Negative Urine Occult Blood Negative Urine Nitrate Negative Urine Bilirubin Negative Urine Urobilinogen 1.0 Ur Leukocyte Esterase Negative Urine RBC None seen Urine WBC 0-1/hpf Ur Squamous Epith Cells 0-1 /hpf Urine Bacteria Occasional (0-1) Ur Culture Indicated? Cult not indicated Vol Urine Centrifuged 10ml (spun) Nasal Screen MRSA (PCR) 02/08/25 02/08/25 02/09/25 22:40 23:20 06:45 WBC 14.6 H RBC 4.48 Hgb 12.4 Hct 37.6 MCV 84.1 MCH 27.6 MCHC 32.8 RDW 14.5 Plt Count 178 Neut % (Auto) 89.6 H Lymph % (Auto) 6.4 L [place] % (Auto) 3.4 Eos % (Auto) 0.2 L Baso % (Auto) 0.4 Neut # (Auto) 49800 H Lymph # (Auto) 900 L Reagan # (Auto) 500 Eos # (Auto) 0 Baso # (Auto) 100 PT INR APTT VBG pH VBG pCO2 VBG pO2 VBG HCO3 VBG Total CO2 VBG O2 Saturation VBG Base Excess FiO2 % Sodium 138 Potassium 3.5 Chloride 109 H Carbon Dioxide 24 BUN 12 Creatinine 0.80 Estimated GFR > 60 BUN/Creatinine Ratio 15.0 Glucose 102 H POC Whole Bld Glucose Lactate 1.6 Calcium 7.9 L Magnesium 1.5 L Total Bilirubin 0.7 AST 32 ALT 27 Alkaline Phosphatase 75 C-Reactive Protein > 9.0 H Total Protein 5.9 L Albumin 3.1 L Globulin 2.8 Albumin/Globulin Ratio 1.1 Procalcitonin Urine Color Urine Appearance Urine pH Ur Specific [place] Urine Protein Urine Glucose (UA) Urine Ketones Urine Occult Blood Urine Nitrate Urine Bilirubin Urine Urobilinogen Ur Leukocyte Esterase Urine RBC Urine WBC Ur Squamous Epith Cells Urine Bacteria Ur Culture Indicated? Vol Urine Centrifuged Nasal Screen MRSA (PCR) Not detected 02/09/25 08:05 WBC RBC Hgb Hct MCV MCH MCHC RDW Plt Count Neut % (Auto) Lymph % (Auto) [place] % (Auto) Eos % (Auto) Baso % (Auto) Neut # (Auto) Lymph # (Auto) Reagan # (Auto) Eos # (Auto) Baso # (Auto) PT INR APTT VBG pH VBG pCO2 VBG pO2 VBG HCO3 VBG Total CO2 VBG O2 Saturation VBG Base Excess FiO2 % Sodium Potassium Chloride Carbon Dioxide BUN Creatinine Estimated GFR BUN/Creatinine Ratio Glucose POC Whole Bld Glucose 95 Lactate Calcium Magnesium Total Bilirubin AST ALT Alkaline Phosphatase C-Reactive Protein Total Protein Albumin Globulin Albumin/Globulin Ratio Procalcitonin Urine Color Urine Appearance Urine pH Ur Specific [place] Urine Protein Urine Glucose (UA) Urine Ketones Urine Occult Blood Urine Nitrate Urine Bilirubin Urine Urobilinogen Ur Leukocyte Esterase Urine RBC Urine WBC Ur Squamous Epith Cells Urine Bacteria Ur Culture Indicated? Vol Urine Centrifuged Nasal Screen MRSA (PCR) Assessment & Plan Time-Based Coding :: [TOTAL MINUTES] spent with patient and on the chart (including review of chart, obtaining history, exam, reviewing outside data, placing orders, documenting exam and treatment plan, and counseling patient) on [DATE]. Quality VTE Deep Vein Thrombosis/Pulmonary Embolism Present on Admission: No
[2025-02-09] MEDS: ENOXAPARIN 40 MG/0.4 ML SYRINGE SUBCUT (09:04)
--- NOTE | 2025-02-09 10:04 | PC.NURSE ---
Day shift: Pt A&Ox3, unsure of date and day of week. Lethargic. Cooperative with care. Rings and bracelets removed with pt approval, placed in specimen container at bedside on table due to widespread edema and tightening of jewelry. Care ongoing.
--- NOTE | 2025-02-09 10:44 | DI.US.S_ITS ---
PROCEDURE: US EXTREMITY NONVASC UPPER LT INDICATIONS: Swelling R/O abscess TECHNIQUE: Real-time scanning was performed of the left forearm , with image documentation. COMPARISON: None. FINDINGS: In the area of concern of the left forearm, there is no focal fluid collection. There is subcutaneous fat hyperemia and mild dermal thickening. IMPRESSION: Findings concerning for cellulitis of the area of concern of the left forearm. No focal fluid collection or abscess is identified sonographically. Dictated by: Geovany Mayo M.D. on 02/09/2025 at 13:42 Approved by: Geovany Mayo M.D. on 02/09/2025 at 13:43
[2025-02-09] MEDS: MAGNESIUM CHLORIDE 64 MG TABLET 128 MG PO (11:13)
[2025-02-09] MEDS: POTASSIUM CHLORIDE 20 MEQ TAB 40 MEQ PO (11:13)
[2025-02-10] VITALS (13 sets, daily range): BP systolic 127–146; BP diastolic 66–85; PULSE 75–86; RESP 13–20; O2SAT 91–97
[2025-02-10] MEDS: SODIUM CHLORIDE 0.9% 1,000 ML 150 ML IV (02:46)
[2025-02-10] MEDS: PIPERACILLIN/TAZO 3.375 GM in SODIUM CHLORIDE 0.9% 100 ML IV ×2 (03:37→11:36)
[2025-02-10] MEDS: VANCOMYCIN 750 MG/150 ML PIGGYBACK 150 MG IV (06:59)
[2025-02-10 07:06] LABS: Blood Urea Nitrogen 10 mg/dL (7-17); Calcium 8.0 mg/dL (8.4-10.2); Carbon Dioxide 21 mmol/L (22-32); Chloride 111 mmol/L (98-107); Estimated Glomerular Filt Rate > 60 mL/min (>60); Glucose 91 mg/dL (70-99); HEMOLYSIS < 15 (0-50); Magnesium 1.7 mg/dL (1.6-2.3); Potassium 3.4 mmol/L (3.4-5.1); Sodium 139 mmol/L (137-145)
[2025-02-10] MEDS: PANTOPRAZOLE DR 40 MG TABLET PO (07:07)
--- NOTE | 2025-02-10 07:42 | P.PN_ITS ---
Subjective Subjective Date Patient Seen: 02/10/25 Interval history: This is a 54-year-old female with a history of IV fentanyl use, prior sepsis from left leg soft-tissue infection, and multiple other medical issues presents with generalized weakness and worsening wounds on both lower extremities?most pronounced in the left leg, which is markedly erythematous, edematous, and tender. She reports that the left leg wound began approximately 2 days ago. She has multiple sores over her body in various stages of healing. Injects fentanyl primarily in the upper extremities. Unsure about fever. Denies chest pain, shortness of breath at present, abdominal pain, or urinary symptoms. She continues to smoke ??1 pack/day. On ED arrival she was short of breath with wheezing, which improved with nebulizers. ED Course: * Vitals: Initial hypoxia (high 80s on RA); improved after nebulizers. * Labs: WBC 24.6, Hgb 13.8, Plt 247; Na 138, K 3.7, BUN 14, Cr 0.83; lactate 1.6. VBG pH 7.43, pCO? 46. UA: 0?1 WBCs. * Imaging: * Lower-extremity Doppler negative for DVT (per ED). * CT abdomen/pelvis: No acute process. * Treatment: IV fluids, IV Zosyn + vancomycin, blood cultures obtained. 02/10: Her magnesium is 1.7 with a potassium of 3.4. She says that she is feeling early fentanyl withdrawal symptoms. We will prescribe small doses of IV fentanyl in addition to gabapentin/Robaxin. She says her symptoms usually include restlessness, diarrhea and nausea. She did require lorazepam for those symptoms overnight. The left leg culture is growing group B strep so the antibiotics will be changed to ceftriaxone. NAD, alert and oriented, fluent speech, calm. Chronically ill and non-toxic. Normocephalic skull Neck supple, midline trachea, no adenopathy. Lungs clear, normal rate and effort. Heart regular, no murmur gallop or rub. Extremities are free of edema. Skin is red on a localized area of the left calf. Some excoriations on both legs. Left arm is swollen and red with two wounds that are dry. No fluctuance. Joints are not swollen or deformed. IMAGING: * Lower-extremity Doppler negative for DVT (per ED). * CT abdomen/pelvis: No acute process. A/P: * Sepsis secondary to left lower extremity cellulitis in the setting of IV drug use * GBS on wound culture. Start on Ceftriaxone and stop IV Zosyn + vancomycin. * Trend labs, vitals * No murmur on exam?obtained echocardiogram: All the valves were not well- visualized however no gross significant abnormalities seen. * Wound care consultation. * Nares MRSA screen. * Polysubstance abuse ? IV fentanyl * Begin opioid withdrawal protocol with Fentanyl/Robaxin/Gabapentin/Ativan; monitor via COWS. * Verify and resume methadone if appropriate. * Left lower extremity pain (cellulitis) * IV Toradol (short term) with renal monitoring. * Additional analgesia as needed. * Chronic tobacco use * Strong counseling on cessation. * Start nicotine patch. * Inhaler PRN for wheeze/shortness of breath. PLAN: -Changed to IV Ceftriaxone -nares MRSA screen -left arm ultrasound ruled out abscess -Ativan as needed anxiety or agitation. DVT prophylaxis * Lovenox. Exam Vital Signs (past 8 hours): - 02/10/25 00:00 02/10/25 00:10 02/10/25 02:00 Pulse Rate 86 85 Respiratory Rate 16 20 Blood Pressure 145/77 H 129/68 Pulse Oximetry 95 93 Oxygen Delivery Method Room Air Oxygen Flow Rate 0 02/10/25 04:00 02/10/25 06:00 Pulse Rate 85 Respiratory Rate 18 Blood Pressure 132/67 Pulse Oximetry 93 91 Oxygen Delivery Method Room Air Oxygen Flow Rate 0 Oxygen Delivery Method Room Air Oxygen Flow Rate 0 Objective Labs 02/09/25 06:45 02/10/25 06:35 Labs: Laboratory Results - last 24 hr 02/09/25 02/09/25 02/10/25 08:05 12:10 06:35 Sodium 139 Potassium 3.4 Chloride 111 H Carbon Dioxide 21 L BUN 10 Creatinine 0.61 Estimated GFR > 60 BUN/Creatinine Ratio 16.4 Glucose 91 POC Whole Bld Glucose 95 111 H Calcium 8.0 L Magnesium 1.7 Vancomycin Trough 11.7 PFSH Medical History Polysubstance dependence Social History household members: spouse alcohol intake: current Assessment & Plan Time-Based Coding :: [TOTAL MINUTES] spent with patient and on the chart (including review of chart, obtaining history, exam, reviewing outside data, placing orders, documenting exam and treatment plan, and counseling patient) on [DATE]. Quality VTE Deep Vein Thrombosis/Pulmonary Embolism Present on Admission: No
[2025-02-10] MEDS: ENOXAPARIN 40 MG/0.4 ML SYRINGE SUBCUT (09:20)
[2025-02-10] MEDS: NICOTINE 21 MG PATCH TOP (09:20)
[2025-02-10] MEDS: MULTIVITAMIN 1 TABLET 1 TAB PO (09:20)
[2025-02-10] MEDS: GABAPENTIN 100 MG CAPSULE PO ×3 (11:36→21:29)
[2025-02-10] MEDS: cefTRIAXone 2,000 MG in SODIUM CHLORIDE 0.9% 100 ML 200 MG IV (13:23)
--- NOTE | 2025-02-10 15:27 | PM.CN ---
History of Present Illness Consult details Date Patient Seen: 02/10/25 Time Patient Seen: 15:00 Chief complaint: Left leg pain, redness, and weakness. Narrative: The patient is a 54-year-old female with IV fentanyl abuse who was admitted with sepsis and found to have an ulcer on the posterior left ankle and eschars on her left arm. The patient reports that the ulcer on her left ankle 1st began as a cut about 1 year ago. It is occasionally painful but she has not noted any redness. She has had some intermittent drainage. The eschars on the left arm developed after IV injections. The patient was found to be febrile and had significant leukocytosis upon admission. She has never sought medical attention for treatment of the ulcers. The patient does have some occasional swelling of both lower extremities. She reports a good appetite and denies having any other recent changes in her overall health. The patient is a current cigarette smoker. Meds Home Medications and Allergies Home Medications ?Medication ?Instructions ?Recorded ?Confirmed ?Type cephalexin 500 mg capsule 500 mg PO QID #28 caps 02/24/24 Rx doxycycline monohydrate 100 mg 100 mg PO BID #14 tabs 02/24/24 Rx tablet gabapentin 300 mg capsule 300 mg PO TID #42 caps 02/24/24 Rx ibuprofen 600 mg tablet 600 mg PO Q6H PRN Fever/Mild Pain 02/24/24 Rx (1-3) #30 tabs methadone 10 mg tablet 10 mg PO BID #28 tabs 02/24/24 Rx oxycodone 5 mg tablet 5 mg PO Q3HR PRN Pain, Moderate 02/24/24 Rx (4-6) #20 tabs pantoprazole 20 mg tablet,delayed 20 mg PO 0600 #30 tabs 02/24/24 Rx release Allergies Allergy/AdvReac Type Severity Reaction Status Date / Time No Known Drug Allergies Allergy Verified 12/24/23 06:40 Review of Systems Constitutional Comments: Positive for fever and chills Respiratory Comments: Occasional shortness of breath Integumentary/Breasts Comments: Skin ulcers Exam Vital Signs (past 8 hours): - 02/10/25 08:00 02/10/25 10:00 02/10/25 12:00 Pulse Rate 84 85 Respiratory Rate 16 13 Blood Pressure 134/78 127/66 Pulse Oximetry 96 95 95 Oxygen Delivery Method Room Air Oxygen Flow Rate 0 Oxygen Delivery Method Room Air Oxygen Flow Rate 0 Narrative Exam Narrative: Well-developed well-nourished female who is alert and oriented, no apparent distress Skin Other: Dry eschars dorsum of left forearm, non pressure ulcer posterior left ankle with mild periwound erythema Extrem Other: Palpable pedal pulses, mild lower extremity swelling. Objective Labs 02/09/25 06:45 02/10/25 06:35 Labs: Laboratory Results - last 24 hr 02/10/25 06:35 Sodium 139 Potassium 3.4 Chloride 111 H Carbon Dioxide 21 L BUN 10 Creatinine 0.61 Estimated GFR > 60 BUN/Creatinine Ratio 16.4 Glucose 91 Calcium 8.0 L Magnesium 1.7 Vancomycin Trough 11.7 [facility] Medical History Polysubstance dependence Social History household members: spouse Tobacco & Substance Use alcohol intake: current Assessment & Plan Assessment and plan (1) Non-pressure chronic ulcer of left ankle with fat layer exposed: Status: Acute (2) Non-pressure chronic ulcer of right forearm with unspecified severity: Status: Acute Assessment & Plan narrative: Start daily dressing changes with Iodoflex to ulcer posterior left ankle and eschars left forearm. Follow up at wound center after discharge for further evaluation and treatment. Time-Based Coding :: [45 MINUTES] spent with patient and on the chart (including review of chart, obtaining history, exam, reviewing outside data, placing orders, documenting exam and treatment plan, and counseling patient) on [02/10/25].
[2025-02-10] MEDS: fentaNYL 100 MCG/2 ML INJ 25 MCG IV (17:44)
[2025-02-11] VITALS (12 sets, daily range): BP systolic 140–167; BP diastolic 77–87; PULSE 80–96; RESP 12–22; O2SAT 93–97
[2025-02-11] MEDS: fentaNYL 100 MCG/2 ML INJ 25 MCG IV ×8 (03:37→23:00)
--- NOTE | 2025-02-11 07:26 | P.PN_ITS ---
Subjective Subjective Date Patient Seen: 02/11/25 Interval history: This is a 54-year-old female with a history of IV fentanyl use, prior sepsis from left leg soft-tissue infection, and multiple other medical issues presents with generalized weakness and worsening wounds on both lower extremities?most pronounced in the left leg, which is markedly erythematous, edematous, and tender. She reports that the left leg wound began approximately 2 days ago. She has multiple sores over her body in various stages of healing. Injects fentanyl primarily in the upper extremities. Unsure about fever. Denies chest pain, shortness of breath at present, abdominal pain, or urinary symptoms. She continues to smoke ??1 pack/day. On ED arrival she was short of breath with wheezing, which improved with nebulizers. ED Course: * Vitals: Initial hypoxia (high 80s on RA); improved after nebulizers. * Labs: WBC 24.6, Hgb 13.8, Plt 247; Na 138, K 3.7, BUN 14, Cr 0.83; lactate 1.6. VBG pH 7.43, pCO? 46. UA: 0?1 WBCs. Imaging: Lower-extremity Doppler negative for DVT (per ED). * CT abdomen/pelvis: No acute process. * Treatment: IV fluids, IV Zosyn + vancomycin, blood cultures obtained. 02/10: Her magnesium is 1.7 with a potassium of 3.4. She says that she is feeling early fentanyl withdrawal symptoms. We will prescribe small doses of IV fentanyl in addition to gabapentin/Robaxin. She says her symptoms usually include restlessness, diarrhea and nausea. She did require lorazepam for those symptoms overnight. The left leg culture is growing group B strep so the antibiotics will be changed to ceftriaxone. 02/11: Withdrawal symptoms have been stabilized. Cellulitis redness has improved. Complains of urinary frequency. Already on ceftriaxone. Plan home on oral antibiotics tomorrow. NAD, alert and oriented, fluent speech, calm. Chronically ill and non-toxic. Normocephalic skull Neck supple, midline trachea, no adenopathy. Lungs clear, normal rate and effort. Heart regular, no murmur gallop or rub. Extremities are free of edema. Skin redness resolving on left calf. Some excoriations on both legs. Left arm is swollen and red with two wounds that are dry. No fluctuance. Joints are not swollen or deformed. IMAGING: * Lower-extremity Doppler negative for DVT (per ED). * CT abdomen/pelvis: No acute process. A/P: * Sepsis secondary to left lower extremity cellulitis in the setting of IV drug use * Group G Strep on wound culture. Continue Ceftriaxone and stopped IV Zosyn + vancomycin. * Trend labs, vitals * No murmur on exam?obtained echocardiogram: All the valves were not well- visualized however no gross significant abnormalities seen. * Wound care consultation appreciated * Nares MRSA screen was negative * Polysubstance abuse ? IV fentanyl * Continue opioid withdrawal protocol with Fentanyl/Robaxin/Gabapentin/Ativan ; monitor via COWS. * Verify and resume methadone if appropriate. * Left lower extremity pain (cellulitis) * IV Toradol (short term) with renal monitoring. * Additional analgesia as needed. * Chronic tobacco use * Strong counseling on cessation. * Start nicotine patch. * Inhaler PRN for wheeze/shortness of breath. PLAN: -Changed to IV Ceftriaxone -nares MRSA screen negative -left arm ultrasound ruled out abscess -Ativan as needed anxiety or agitation. -likely able to go home tomorrow 02/12 on oral antibiotics. DVT prophylaxis * Lovenox. Exam Vital Signs (past 8 hours): - 02/10/25 23:30 02/11/25 00:00 02/11/25 02:00 Pulse Rate 75 82 Respiratory Rate 14 14 Blood Pressure 140/77 140/77 Pulse Oximetry 97 93 Oxygen Delivery Method Room Air Oxygen Flow Rate 0 02/11/25 04:00 02/11/25 04:38 02/11/25 06:00 Pulse Rate 82 81 Respiratory Rate 18 16 Blood Pressure 145/79 H Pulse Oximetry 95 95 Oxygen Delivery Method Room Air Oxygen Flow Rate 0 Oxygen Delivery Method Room Air Oxygen Flow Rate 0 Objective Labs 02/09/25 06:45 02/10/25 06:35 [facility] Medical History Polysubstance dependence Social History household members: spouse alcohol intake: current Assessment & Plan Time-Based Coding :: [TOTAL MINUTES] spent with patient and on the chart (including review of chart, obtaining history, exam, reviewing outside data, placing orders, documenting exam and treatment plan, and counseling patient) on [DATE]. Quality VTE Deep Vein Thrombosis/Pulmonary Embolism Present on Admission: No
[2025-02-11] MEDS: NICOTINE 21 MG PATCH TOP (10:04)
[2025-02-11] MEDS: ENOXAPARIN 40 MG/0.4 ML SYRINGE SUBCUT (10:04)
[2025-02-11] MEDS: MULTIVITAMIN 1 TABLET 1 TAB PO (10:05)
[2025-02-11] MEDS: GABAPENTIN 100 MG CAPSULE PO ×3 (10:05→20:43)
[2025-02-11] MEDS: cefTRIAXone 2,000 MG in SODIUM CHLORIDE 0.9% 100 ML 200 MG IV (13:59)
--- NOTE | 2025-02-11 16:49 | CM.DANOTE ---
DCP Assessment note late entry for 02/10/25 pt is a 54 yo F PMH of polysubstance abuse admitted with cellulitis/wounds on legs. chronic wounds all over body. HUMAN RESOURCES EXECUTIVE ASSISTANT reviewed EMR. per Dr. Palmer anticipate home on PO abx. Wound consult while here rec f/u in OP setting HUMAN RESOURCES EXECUTIVE ASSISTANT met with pt in room,awake and conversational but kept eyes closed for most of conversation. pt lives in mobile home with spouse. does not work. no DME at baseline. reports polysubstance use with this HUMAN RESOURCES EXECUTIVE ASSISTANT, vague on details of specific substances/frequency/duration. POS in ED for cocaine, amphetamines, methamphetamines, and opiates. denies being interested in INPT rehab from this hospitalization. but open to working with [facility] recovery navigator program. no PCP, open to list of PCP in [place]. will likely need ride home with medicaid transport but will try friends first. reports concerned about losing mobile home in a few months due to financial struggles. does not work right now neither does spouse. in a WC. P: anticipate dc home on PO abx in a few days. transport either friend vs medicaid transport. continue to follow closely for DCP coordination MANUEL Hidalgo Discharge Planning/Care Management Advanced directive, confirm from FAMILY Start: 02/09/25 00:09 Freq: Q24H Status: Active Protocol: Document 02/09/25 00:09 (Rec: 02/09/25 00:15 [id number]) Advance Directive, confirm on record Time 00:15 Person contacted no one here Copy received No Document 02/10/25 00:09 (Rec: 02/10/25 01:06 [id number]) Advance Directive, confirm on record Time 00:15 Person contacted no one here Copy received No Time 01:05 Person contacted no one here Discharge Assessment Start: 02/08/25 23:24 Freq: Status: Active Protocol: Document 02/11/25 16:48 SL (Rec: 02/11/25 16:49 SL [id number]) Discharge Planning Assessment Assigned Discharge MANUEL [employer] Aide Provider none Insurance Coordinated Care Advance Directives? No Advance Directives No on File History Provided By Patient,Medical Record Prior Living Mobile home Arrangements Household Members spouse Type of Relies on Others transporation used prior to admit Independent with ADL Yes 's Is patient alert and Yes oriented? Discharge Plan Home Transportation Medicaid transport Arrangement Referrals Initiated Other Additional Comment Pt was previously given [facility] resources, pt currently unsure if she is interested in [facility] tx at this time. Will continue to consider. Referral sent to Recovery Navigator program with [facility] Review Status In Process Please Provide Date 02/11/25 Initial DC Assessment Was Performed Next Review Type Continued Stay Review
--- NOTE | 2025-02-11 16:55 | CM.DPNOTE ---
DCP note BARBER INSTRUCTOR reviewed EMR per provider, another day or two of IV abx. then switch to PO. BARBER INSTRUCTOR emailed with Recovery Navigator Program Weight Shifter Noreen Jonas <[email or web address] in [place]. sent them referral information. f/u with them Mon. BARBER INSTRUCTOR unfortunately ran out of time to provide PCP and recovery navigator program resources, CM team will provide those resources tomorrow. need to coordinate with OP wound care team about f/u appts. P: dc tomorrow vs Thurs home, medicaid or friend to transport. f/u with Wound care team on OP appts. will continue to follow closely for DCP Coordination MANUEL Hidalgo
--- NOTE | 2025-02-11 17:57 | PC.NURSE ---
Pt monitored for COWS during shift, PRN fentanly and a singel dose of PRN ativan used throughout shift. Pt very thankful and corporative. Multiple runny bms. Little appetite. Pt bandages intact.
[2025-02-12] MEDS: KETOROLAC 30 MG/ML VIAL 15 MG IV (01:01)
[2025-02-12] MEDS: fentaNYL 100 MCG/2 ML INJ 25 MCG IV ×3 (01:08→06:01)
[2025-02-12 02:00] VITALS: O2SAT 93
[2025-02-12 06:00] VITALS: BP 160/94; PULSE 81; RESP 24; O2SAT 94
--- NOTE | 2025-02-12 06:12 | PC.NURSE ---
sericulture teacher RN note pt restless and anxious overnight, picking at skin and pulling off dsgs, pt encouraged to keep wounds covered, frequently asking for meds for withdrawls, COWS monitored, prn meds given, VSS, afebrile, frequent loose stools, voiding mod amts clear yellow urine in bedside commode, call barrios within reach, care ongoing
--- NOTE | 2025-02-12 08:22 | P.DS_ITS ---
History of Present Illness History of Present Illness Chief complaint: Left leg pain, redness, and weakness. Narrative: From night doctor: 54-year-old female with a history of IV fentanyl use, prior sepsis from left leg soft-tissue infection, and multiple other medical issues presents with generalized weakness and worsening wounds on both lower extremities?most pronounced in the left leg, which is markedly erythematous, edematous, and tender. She reports that the left leg wound began approximately 2 days ago. She has multiple sores over her body in various stages of healing. Injects fentanyl primarily in the upper extremities. Unsure about fever. Denies chest pain, shortness of breath at present, abdominal pain, or urinary symptoms. She continues to smoke ??1 pack/day. On ED arrival she was short of breath with wheezing, which improved with nebulizers. ED Course: * Vitals: Initial hypoxia (high 80s on RA); improved after nebulizers. * Labs: WBC 24.6, Hgb 13.8, Plt 247; Na 138, K 3.7, BUN 14, Cr 0.83; lactate 1.6. VBG pH 7.43, pCO? 46. UA: 0?1 WBCs. * Imaging: * Lower-extremity Doppler negative for DVT (per ED). * CT abdomen/pelvis: No acute process. * Treatment: IV fluids, IV Zosyn + vancomycin, blood cultures obtained. Admitted for further management of suspected sepsis. IMAGING: * Lower-extremity Doppler negative for DVT (per ED). * CT abdomen/pelvis: No acute process. A/P: * Sepsis secondary to left lower extremity cellulitis in the setting of IV drug use * Continue IV Zosyn + vancomycin. * Trend labs, vitals, lactate. * No murmur on exam?obtain echocardiogram to rule out endocarditis. * Wound care consultation. * Nares MRSA screen. * Polysubstance abuse ? IV fentanyl * Begin opioid withdrawal protocol; monitor via COWS. * Verify and resume methadone if appropriate. * Left lower extremity pain (cellulitis) * IV Toradol (short term) with renal monitoring. * Additional analgesia as needed. * Chronic tobacco use * Strong counseling on cessation. * Start nicotine patch. * Inhaler PRN for wheeze/shortness of breath. DVT prophylaxis * Lovenox. Hospital course: She was treated with IV antibiotics, wound cultures grew out strep. She would good improvement of her leg cellulitis including erythema and swelling. In the day of discharge he had no no residual pain. She was 1 small ulceration which appeared to be dry and unremarkable. Nares MRSA screen negative. Discharge Providers Provider Date of admission: 02/08/25 22:36 Discharge Date: 02/12/25 Primary care physician: *ED Temp* Consults: 02/09/25 01:21 Consult to Wound Care Routine Comment: Consulting Provider: [facility] 02/09/25 06:04 Consult to Wound Care Routine Comment: Consulting Provider: [facility] 02/09/25 23:09 Consult to Dietitian, Adult Routine Comment: Reason For Exam: alcohol abuse Discharge provider: Ede Stern MD Summary Hospital Course Discharge Diagnosis: 1. Left leg cellulitis, secondary to group B strep. Improved. 2. Left leg ulceration, improving. 3. Sepsis, improved. 4. Polysubstance abuse including history of IV fentanyl, stable. 5. Tobacco dependence, stable. Hospital Course: See above. Status at Discharge Cognitive/behavioral status at discharge: oriented Functional status at discharge: independent ambulation Overall status at discharge: patient is back to baseline Time Spent with Patient Time spent: Greater than 30 minutes Time spent discussing smoking cessation with patient: more than 10 minutes Exam Vital Signs (past 8 hours): - 02/12/25 02:00 02/12/25 06:00 02/12/25 06:00 Pulse Rate 81 Respiratory Rate 24 Blood Pressure 160/94 H Pulse Oximetry 93 94 94 Oxygen Delivery Method Room Air Room Air Oxygen Flow Rate 0 Oxygen Delivery Method Room Air Oxygen Flow Rate 0 Narrative Exam Narrative: NAD, alert and oriented. Fluent speech. Lungs are clear, normal rate and effort. Heart is regular, no murmur gallop or rub. Abdomen is soft, non distended. Extremities are free of edema. Left forearm eschars, evaluated by wound care. Objective Labs 02/09/25 06:45 02/10/25 06:35 [facility] Medical History Polysubstance dependence Social History household members: spouse alcohol intake: current Discharge Assessment & Plan Assessment and Plan Assessment: 1. Left leg cellulitis, secondary to group B strep. Improved. 2. Left leg ulceration, improving. 3. Sepsis, improved. 4. Polysubstance abuse including history of IV fentanyl, stable. 5. Tobacco dependence, stable. Plan of Treatment: Discharge home, continue antibiotics for 5 additional days. Referral to [facility] wound care. Discharge Plan Discharge Plan Patient Disposition: Home Provider Discharge Comment: Stable for discharge home. Discharge orders & Medications Prescriptions: New cephalexin 500 mg capsule 500 mg PO QID Qty: 20 0RF doxycycline hyclate 100 mg capsule 100 mg PO BID Qty: 10 0RF Continued methadone 10 mg Tablet 10 mg PO BID Qty: 28 0RF pantoprazole 20 mg Tablet,Delayed Release (Dr/Ec) 20 mg PO 0600 Qty: 30 0RF gabapentin 300 mg Capsule 300 mg PO TID Qty: 42 0RF ibuprofen 600 mg Tablet 600 mg PO Q6H PRN (Reason: Fever/Mild Pain (1-3)) Qty: 30 0RF oxycodone 5 mg Tablet 5 mg PO Q3HR PRN (Reason: Pain, Moderate (4-6)) Qty: 20 0RF Discontinued doxycycline monohydrate 100 mg tablet 100 mg PO BID Qty: 14 0RF cephalexin 500 mg capsule 500 mg PO QID Qty: 28 0RF Follow up/Referrals: Naif Hoffman MD [Physician, Wound Care] *CAMILO Parks* [Primary Care Provider, Emergency Medicine] Discharge Health Status Multidrug resistant organism: No MDRO Diet/Activity/Treatments Diet: Regular Skin/Wound/Dressing Care Report to your healthcare provider any signs of infection, such as:: chills, fever, night sweats, increased pain, unusual drainage and unusual redness Visit Report/Discharge Packet Instructions: DI for Cellulitis -- Adult Stand Alone Forms: Patient Portal/API Discharge Data Primary Care Provider: *[facility]* Quality VTE Deep Vein Thrombosis/Pulmonary Embolism Present on Admission: No
[2025-02-12] MEDS: PANTOPRAZOLE DR 40 MG TABLET PO (08:24)
[2025-02-12] MEDS: GABAPENTIN 100 MG CAPSULE PO (08:24)
[2025-02-12] MEDS: NICOTINE 21 MG PATCH TOP (08:24)
[2025-02-12] MEDS: ENOXAPARIN 40 MG/0.4 ML SYRINGE SUBCUT (08:24)
[2025-02-12] MEDS: MULTIVITAMIN 1 TABLET 1 TAB PO (08:24)
[2025-02-12 10:00] VITALS: BP 155/88; PULSE 88; RESP 27; TEMP 36.8; O2SAT 95
--- NOTE | 2025-02-12 14:12 | CM.DPC ---
Recovery Navigator Info provided and [facility] PCP New patient info provided.
== END 2025-02-12 12:07 | disposition home or self-care (01) | DRG 720 ==
LOC: ED 22:06 → AC 22:36 → ICU 23:09
PROVIDERS: Emergency Medicine; Pharmacist Pharmacist Clinician (PhC)/ Clinical Pharmacy Specialist; Admitting Provider Internal Medicine; Emergency Provider Family Medicine; Referring Provider Family Medicine; Visit Provider Internal Medicine
DX: A41.9 Sepsis, unspecified organism (principal); L03.116 Cellulitis of left lower limb; F11.13 Opioid abuse with withdrawal; B95.1 Streptococcus, group B, as the cause of diseases classified elsewhere; L97.322 Non-pressure chronic ulcer of left ankle with fat layer exposed; L98.A21 Non-pressure chronic ulcer of right forearm; F17.210 Nicotine dependence, cigarettes, uncomplicated; R06.02 Shortness of breath
CPT/HCPCS: 36415; 71045; 74177; 76882; 80048; 80053; 80202; 81001; 82805; 82962; 83605; 83735; 84145; 85025; 85610; 85730; 86140; 87040; 87070; 87075; 87205; 87797; 93005; 93306; 93971; 96361; 96365; 96367; 96375; 96376; 99284; J0696; J1650; J1885; J2060; J2543; J3010; J3375; J7030; J7050; Q9967